=== PATIENT | female | born 1950 | race Caucasian/White ===

== ENCOUNTER 2019-10-25 13:37 | Inpatient (IN) | payer MEDICARE, OTHER ==
[~2019-10-25] VITALS: Ht 167.6 cm; Wt 81.2 kg
--- NOTE | 2019-10-25 14:00 | Emergency Department Note ---
History of Present Illnes History of Present Illness Chief Complaint: Flank Pain History of Present Illness This is a 69 year old female that is here complaining of left-sided flank pain for the last 4-6 days. Patient states that she's been taking hot baths for this which makes it better. No modifying factors. Currently moderate degree of pain . Historian: Patient Radiation: Reports back (L flank) Severity: moderate Onset quality: gradual Duration (how long): day(s) (5) Timing of current episode: constant Progression: worsening Context: Denies recent illness Relieving factors: other (hot therapy) Exacerbating factors: none Associated symptoms: Denies denies other symptoms, Denies confusion, Denies diaphoresis, Denies loss of appetite, Denies weakness Treatments prior to arrival: none Past Medical/Family History Physician Review I have reviewed the patient's past medical and family history. Any updates have been documented here. Review of Systems Review of Systems Constitutional: Reports no symptoms EENTM: Reports no symptoms Cardiovascular: Reports no symptoms Respiratory: Reports no symptoms Gastrointestinal: Reports no symptoms Genitourinary: Reports no symptoms Musculoskeletal: Reports no symptoms Integumentary: Reports no symptoms Neurological: Reports no symptoms Psychological: Reports no symptoms Endocrine: Reports no symptoms Hematological/Lymphatic: Reports no symptoms Physical Exam Related Data Allergies: Coded Allergies: No Known Allergies (Unverified , 10/25/19) Physical Exam CONSTITUTIONAL Constitutional: Present well-developed, Present well-nourished HENT HENT: Present normocephalic, Present atraumatic, Present oropharynx clear/moist, Present nose normal HENT L/R: Present left ext ear normal, Present right ext ear normal EYES Eyes: Reports PERRL, Reports conjunctivae normal NECK Neck: Present ROM normal PULMONARY Pulmonary: Present effort normal, Present breath sounds normal CARDIOVASCULAR Cardiovascular: Present regular rhythm, Present heart sounds normal, Present capillary refill normal, Present normal rate GASTROINTESTINAL Abdominal: Present soft, Present nontender, Present bowel sounds normal GENITOURINARY Genitourinary: Present exam deferred SKIN Skin: Present warm, Present dry MUSCULOSKELETAL Musculoskeletal: Present ROM normal NEUROLOGICAL Neurological: Present alert, Present oriented x 3, Present no gross motor or sensory deficits PSYCHOLOGICAL Psychological: Present mood/affect normal, Present judgement normal Assessment & Plan Medical Decision Making MDM Patient's a 69-year-old female that comes in here with left-sided flank pain. On exam, no tenderness to palpation, this could be muscle skeletal in nature but we will do a UA, labs and the CT to rule out AAA, rule out any other intra- abdominal pathology and also urinary sources. Reassessment Reassessment Patient with significant hyponatremia, acute renal failure. The patient she does not have a history of acute renal issues, states she takes metformin for her diabetes. Patient otherwise denies any other complaints at this time. Patient will be admitted for workup of hyponatremia by Dr. Peck Assessment & Plan Final Impression: (1) Acute renal failure (2) Hyponatremia Depart Disposition: ADMITTED JC ANAYA MD Oct 25, 2019 14:00
[2019-10-25] MEDS ORDERED: ACETAMINOPHEN 325 MG TAB PO PRN (14:15)
[2019-10-25 14:20] LABS: BASOPHILS % 0.3 % (0.0-1.0); EOSINOPHILS % 0.1 % (0.0-6.0); HEMATOCRIT 33.9 % (34.2-44.1); HEMOGLOBIN 11.3 g/dL (12.0-16.0); LYMPHOCYTES # (AUTO) 2.3 (1.0-3.2); LYMPHOCYTES % 19.4 % (18.0-39.1); MEAN CORPUSCULAR HEMOGLOBIN 28.3 pg (28-32); MEAN CORPUSCULAR HGB CONC 33.3 g/dL (31-35); MONOCYTES # (AUTO) 1.1 (0.2-0.8); MONOCYTES % 9.5 % (4.4-11.3); NEUTROPHILS # (AUTO) 8.4 (2.1-6.9); NEUTROPHILS % 70.4 % (38.7-80.0); PLATELET COUNT 327 x10e3/uL (140-360); RED BLOOD COUNT 3.99 x10e6/uL (3.6-5.1); RED CELL DISTRIBUTION WIDTH 12.6 % (11.7-14.4)
[2019-10-25 14:24] LABS: BILIRUBIN,URINE SMALL (NEGATIVE); CLARITY,URINE SL CLOUDY (CLEAR); COLOR,URINE YELLOW (YELLOW); KETONES,URINE NEGATIVE (NEGATIVE); LEUKOCYTE ESTERASE ,URINE SMALL (NEGATIVE); NITRITE,URINE NEGATIVE (NEGATIVE); PROTEIN,URINE DIPSTICK TRACE (NEGATIVE); URINE UROBILINOGEN 0.2 mg/dL (0.2 - 1)
[2019-10-25 14:35] LABS: ALBUMIN 3.9 g/dL (3.5-5.0); ALBUMIN/GLOBULIN RATIO 1.1 (0.8-2.0); ANION GAP 20.7 mmol/L (8-16); CALCIUM 8.7 mg/dL (8.4-10.2); CREATININE, SERUM 2.88 mg/dL (0.57-1.11); POTASSIUM 3.7 mmol/L (3.5-5.1)
[2019-10-25 14:38] LABS: AMORPHOUS SEDIMENT,URINE MODERATE (FEW); BACTERIA,URINE MODERATE /HPF; EPITHELIAL CELLS,URINE RARE /LPF; RBC,URINE 0-5 /HPF (0-5); TRANSITIONAL EPI CELLS,URINE FEW
--- NOTE | 2019-10-25 14:49 | Diagnostic Imaging Report ---
EXAM: CT Abdomen and Pelvis WITHOUT intravenous contrast INDICATION: Flank pain COMPARISON: None. TECHNIQUE: Abdomen and pelvis were scanned utilizing a multidetector helical scanner from the lung base to the pubic symphysis without administration of IV contrast. Coronal and sagittal reformations were obtained. IV CONTRAST: None ORAL CONTRAST: Water COMPLICATIONS: None RADIATION DOSE: Total DLP: 709 mGy*cm Dose modulation, iterative reconstruction, and/or weight based adjustment of the mA/kV was utilized to reduce the radiation dose to as low as reasonably achievable. FINDINGS: LOWER THORAX: Normal. HEPATOBILIARY: No focal hepatic lesions. No biliary ductal dilatation. The gallbladder appears unremarkable. SPLEEN: No splenomegaly. PANCREAS: No focal masses or ductal dilatation. ADRENALS: No adrenal nodules. KIDNEYS/URETERS: No hydronephrosis, stones, or solid mass lesions. PELVIC ORGANS/BLADDER: Unremarkable. PERITONEUM / RETROPERITONEUM: No free air or fluid. LYMPH NODES: No lymphadenopathy. VESSELS: Unremarkable. GI TRACT: No distention or wall thickening. BONES AND SOFT TISSUES: Unremarkable. IMPRESSION: No acute findings in the abdomen or pelvis. Specifically, no renal calculi or hydronephrosis. Signed by: Lyndon Myles MD on 10/25/2019 2:46 PM
[2019-10-25] MEDS ORDERED: LACTATED RINGER'S 1,000 ML INJ ONE (15:00)
--- NOTE | 2019-10-25 17:00 | NUR ---
RECEIVED TO RM AAOX3 NO DISTRESS NOTED, UPDATED ON POC VOICED UNDERSTANDING, DENIES PAIN AT THIS TIME, IVF INFUSING TO LEFT WRIST NO SS OF INFILTRATION NOTED, NO OTHER CO VOICED CALL LIGHT IN REACH WILL CONTINUE TO MONITOR
[2019-10-25 17:16] VITALS: BP 131/71
[2019-10-25] MEDS ORDERED: GLYBURIDE5 MG PO (18:29)
[2019-10-25] MEDS ORDERED: PRINIVIL20 MG PO (18:29)
[2019-10-25] MEDS ORDERED: ACTOS15 MG PO (18:29)
[2019-10-25] MEDS ORDERED: HYDROCHLOROTHIA25 MG PO (18:29)
[2019-10-25] MEDS ORDERED: METFORMIN HCL500 MG PO (18:29)
--- NOTE | 2019-10-25 19:08 | NUR ---
WALKING ROUNDS PERFORMED, RECEIVED PT LAYING SEMI FOWLERS IN BED, AAOX3, RR EVEN AND NON-LABORED, ON ROOM AIR. NO S/SX OF DISTRESS NOTED. LEFT PT LAYING SEMI FOWLERS IN BED, BED IN LOW LOCKED POSITION, SIDE RAILS UPX2, CALL LIGHT AND PHONE WITHIN REACH.
[2019-10-25 19:22] VITALS: BP 131/71
[2019-10-25 20:05] VITALS: BP 123/73
[2019-10-25] MEDS ORDERED: ONDANSETRON HCL INJ 2MG/ML 2ML 2 MG/ML VIAL IV PRN (20:30)
[2019-10-25] MEDS ORDERED: POLYETHYLENE GLYCOL 3350 17 GM PACK PO PRN (20:30)
[2019-10-25] MEDS ORDERED: HYDRALAZINE HCL 20 MG/ML VIAL IV PRN (20:30)
[2019-10-25] MEDS: SODIUM CHLORIDE 0.9% 1000ML 1,000 ML IV SCH (21:45)
[2019-10-25 22:00] VITALS: BP 123/73
[2019-10-26] VITALS (8 sets, daily range): BP systolic 105–144; BP diastolic 60–95
[2019-10-26] MEDS: ACETAMINOPHEN 325 MG TAB PO PRN (02:20)
--- NOTE | 2019-10-26 03:50 | NUR ---
CALLED TO PT ROOM BY CALL LIGHT. PT REPORTS SHE THINKS SHE PULLED HER IV OUT AND THERE IS BLOOD ON THE GROUND. PT FOUND STANDING BY CHAIR WITH BLOOD DRIPPING TO FLOOR FROM (L) HAND IV. IV NOTED TO BE OUT AT THIS TIME. ASSISTED PT TO AMBULATE TO BATHROOM AND CLEANSED HAND WITH SOAP AND WATER, DRESSING APPLIED. HAD FLOOR CLEANSED. NEW IV STARTED TO (R) FA 20G. FLUSHES WITHOUT DIFFICULTY AND BLOOD RETURN NOTED.
[2019-10-26 05:12] LABS: BASOPHILS # (AUTO) 0.1 (0.0-0.1); BASOPHILS % 0.4 % (0.0-1.0); EOSINOPHILS % 0.1 % (0.0-6.0); HEMATOCRIT 34.2 % (34.2-44.1); HEMOGLOBIN 11.8 g/dL (12.0-16.0); LYMPHOCYTES # (AUTO) 1.6 (1.0-3.2); LYMPHOCYTES % 12.9 % (18.0-39.1); MEAN CORPUSCULAR HEMOGLOBIN 29.1 pg (28-32); MEAN CORPUSCULAR HGB CONC 34.5 g/dL (31-35); MEAN CORPUSCULAR VOLUME 84.4 fL (81-99); MONOCYTES # (AUTO) 1.3 (0.2-0.8); MONOCYTES % 10.3 % (4.4-11.3); NEUTROPHILS # (AUTO) 9.2 (2.1-6.9); NEUTROPHILS % 75.9 % (38.7-80.0); PLATELET COUNT 241 x10e3/uL (140-360); RED BLOOD COUNT 4.05 x10e6/uL (3.6-5.1)
[2019-10-26 05:32] LABS: ALBUMIN 3.3 g/dL (3.5-5.0); ANION GAP 17.7 mmol/L (8-16); CHOL/HDL RATIO 2.6 (3.0-3.6); CREATININE, SERUM 2.95 mg/dL (0.57-1.11); MAGNESIUM 1.6 MG/DL (1.3-2.1); POTASSIUM 3.7 mmol/L (3.5-5.1)
--- NOTE | 2019-10-26 06:10 | NUR ---
CRITICAL NA CALLED TO KAYLA SAENZ NP. NEW ORDERS RECEIVED.
[2019-10-26] MEDS: SODIUM CHLORIDE 0.9% 1000ML 1,000 ML IV SCH (06:20)
--- NOTE | 2019-10-26 07:00 | NUR ---
BEDSIDE SHIFT REPORT RECEIVED PT IN STABLE CONDITION DENIES PAIN AT THIS TIME, UPDATED ON POC VOICED UNDERSTANDING, R FA 20G NO SS OF INFILTRATION NOTED,NO OTHER CO VCOIED CALL LIGHT IN REACH WILL CONTINUE TO MONTIOR
[2019-10-26 07:54] LABS: THYROID STIMULATING HORMONE 0.155 uIU/mL (0.350-4.940)
[2019-10-26] MEDS ORDERED: SODIUM CHLORIDE 1 GM TAB PO SCH (09:00)
[2019-10-26] MEDS: DOCUSATE SODIUM 100 MG CAP PO SCH ×2 (09:55→16:41)
[2019-10-26] MEDS: FAMOTIDINE 20 MG/2 ML VIAL IV SCH ×2 (09:55→16:41)
[2019-10-26] MEDS ORDERED: DEXTROSE 50% SYRINGE 50 ML IV PRN (13:15)
[2019-10-26 16:05] LABS: CREATININE,URINE RANDOM 29.33 mg/dL (47-110)
[2019-10-26 16:16] LABS: TOTAL PROTEIN, URINE < 6.8 mg/dL (1-14)
[2019-10-26] MEDS: INSULIN REGULAR, HUMAN 100 UNIT/1 ML 3ML VIAL SQ SCH ×2 (16:30→20:55)
[2019-10-26] MEDS: SODIUM CHLORIDE 1 GM TAB PO SCH ×2 (16:30→20:52)
[2019-10-26] MEDS: SODIUM BICARBONATE 8.4% 150 ML in STERILE WATER IV SOLN 1,000 ML IV SCH (16:40)
--- NOTE | 2019-10-26 17:10 | Diagnostic Imaging Report ---
EXAMINATION: Renal ultrasound. CLINICAL HISTORY :Acute renal failure COMPARISON: <None available.> TECHNIQUE: Grayscale and color Doppler evaluation of the kidneys and bladder was performed in transverse and longitudinal planes. DISCUSSION: RIGHT KIDNEY: The right kidney measures 10.9 cm in length and shows normal echogenicity. No hydronephrosis, shadowing calculi or solid mass lesions. LEFT KIDNEY: The left kidney measures 11.9 cm in length and shows normal echogenicity. No hydronephrosis, shadowing calculi or solid mass lesions. BLADDER: Unremarkable. IMPRESSION: 1. Unremarkable renal ultrasound. Signed by: Dr. Eric Hinojosa M.D. on 10/26/2019 5:06 PM
--- NOTE | 2019-10-26 17:55 | Consultation ---
DATE OF CONSULTATION: 10/26/2019 HISTORY OF PRESENT ILLNESS: A 69-year-old female, who apparently had some pain in her back with no dysuria. Apparently, sent over to the hospital, where she was found to have a serum sodium of 113 and renal insufficiency, which is why Renal was consulted. She is currently awake, alert, completely asymptomatic, sitting in a La-Z-Boy, giving me her history. She has history of diabetes and hypertension, has been on lisinopril/HCTZ as well as diabetic medications at home. She denies any nausea, vomiting, or diarrhea. She denies any history of kidney stone disease or any renal insufficiency in the past, had a workup done including CT scan, which showed without contrast shows no hydronephrosis, stones, or solid mass in the kidney. LABORATORY DATA: Labs show white count of 11.9, hemoglobin 11.3 with a sodium 113, potassium 3.7, bicarbonate 15 with a BUN and creatinine 33 and 2.95 respectively with a calcium of 8, phosphorus 5, total protein 6.7, globulin 3.4. LFTs show total bilirubin of 0.5. Her hemoglobin A1c is 11.8. She has been on 5 L and glyburide at home now. The medication she showed me did not have metformin and she does not remember if she has takes metformin nevertheless. She had a urinalysis done; specific gravity 1.025, 0 to 5 rbc's, 6 to 10 wbc's, and trace positive protein. She had a Coronavirus PCR test sent, which is pending. She is currently on normal saline 125 mL an hour. She is on docusate, famotidine, hydralazine p.r.n., ondansetron p.r.n., regular insulin, sodium chloride 2 g p.o. b.i.d., and temazepam. PHYSICAL EXAMINATION: GENERAL: Awake, alert, and oriented x3, sitting up, in no apparent distress. VITAL SIGNS: Blood pressure 136/60, pulse 81, afebrile, oxygen saturation 100%. HEAD AND NECK: Cornea clear. Oral mucosa moist. Neck veins flat. LUNGS: Relatively clear. No rales. HEART: S1 and S2 audible. ABDOMEN: Otherwise, soft and nontender. No apparent visceromegaly. EXTREMITIES: Lower extremity, no edema. IMPRESSION: 1. Hyponatremia. The patient completely asymptomatic, most likely due to HCTZ. Has evidence of metabolic acidosis, fairly concentrated urine. Anion gap improved from yesterday 20.7 to 17.7. 2. Acute kidney injury. Etiology unclear. PLAN: Plan on working up on discontinue IV normal saline, starting sterile water with 3 amps sodium bicarbonate IV. We will place on p.o. fluid restriction 1000 mL 24 hours. Change salt tablets to two tablets 3 times a day. Change it to her regular salt diet. In the meantime, we will obtain spot urine protein creatinine ratio, although the initial UA shows trace positive proteins. Hold off on metformin. I have asked her to stop taking lisinopril/HCTZ and stop taking metformin, she is taking that at home. Please see orders. MD EVON De Los Santos/[place]ILLE /[id number]
--- NOTE | 2019-10-26 19:00 | NUR ---
bedside shift report givne to oncoming nurse pt in stable condition, call light in reach will continue to monitor
--- NOTE | 2019-10-26 19:15 | NUR ---
Received patient awake, sitting on the recliner, call light within easy reach, advised to call for assistance anytime when needed, will continue to monitor closely.
[2019-10-26] MEDS: TEMAZEPAM 15 MG CAP PO PRN (20:52)
[2019-10-27] VITALS (7 sets, daily range): BP systolic 117–135; BP diastolic 64–72
--- NOTE | 2019-10-27 03:07 | History and Physical ---
CONSULTING PHYSICIAN: Torin Pacheco MD, with Nephrology. PRIMARY CARE PHYSICIAN: No PCP is listed. CHIEF COMPLAINT: Left flank pain. HISTORY OF PRESENT ILLNESS: The patient is a 69-year-old female with complaints of constant left flank pain for 4-6 days. She was using hot baths to alleviate the pain. The patient states she used cold compresses, then hot. Reports considerable stress in her life lately. She has a son, daughter, and oldest granddaughter, Robyn, who help her at home. PAST MEDICAL HISTORY: Diabetes mellitus, hypertension, and hyperlipidemia. She denies any history of kidney stones or UTIs. She takes hydrochlorothiazide for high blood pressure and takes metformin for diabetes. PAST SURGICAL HISTORY: None. FAMILY HISTORY: Mother at age 47 from cancer and her sister around age 48 from cancer as well. When asked what type of cancer they had, the patient states it was "wrapped around their heart." SOCIAL HISTORY: Denies use of tobacco or illicit drugs. She drinks alcohol on occasion. ALLERGIES: NO KNOWN ALLERGIES. REVIEW OF SYSTEMS: A 14-point review of systems was completed and was negative. According to the emergency department documentation, she did have diarrhea on admission, but this is subsequently dissipated. She has been having insomnia for about a week. Admits to being "stressed out." PHYSICAL EXAMINATION: VITAL SIGNS: Temperature 97.6, heart rate 81, blood pressure 136/60, respirations 20, oxygen saturation 100% on room air. Height 5 feet 6 inches, weight 179 pounds. BMI 28.88. Intake and output 4750 mL and output inaccurately recorded. GENERAL: Supine, no acute distress. LUNGS: Clear to auscultation. Respiratory pattern even and unlabored. No supplemental oxygen use. HEENT: EOMI. NECK: Supple. No JVD. CARDIOVASCULAR: Regular rate and rhythm. No murmur. She currently has sterile water with 3 amps of sodium bicarbonate infusing at 100 mL an hour into her peripheral IV. ABDOMEN: Bowel sounds positive. Soft, nontender. No guarding. EXTREMITIES: No pitting edema. No clubbing, cyanosis, or signs of DVT. NEUROLOGICAL: GCS 15. Nonfocal. Per nursing, she is forgetful and anxious. LABORATORY DATA: WBCs 12.14, hemoglobin 11.8, hematocrit 34.2, platelets 241. Sodium on admission 119. Sodium today 113, potassium 3.7, chloride 84, CO2 of 15, anion gap 17.7 down from 20.7, BUN 33, creatinine 2.95, estimated GFR 16, glucose 146, hemoglobin A1c 11.8%, calcium 8, phosphorus 5, magnesium 1.6, total bilirubin 0.5, AST 19, ALT 18, alkaline phosphatase 49, total protein 6.7, albumin 3.3, triglycerides 134, cholesterol 86, LDL 26, HDL 33, TSH 0.155. Urinalysis done 10/24 showed trace amount of protein, slightly cloudy, trace amount of blood, negative for nitrites, small amount of leukocyte esterases, small amount of urine bilirubin, wbc's 6-10, amorphous sediment moderate, urine bacteria moderate. Urine random sodium 37. Urine osmolality collected today still pending. Urine random total protein less than 6.8, urine creatinine 29.33, protein/creatinine ratio 0. 10/24 Coronavirus PCR not detected. IMAGING DATA: CT of the abdomen and pelvis on 10/24 showed no acute findings in the abdomen or pelvis, specifically no renal calculi or hydronephrosis. Renal ultrasound done 10/25 was unremarkable. ASSESSMENT AND PLAN: 1. Acute hyponatremia. Nephrology consulted. The patient has been placed on a fluid restriction of 1 L per day. IV fluids have been changed from normal saline to sterile water with 3 amps of sodium bicarbonate infusing at 100 mL an hour, 2 sodium tabs t.i.d. Hold metformin, hydrochlorothiazide, and any other nephrotoxic agents. Regular salt diet. 2. Metabolic acidosis, anion gap 17.7 (20.7). 3. Acute kidney injury, etiology unclear. 4. Metabolic encephalopathy, altered mental status is likely secondary to acute hyponatremia. 5. Controlled hypertension. Blood pressure 136/60. Monitor. 6. Uncontrolled type 2 diabetes mellitus with hyperglycemia. Hemoglobin A1c 11.8%, serum glucose 146. Monitor fingerstick blood glucose levels before meals and at bedtime. Sliding scale insulin. 7. Leukocytosis. WBCs 12.1 (11.92). Afebrile. Monitor white blood cell count level. 8. Prophylaxis. Pepcid. H and P billing code 21377. Time spent 60 minutes. Dictated by Kavon Stephens, [employer] Jaleel W Killam, MD H[facility]/MODL /[id number]
[2019-10-27] MEDS: SODIUM BICARBONATE 8.4% 150 ML in STERILE WATER IV SOLN 1,000 ML IV SCH ×2 (03:31→17:16)
[2019-10-27 05:22] LABS: BASOPHILS # (AUTO) 0.1 (0.0-0.1); BASOPHILS % 0.6 % (0.0-1.0); HEMATOCRIT 31.6 % (34.2-44.1); HEMOGLOBIN 10.8 g/dL (12.0-16.0); LYMPHOCYTES # (AUTO) 1.7 (1.0-3.2); LYMPHOCYTES % 18.2 % (18.0-39.1); MEAN CORPUSCULAR HEMOGLOBIN 28.3 pg (28-32); MEAN CORPUSCULAR HGB CONC 34.2 g/dL (31-35); MEAN CORPUSCULAR VOLUME 82.7 fL (81-99); MONOCYTES % 10.4 % (4.4-11.3); NEUTROPHILS # (AUTO) 6.7 (2.1-6.9); NEUTROPHILS % 70.5 % (38.7-80.0); PLATELET COUNT 328 x10e3/uL (140-360); RED BLOOD COUNT 3.82 x10e6/uL (3.6-5.1)
[2019-10-27 05:53] LABS: ALBUMIN 3.1 g/dL (3.5-5.0); ANION GAP 17.2 mmol/L (8-16); CALCIUM 7.8 mg/dL (8.4-10.2); CREATININE, SERUM 2.8 mg/dL (0.57-1.11); POTASSIUM 3.2 mmol/L (3.5-5.1)
[2019-10-27] MEDS: ACETAMINOPHEN 325 MG TAB PO PRN (06:28)
--- NOTE | 2019-10-27 07:17 | NUR ---
Bedside shift report done with dayshift RN
[2019-10-27] MEDS: INSULIN REGULAR, HUMAN 100 UNIT/1 ML 3ML VIAL SQ SCH ×4 (08:12→20:06)
[2019-10-27] MEDS: FAMOTIDINE 20 MG/2 ML VIAL IV SCH ×2 (08:19→17:31)
[2019-10-27] MEDS: DOCUSATE SODIUM 100 MG CAP PO SCH ×2 (08:19→17:33)
[2019-10-27] MEDS: SODIUM CHLORIDE 1 GM TAB PO SCH ×3 (08:19→20:06)
--- NOTE | 2019-10-27 09:39 | NUR ---
Call placed to the attending concerning the pt.'s chemistry levels as well as the portable router operator. Spoke with the PA for the attending and awaiting return call from the portable router operator.
[2019-10-27] MEDS ORDERED: POTASSIUM CHLORIDE 20MEQ/100ML 200 ML IV ONE (11:00)
[2019-10-27] MEDS: TEMAZEPAM 15 MG CAP PO PRN (20:09)
[2019-10-28] VITALS (8 sets, daily range): BP systolic 121–149; BP diastolic 64–100
[2019-10-28] MEDS: SODIUM BICARBONATE 8.4% 150 ML in STERILE WATER IV SOLN 1,000 ML IV SCH (03:18)
[2019-10-28 05:31] LABS: ALBUMIN 2.9 g/dL (3.5-5.0); ALBUMIN/GLOBULIN RATIO 0.9 (0.8-2.0); ANION GAP 16.2 mmol/L (8-16); CALCIUM 7.8 mg/dL (8.4-10.2); CREATININE, SERUM 2.65 mg/dL (0.57-1.11); POTASSIUM 3.2 mmol/L (3.5-5.1)
[2019-10-28] MEDS: INSULIN REGULAR, HUMAN 100 UNIT/1 ML 3ML VIAL SQ SCH ×4 (07:30→21:29)
[2019-10-28] MEDS: ACETAMINOPHEN 325 MG TAB PO PRN (07:50)
--- NOTE | 2019-10-28 08:45 | NUR ---
Called Kavon's phone to notify about patient's pain. Voicemail full. Awaiting for call back.
[2019-10-28] MEDS: DOCUSATE SODIUM 100 MG CAP PO SCH ×2 (09:22→17:14)
[2019-10-28] MEDS: SODIUM CHLORIDE 1 GM TAB PO SCH ×2 (09:22→17:14)
[2019-10-28] MEDS: FAMOTIDINE 20 MG/2 ML VIAL IV SCH ×2 (09:22→17:14)
[2019-10-28] MEDS: ACETAMINOPHEN/CODEINE 300MG - 30MG TAB PO PRN ×2 (09:37→18:34)
[2019-10-28] MEDS ORDERED: POTASSIUM CHLORIDE 20 MEQ TAB CR PO NR ×2 (11:30→17:00)
[2019-10-28] MEDS ORDERED: KETOROLAC TROMETHAMINE 30 MG/ML VIAL IV NR (11:30)
[2019-10-28] MEDS: LIDOCAINE 4% PATCH TP SCH (11:36)
[2019-10-28] MEDS: TEMAZEPAM 15 MG CAP PO PRN (21:29)
[2019-10-28] MEDS ORDERED: INSULIN GLARGINE 100 UNITS/ML VIAL SQ SCH (21:30)
--- NOTE | 2019-10-28 22:11 | Progress Note ---
DATE: SUBJECTIVE: The patient is exiting the bathroom. States she feels much better. Her chief complaint is left sacroiliac joint pain. Lidoderm patch was ordered and the patient states that helps significantly narrow her back pain 0/10 on a scale of 0-10 and she is using Tylenol No. 3 to also assist with that. OBJECTIVE: VITAL SIGNS: Temperature 98.5, heart rate 92, blood pressure 149/87, respirations 20, oxygen saturation 95% on room air. Per telemetry, sinus tachycardia with heart rate 105. GENERAL: Sitting on edge of bed during encounter. No acute distress. LUNGS: Clear to auscultation. Respiratory pattern even and unlabored. HEENT: EOMI. NECK: Supple. CARDIOVASCULAR: Regular rate and rhythm. No murmurs. She has sterile water with 3 amps of sodium bicarbonate infusing at 100 mL an hour into a peripheral IV. ABDOMEN: Bowel sounds positive. Soft. EXTREMITIES: No pitting edema. No clubbing, cyanosis, or marked swelling. NEUROLOGICAL: GCS 15. Nonfocal. LABORATORY DATA: Sodium 135, potassium 3.2, chloride 91, CO2 31, anion gap 16.2, BUN 29, creatinine 2.65, estimated GFR 18, glucose 162. Fingerstick blood glucose levels 336, 325, calcium 7.8, total bilirubin 0.3, AST 10, ALT 12, and alkaline phosphatase 53, total protein 6.1, albumin 2.9. No new imaging results. ASSESSMENT AND PLAN: 1. Acute hyponatremia. Nephrology continues to follow. Sodium level much improved at 135 (126, 126, 113). Continue fluid restriction 1 L per day. Remains on sodium chloride tabs 2 g p.o. b.i.d. Hold metformin, hydrochlorothiazide, and any other nephrotoxic agents. Regular salt diet. 2. Metabolic acidosis. Serum bicarbonate 31 (23, 15, 17). 3. Acute kidney injury on chronic kidney disease, stage 3. Etiology is unclear. BUN 29, creatinine 2.65, estimated GFR 18. Monitor. 4. Metabolic encephalopathy, altered mental status, likely secondary to acute hyponatremia. The patient's ammonia level on 10/26 was 40, within normal limits. 5. Controlled hypertension. Blood pressure 149/87. Monitor. 6. Uncontrolled type 2 diabetes mellitus with hyperglycemia. Hemoglobin A1c 11.8%. Fingerstick blood glucose levels 336, 325. Continue to hold home medication metformin. The patient is on regular insulin sliding scale. We will add Lantus insulin 10 units at bedtime to start tonight. 7. Leukocytosis, improved. WBCs 9.57 (12.14, 11.92). 8. Prophylaxis. Pepcid. Billing code 29620. Time spent 35 minutes. Dictated by Kavon Stephens, YURIDIA MD MILA Spring[facility]/MODL /[id number]
[2019-10-29] VITALS (7 sets, daily range): BP systolic 132–154; BP diastolic 63–92
--- NOTE | 2019-10-29 | NUR ---
SPOKE TO KAYLA SHI REGARDING MED LANTUS. NEW ORDER RECEIVED TO TOM CORREA
[2019-10-29 05:32] LABS: BASOPHILS % 0.3 % (0.0-1.0); HEMATOCRIT 31.8 % (34.2-44.1); HEMOGLOBIN 10.2 g/dL (12.0-16.0); LYMPHOCYTES # (AUTO) 2.8 (1.0-3.2); LYMPHOCYTES % 30.2 % (18.0-39.1); MEAN CORPUSCULAR HEMOGLOBIN 28.3 pg (28-32); MEAN CORPUSCULAR HGB CONC 32.1 g/dL (31-35); MEAN CORPUSCULAR VOLUME 88.1 fL (81-99); MONOCYTES % 10.5 % (4.4-11.3); NEUTROPHILS # (AUTO) 5.4 (2.1-6.9); NEUTROPHILS % 58.7 % (38.7-80.0); PLATELET COUNT 383 x10e3/uL (140-360); RED BLOOD COUNT 3.61 x10e6/uL (3.6-5.1); RED CELL DISTRIBUTION WIDTH 13.1 % (11.7-14.4)
[2019-10-29 06:07] LABS: ANION GAP 16.3 mmol/L (8-16); CREATININE, SERUM 2.43 mg/dL (0.57-1.11); POTASSIUM 3.3 mmol/L (3.5-5.1)
[2019-10-29] MEDS: INSULIN REGULAR, HUMAN 100 UNIT/1 ML 3ML VIAL SQ SCH ×3 (07:30→16:30)
[2019-10-29] MEDS: DOCUSATE SODIUM 100 MG CAP PO SCH ×2 (08:27→17:55)
[2019-10-29] MEDS: FAMOTIDINE 20 MG/2 ML VIAL IV SCH ×2 (08:27→17:55)
[2019-10-29] MEDS: SODIUM CHLORIDE 1 GM TAB PO SCH ×2 (08:29→17:55)
[2019-10-29] MEDS: LIDOCAINE 4% PATCH TP SCH (08:29)
[2019-10-29] MEDS: ACETAMINOPHEN/CODEINE 300MG - 30MG TAB PO PRN (13:01)
[2019-10-29] MEDS ORDERED: Lidocaine Patch TP (17:52)
[2019-10-29] MEDS ORDERED: GLIPIZIDE5 MG PO (17:52)
--- NOTE | 2019-10-29 18:50 | NUR ---
Discharge education provided. Home medication prescription given with the discharge packet. Patient is given education about low sodium diet and diabetic diet. PIV to right FA discontinued. Catheter tip intact, no bleeding noted. Awaiting for brass pickler.
--- NOTE | 2019-10-29 19:11 | NUR ---
Transported patient via wheelchair to private vehicle with all personal belongings taken.
--- NOTE | 2019-10-30 06:36 | Discharge Summary ---
CONSULTING PHYSICIAN: Torin Pacheco MD. CHIEF COMPLAINT: Left flank pain. HISTORY OF PRESENT ILLNESS: The patient is a 69-year-old female, who came in with constant left flank pain for 4 to 6 days. She was using hot baths to alleviate the pain. The patient states that she uses cold compresses and hot in order to get relieve. The patient reported considerable stress in her life lately. She has a son, daughter and oldest granddaughter, who help her at home. Please see history and physical for past medical history, past surgical history, family history, social history, and functional history. ALLERGIES: SHE HAS NO ALLERGIES. ADMITTING DIAGNOSES: 1. Acute hyponatremia. 2. Metabolic acidosis. 3. Acute kidney injury, etiology unclear. 4. Metabolic encephalopathy, altered mental status, likely secondary to acute hyponatremia. 5. Controlled hypertension. 6. Uncontrolled type 2 diabetes mellitus with hyperglycemia. 7. Leukocytosis. DISCHARGE DIAGNOSES: 1. Acute hyponatremia, resolved. 2. Metabolic acidosis, resolved. 3. Acute kidney injury on chronic kidney disease stage 3, improving. 4. Metabolic encephalopathy, altered mental status, likely secondary to acute hyponatremia, resolved. 5. Controlled hypertension. 6. Uncontrolled type 2 diabetes mellitus with hyperglycemia. 7. Leukocytosis, resolved. 8. Left sacroiliac joint pain. 9. Mild acute hypokalemia. HOSPITAL COURSE: On admission; sodium 119 on 10/24, which was worse on 10/25 to 113. Also on 10/24, potassium 3.7, chloride 85, CO2 of 17, and anion gap 20.7, BUN 31, creatinine 2.88, estimated GFR 16, glucose 192, calcium 8.7, total bilirubin 0.4, AST 18, ALT 20, alkaline phosphatase 54, total protein 7.3, albumin 3.9. WBCs 11.92, hemoglobin 11.3, hematocrit 33.9, and platelets 327. Urinalysis had shown wbc's 6 to 10, trace blood, trace protein, amorphous sediment and moderate urine bacteria. Urine random sodium 37, urine osmolality 169, random total protein less than 6.8, urine creatinine 29.33. Coronavirus PCR collected on 10/24, not detected. CT of the abdomen and pelvis done on 10/24 showed no acute findings in the abdomen or pelvis specifically no renal calculi or hydronephrosis. She had a renal ultrasound on 10/25, which was unremarkable. The patient had been on lisinopril/hydrochlorothiazide, glyburide 10 mg p.o. b.i.d., hydrochlorothiazide 25 mg p.o. daily, lisinopril 20 mg p.o. daily, metformin 500 mg p.o. b.i.d., and Actos 15 mg p.o. daily. Per Nephrology note, hyponatremia is most likely due to hydrochlorothiazide. The patient had evidence of metabolic acidosis with fairly concentrated urine. Her serum bicarbonate had been 15, anion gap improved from 20.7 to 17.7. IV normal saline was discontinued and the patient was started on sterile water with 3 amps of sodium bicarbonate IV at 100 mL an hour. Fluid was restricted to 1 L per 24 hours. She was given salt tablets 2 tablets t.i.d. and her diet was changed to regular salt diet. All of her home medications were held as well as any other nephrotoxic agents. Blood pressure is slightly elevated at times. However, overall was stable and she did not require any IV hydralazine during her stay. Her hemoglobin A1c was 11.8%. Her blood sugar was poorly controlled and she did require insulin per her low-dose sliding scale, but it was not until later in her stay that her diet was changed from a regular diet with normal sodium to 1800 calorie ADA, high sodium, i.e., 4 g sodium diet. The patient can be liberal with her salt shaker at home. No salt tabs needed at home. Case was discussed with Dr. Moura today. Okay to discharge the patient home from a Nephrology standpoint. She can follow up with her primary care physician, Iveth Proctor D.O. at [facility] in 1-2 weeks. The patient continue on the 1800 calorie ADA, high salt diet. Activity level as tolerated. Today's vital signs, temperature 97.9, heart rate blood pressure 137/70, respirations 20, oxygen saturation 98% on room air. Physical exam is unchanged. The patient can continue her Lidoderm patch at home as her blood sugars have been elevated and we are stopping the Actos and metformin and glyburide. We will send her home on glipizide 5 mg p.o. daily. Follow up with Dr. Pacheco in his office. She is to call the office to make an appointment. The underlying etiology of leukocytosis is unclear. Her WBC is 12.1 on admission. Labs on 10/28, the day of discharge, WBCs 9.27, hemoglobin 10.2, hematocrit 31.8, and platelets 383. Sodium 139, potassium 3.3, chloride 93, CO2 of 33, anion gap 16.3, BUN 25, creatinine 2.43, estimated GFR 20, glucose 178. Fingerstick blood glucose levels 188 297, calcium 8.0, and potassium chloride 40 mEq p.o. once for potassium level of 3.3. Dictated by Kavon Stephens, YURIDIA MD MILA SpringP/MODL /[id number]
== END 2019-10-29 19:11 | disposition home or self-care (01) | DRG 640 ==
LOC: ER 14:00 → ERHOLD 14:57 → MED/SURG 17:01 → OBSVTOIN 10-26 10:51 → UNDODISIN 10-27 15:21
PROVIDERS: ADMIT Internal Medicine; ATTEND Internal Medicine
DX: E87.1 Hypo-osmolality and hyponatremia (principal); G93.41 Metabolic encephalopathy; N17.9 Acute kidney failure, unspecified; E22.2 Syndrome of inappropriate secretion of antidiuretic hormone; E87.2 Acidosis; I10 Essential (primary) hypertension; E11.65 Type 2 diabetes mellitus with hyperglycemia; E87.6 Hypokalemia; Z11.59 Encounter for screening for other viral diseases; T50.2X5A Adverse effect of carbonic-anhydrase inhibitors, benzothiadiazides and other diuretics, initial encounter; E11.22 Type 2 diabetes mellitus with diabetic chronic kidney disease; I12.9 Hypertensive chronic kidney disease with stage 1 through stage 4 chronic kidney disease, or unspecified chronic kidney disease; N18.3 Chronic kidney disease, stage 3 (moderate); E87.8 Other disorders of electrolyte and fluid balance, not elsewhere classified
CPT/HCPCS: 36415; 74176; 76770; 80048; 80053; 80061; 81001; 82140; 82570; 82948; 83036; 83735; 83930; 83935; 84100; 84156; 84300; 84443; 85025; 99284; G0378; J1817; J3480; J7030; J7121; U0002

== ENCOUNTER 2019-11-04 08:28 | Emergency (ER) | payer MEDICARE, OTHER ==
[~2019-11-04] VITALS: Ht 167.6 cm; Wt 81.2 kg
[~2019-11-04 08:28] MED LIST: ACTOS15 MG PO; GLIPIZIDE5 MG PO; GLYBURIDE5 MG PO; HYDROCHLOROTHIA25 MG PO; Lidocaine Patch TP; METFORMIN HCL500 MG PO; PRINIVIL20 MG PO
[2019-11-04 08:59] LABS: BASOPHILS # (AUTO) 0.1 (0.0-0.1); BASOPHILS % 0.7 % (0.0-1.0); EOSINOPHILS % 0.1 % (0.0-6.0); HEMATOCRIT 33.4 % (34.2-44.1); HEMOGLOBIN 10.6 g/dL (12.0-16.0); LYMPHOCYTES % 20.5 % (18.0-39.1); MEAN CORPUSCULAR HEMOGLOBIN 28.2 pg (28-32); MEAN CORPUSCULAR HGB CONC 31.7 g/dL (31-35); MEAN CORPUSCULAR VOLUME 88.8 fL (81-99); MONOCYTES # (AUTO) 0.9 (0.2-0.8); MONOCYTES % 8.9 % (4.4-11.3); NEUTROPHILS # (AUTO) 6.8 (2.1-6.9); NEUTROPHILS % 69.1 % (38.7-80.0); PLATELET COUNT 445 x10e3/uL (140-360); RED BLOOD COUNT 3.76 x10e6/uL (3.6-5.1); RED CELL DISTRIBUTION WIDTH 12.9 % (11.7-14.4)
[2019-11-04] MEDS ORDERED: HYDROCODONE/APAP 7.5MG-325MG 1 EA TAB PO ONE (09:00)
[2019-11-04 09:09] LABS: CLARITY,URINE CLEAR (CLEAR); COLOR,URINE YELLOW (YELLOW); LEUKOCYTE ESTERASE ,URINE NEGATIVE (NEGATIVE)
[2019-11-04 09:10] LABS: BILIRUBIN,URINE NEGATIVE (NEGATIVE); KETONES,URINE NEGATIVE (NEGATIVE); NITRITE,URINE NEGATIVE (NEGATIVE); PROTEIN,URINE DIPSTICK NEGATIVE (NEGATIVE); URINE UROBILINOGEN 0.2 mg/dL (0.2 - 1)
--- OUTSIDE RECORDS SUMMARY | 2019-11-04 09:11 | XMS REPORT | Clinical Summary ---
Author Author [facility] ict Organization [facility] ict Address Unknown Phone Unavailable Care Team Providers Care Apple Turner Name Role Phone Iveth Proctor PCP Allergies No Known Allergies Medications End Date Status Medication Sig Dispensed Refills Start Date Active conjugated estrogens Insert 0.5 g 42.5 g 3 12/04 (PREMARIN) 0.625 mg/gram vaginally 5 vaginal creamIndications: daily. Menopausal vaginal dryness Active blood glucose meter Use as 1 Kit 0 directed.. 7 Active blood glucose (PRECISION Use 2 times 50 Each 5 1 XTRA TEST STRIPS) test weekly (once 7 strips per day on Mon,Th) to test blood sugar. Active lancets 28 gauge Use 2 times 100 Each 5 weekly as 7 directed. Active pioglitazone (ACTOS) 15 Take 1 tablet 90 tablet 1 mg tabletIndications: by mouth 0 Type 2 diabetes mellitus daily. with complication, without long-term current use of insulin Active atorvastatin (LIPITOR) 10 Take 1 tablet 90 tablet 1 mg tabletIndications: by mouth at 0 Mixed hyperlipidemia bedtime nightly For cholesterol. Active glyBURIDE-metFORMIN Take 2 360 tablet 1 (GLUCOVANCE) 5-500 mg per tablets by 0 tabletIndications: Type 2 mouth 2 times diabetes mellitus with daily (with complication, without meals) For long-term current use of diabetes.. insulin Active lisinopriL-hydrochlorothi Take 1 tablet 90 tablet 1 azide (ZESTORETIC) 20-25 by mouth 0 mg per tabletIndications: daily. Essential hypertension Active ibuprofen (MOTRIN) 600 mg Take 1 tablet 30 tablet 0 tabletIndications: Pain by mouth 0 in joint, multiple sites every 8 hours as needed for Pain. Active venlafaxine (EFFEXOR XR) Take 1 90 capsule 1 0 37.5 mg extended release capsule by 0 capsuleIndications: mouth daily. Anxiety 07/26/2019 Discontinued (Alternate ther apy) ibuprofen (MOTRIN) 800 mg Take 1 tablet 60 tablet 3 tablet by mouth 7 every 8 hours as needed for Pain For joint pains as needed. Take with food. 01/04/2019 Discontinued (Reorder) atorvastatin (LIPITOR) 10 Take 1 tablet 90 tablet 3 mg tabletIndications: by mouth at 8 Mixed hyperlipidemia bedtime nightly For cholesterol. 01/05/2019 Discontinued (Reorder) citalopram (CELEXA) 20 mg Take 1 tablet 90 tablet 3 tabletIndications: by mouth 8 Anxiety state, Mixed daily For hyperlipidemia depression/an xiety. 01/05/2019 Discontinued (Reorder) naproxen (NAPROSYN) 500 Take 1 tablet 60 tablet 0 mg tabletIndications: by mouth 2 9 Muscle pain times daily (with meals). 02/20/2019 tropicamide (MYDRIACYL) Instill 1 15 mL 0 0.5 % ophthalmic Drop in each 9 solutionIndications: Type eye once as 2 diabetes mellitus needed for up without complication, to 1 dose without long-term current (for poor use of insulin retina scan image). 01/04/2019 Discontinued (Reorder) lisinopril (PRINIVIL, Take 2 60 tablet 3 08/04 ZESTRIL) 10 mg tablets by 9 tabletIndications: mouth daily Essential hypertension For hypertension. . 01/04/2019 Discontinued (Reorder) glyBURIDE-metFORMIN Take 2 360 tablet 0 (GLUCOVANCE) 5-500 mg per tablets by 9 tabletIndications: Type 2 mouth 2 times diabetes mellitus with daily (with complication, without meals) For long-term current use of diabetes. insulin 01/04/2019 Discontinued (Reorder) pioglitazone (ACTOS) 15 Take 1 tablet 90 tablet 0 mg tabletIndications: by mouth 9 Type 2 diabetes mellitus daily For with complication, diabetes. without long-term current use of insulin 01/05/2019 Discontinued (Reorder) pioglitazone (ACTOS) 15 Take 1 tablet 30 tablet 0 mg tabletIndications: by mouth 9 Type 2 diabetes mellitus daily Needs with complication, appointment without long-term current with PCP. use of insulin 01/05/2019 Discontinued (Reorder) glyBURIDE-metFORMIN Take 2 120 tablet 0 (GLUCOVANCE) 5-500 mg per tablets by 9 tabletIndications: Type 2 mouth 2 times diabetes mellitus with daily (with complication, without meals) For long-term current use of diabetes. insulin Needs appointment with PCP. 01/05/2019 Discontinued (Reorder) lisinopril (PRINIVIL, Take 2 60 tablet 0 /0 ZESTRIL) 10 mg tablets by 9 tabletIndications: mouth daily Essential hypertension For hypertension. . 01/05/2019 Discontinued (Reorder) atorvastatin (LIPITOR) 10 Take 1 tablet 30 tablet 0 mg tabletIndications: by mouth at 9 Mixed hyperlipidemia bedtime nightly For cholesterol. 07/26/2019 Discontinued (Reorder) pioglitazone (ACTOS) 15 Take 1 tablet 90 tablet 1 mg tabletIndications: by mouth 9 Type 2 diabetes mellitus daily. with complication, without long-term current use of insulin 07/26/2019 Discontinued (Reorder) atorvastatin (LIPITOR) 10 Take 1 tablet 90 tablet 1 mg tabletIndications: by mouth at 9 Mixed hyperlipidemia bedtime nightly For cholesterol. 01/05/2019 Discontinued (Alternate ther apy) lisinopril (PRINIVIL, Take 1 tablet 90 tablet 1 ZESTRIL) 40 mg by mouth 9 tabletIndications: daily For Essential hypertension hypertension. . 06/22/2019 Discontinued (Reorder) glyBURIDE-metFORMIN Take 2 360 tablet 1 (GLUCOVANCE) 5-500 mg per tablets by 9 tabletIndications: Type 2 mouth 2 times diabetes mellitus with daily (with complication, without meals) For long-term current use of diabetes.. insulin 01/05/2019 tropicamide (MYDRIACYL) Instill 1 15 mL 0 0.5 % ophthalmic Drop in each 9 solutionIndications: Type eye once as 2 diabetes mellitus with needed for up complication, without to 1 dose long-term current use of (for poor insulin retina scan image). 07/26/2019 Discontinued (Alternate ther apy) naproxen (NAPROSYN) 500 Take 1 tablet 60 tablet 0 mg tabletIndications: by mouth 2 9 Pain in joint, multiple times daily sites (with meals). 01/05/2019 Discontinued (Alternate ther apy) citalopram (CELEXA) 20 mg Take 1 tablet 90 tablet 3 tabletIndications: by mouth 9 Anxiety state, Mixed daily For hyperlipidemia depression/an xiety. 08/03/2019 Discontinued venlafaxine (EFFEXOR XR) Take 1 90 capsule 1 1 37.5 mg extended release capsule by 9 capsuleIndications: mouth daily. Anxiety 06/22/2019 Discontinued (Reorder) lisinopril-hydrochlorothi Take 1 tablet 90 tablet 1 azide (ZESTORETIC) 20-25 by mouth 9 mg per tabletIndications: daily. Essential hypertension 07/26/2019 Discontinued (Reorder) lisinopriL-hydrochlorothi Take 1 tablet 90 tablet 1 azide (ZESTORETIC) 20-25 by mouth 0 mg per tabletIndications: daily. Essential hypertension 07/26/2019 Discontinued (Reorder) glyBURIDE-metFORMIN Take 2 360 tablet 1 (GLUCOVANCE) 5-500 mg per tablets by 0 tabletIndications: Type 2 mouth 2 times diabetes mellitus with daily (with complication, without meals) For long-term current use of diabetes.. insulin Active Problems Problem Noted Date Hyponatremia 04/18/2018 Inadequately controlled diabetes mellitus 01/12/2017 Pain in joints 12/15/2016 Essential hypertension 06/06/2015 BMI 35.0-35.9,adult 05/11/2014 Hypertension 09/26/2013 Diabetes mellitus 09/22/2013 HLD (hyperlipidemia) 09/22/2013 Anxiety state, unspecified 09/14/2007 Depression 09/14/2007 Hx of abnormal mammogram Vitamin D insufficiency Encounters Care Team Description Date Type Specialty Iveth Proctor DO Anxiety 08/03/2019 Refill Family Practice Iveth Proctor DO Anxiety 07/31/2019 Refill Family Practice Iveth Proctor DO Type 2 diabetes mellitus with complicati on, without long-term current use of insulin (Primary Dx); Mixed hyperlipidemia; Essential hypertension; Pain in joint, multiple sites 07/26/2019 Telephonic Family Practice Encounter Iveth Proctor DO Essential hypertension; Type 2 diabetes mellitus with complication, without long-term current use of insulin 06/21/2019 Refill Family Practice Iveth Proctor DO Type 2 diabetes mellitus with complicati on, without long-term current use of insulin (Primary Dx); Mixed hyperlipidemia; Essential hypertension; Preventative health care; Anxiety; Pain in joint, multiple sites; Anxiety state 01/05/2019 Office Visit Family Practice Iveth Proctor DO Anxiety; Abnormal eye finding 01/05/2019 Orders Only [facility] Vibha Mary RN Type 2 diabetes mellitus with complicati on, without long- term current use of insulin; Essential hypertension; Mixed hyperlipidemia 12/26/2018 Refill Family Practice after 11/03/2018 Immunizations Name Administration Dates Next Due Influenza Vaccine 05/11/2014 (Deferred: Patie nt Refused) PCV 13 (Pnuemococcal 08/24/2018 (Deferred: Patie nt Refused - pATIENT Conjugated 13 Valent) STATES SHE HARDLY GETS SICK ) Pneumoccoccal 12/14/2013 Tdap Tetanus, diphtheria, 08/24/2018 (Deferred: Hanane ent Refused - pATIENT acellular pertussis STATES SHE HARDLY GETS SICK ), 07/28/2013 Vaccine (Deferred: Patient Refused) Family History Medical History Relation Name Comments Cancer Mother LUNG CANCER Cancer Sister LUNG CANCER Relation Name Status Comments Brother Daughter Alive Father Alive NO CONTACT Mother Sister Sister Alive Sister Son Alive Social History Date Tobacco Use Types Packs/Day Years Used Never Smoker Smokeless Tobacco: Never Used Tobacco Cessation: Counseling Given: No Drinks/Week oz/Week Comments Alcohol Use 0.0 OCCASSIONAL /MONTHLY Yes Food Insecurity Answer Date Recorded Within the past 12 months, you worried that your Never denys e 12/15/2016 food would run out before you got money to buy more. Within the past 12 months, the food you bought Never true 12/15/2016 just didn't last and you didn't have mo marissa to get more. Sex Assigned at Date Recorded Not on file Industry Job Start Date Occupation Not on file Not on file Not on file Travel End Travel History Travel Start No recent travel history available. Date Recorded COVID-19 Exposure Response 10/30/2019 9:52 AM CDT In the last month, have you been in contact with No / Unsure someone who was confirmed or suspected to have Coronavirus / COVID-19? Last Filed Vital Signs Reading Time Taken Comments Vital Sign 177/93 01/05/2019 8:23 AM CDT Blood Pressure 88 01/05/2019 8:23 AM CDT Pulse 36.9 C (98.4 F) 01/05/2019 8:23 AM CDT Temperature 18 01/05/2019 8:23 AM CDT Respiratory Rate 95% 01/05/2019 8:23 AM CDT Oxygen Saturation - - Inhaled Oxygen Concentration 98 kg (216 lb) 01/05/2019 8:23 AM CDT Weight 165.1 cm (5' 5") 01/05/2019 8:23 AM CDT Height 35.94 01/05/2019 8:23 AM CDT Body Mass Index Plan of Treatment Care Team Description Date Type Specialty Iveth Proctor DO [address] [place] [address] [phone] medication refill - EC follow up 11/08/2019 Telephonic Family Practice Encounter Health Maintenance Due Date Last Done Comments Colorectal Cancer Scrn 01/12/2018 01/12/2017 Annual (FIT/FOBT) Age 50 to 75 Breast Cancer Scrn 08/25/2019 08/24/2018, (Yearly) 01/12/2017, 08/03/2014, Additional history exists DM Foot Exam (Yearly) 08/25/2019 08/24/2018, 12/15/2016, 09/26/2013 DM HGBA1C (Yearly) 01/06/2020 01/05/2019, 01/12/2017, 12/08/2016, Additional history exists DM Retinal Exam (Yearly) 01/06/2020 01/05/2019, 01/12/2017 IMM Pneumococcal Age 66 Completed 12/14/2013 and Up Goals Goal Patient Associated Recent Progress Patient-Stat Aut hor Goal Type Problems ed? Reduce occurrences of sadness Lifestyle Yes McAlman, or anxiety Ammon Nunez LOWER BLOOD GLUCOSE Lifestyle No Urszula Patel MD Exercise Regularly Self No Dorsey, management Dave Khalil III, MD Procedures Comments Procedure Name Priority Date/Time Associated Diag nosis VITAMIN B12 Routine 01/05/2019 Type 2 diabetes mellitus 9:56 AM CDT with complication, without long-term current use of insulin SED RATE Routine 01/05/2019 Pain in joint, multiple 9:56 AM CDT sites RA FACTOR Routine 01/05/2019 Pain in joint, multiple 9:56 AM CDT sites CCP IGG ABS Routine 01/05/2019 Pain in joint, multiple 9:56 AM CDT sites CBC Routine 01/05/2019 Type 2 diabetes mellitus 9:56 AM CDT with complication, without long-term current use of insulin B-TYPE NATRIURETIC Routine 01/05/2019 Preventativ e health care PEPTIDE (BNP) 9:56 AM CDT HIV AG/AB COMBO ROUTINE Routine 01/05/2019 Type 2 diabetes mellitus SCREENING 9:56 AM CDT with complication, without long-term current use of insulin THYROID STIMULATING Routine 01/05/2019 Type 2 david betes mellitus HORMONE (TSH) 9:56 AM CDT with complication, without long-term current use of insulin MICROALBUMIN / CREATININE Routine 01/05/2019 Type 2 diabetes mellitus URINE RATIO 9:56 AM CDT with complication, without long-term current use of insulin LIPID PROFILE Routine 01/05/2019 Type 2 diabetes mellitus 9:56 AM CDT with complication, without long-term current use of insulin CBC/DIFF Routine 01/05/2019 Type 2 diabetes mellitus 9:56 AM CDT with complication, without long-term current use of insulin COMPREHENSIVE METABOLIC Routine 01/05/2019 Type 2 diabetes mellitus PANEL 9:56 AM CDT with complication, without long-term current use of insulin HEMOGLOBIN A1C Routine 01/05/2019 Type 2 diabetes mellitus 9:56 AM CDT with complication, without long-term current use of insulin OPHTHALMOLOGY RETINAL Routine 01/05/2019 Type 2 d iabetes mellitus SCAN 9:40 AM CDT with complication, without long-term current use of insulin after 11/03/2018 Results * CBC/Diff (01/05/2019 9:56 AM CDT) WBC 9.1 4.5 - 11.0 K/uL [facility] RBC 4.68 4.20 - 5.40 M/uL [facility] Hemoglobin 13.6 12.0 - 16.0 g/dL [facility] Hematocrit 43.1 37.0 - 47.0 % [facility] MCV 92.1 (H) 82.0 - 92.0 fL [facility] MCH 29.1 27.0 - 32.0 pg [facility] MCHC 31.6 (L) 32.0 - 36.0 g/dL [facility] RDW 43.0 36.4 - 46.3 fL [facility] Platelet 251 150 - 400 K/uL [facility] Mean Platelet 12.2 9.4 - 12.4 fL [facility] Volume [facility] Percent NRBC 0.0 % [facility] Neutrophil 66.6 34.0 - 70.0 % [facility] Lymphs 26.0 20.0 - 50.0 % [facility] Monocytes 6.4 5.0 - 12.0 % [facility] Eos 0.0 (L) 0.7 - 5.0 % [facility] Basos 0.7 0.1 - 1.2 % [facility] Immature 0.3 0.0 - 0.5 % [facility] Granulocytes [facility] Neutrophils 6.04 1.56 - 6.13 K/uL [facility] (Absolute) [facility] Lymphs 2.36 1.18 - 3.74 K/uL [facility] (Absolute) [facility] Monocytes(Absol 0.58 (H) 0.24 - 0.36 K/uL [facility] [place] Eos (Absolute) 0.00 (L) 0.04 - 0.36 K/uL [facility] Baso (Absolute) 0.06 0.01 - 0.08 K/uL [facility] Immature Grans 0.03 0.00 - 0.03 K/uL [facility] (Abs) [facility] Absolute NRBC 0.00 K/uL [facility] Specimen Blood Performing Organization Address [facility] one Number [facility] [address] [place] [address] * HIV-1/HIV-2 Routine Screening (01/05/2019 9:56 AM CDT) Pathologist [facility] HIV Ag/Ab Combo Negative Negative [facility] Specimen Blood Performing Organization Address [facility] one Number [facility] [address] [place] [address] [phone] * Microalbumin / Creatinine Urine Ratio (01/05/2019 9:56 AM CDT) Pathologist [facility] Microalbumin, 4.4 <30.0 mg/dL [facility] Creatinine, 23 20 - 320 mg/dL [facility] Urine [facility] Urine 191.3 (H) 0.0 - 30.0 mg/g [facility] Microalbumin [facility] Specimen Urine - Voided, urine Performing Organization Address [facility] one Number [facility] [address] [place] [address] [phone] * Hemoglobin A1C (01/05/2019 9:56 AM CDT) Pathologist [facility] Hemoglobin A1c 13.5 (H) 4.3 - 6.1 % [facility] Estimated 341 (H) 70 - 110 mg/dL [facility] Average Glucose [facility] Specimen Blood Performing Organization Address [facility] one Number [facility] [address] [place] [address] [phone] * Comprehensive Metabolic Panel (01/05/2019 9:56 AM CDT) Sodium 135 (L) 136 - 145 mmol/L [facility] Potassium 4.7 3.5 - 5.1 mmol/L [facility] Chloride 94 (L) 98 - 107 mmol/L [facility] CO2 29 21 - 31 mmol/L [facility] Glucose 367 (H) 70 - 110 mg/dL [facility] Calcium 9.9 8.6 - 10.3 mg/dL [facility] Urea Nitrogen 15.0 7.0 - 25.0 mg/dL [facility] Creatinine 0.8 0.6 - 1.2 mg/dL [facility] Alkaline 76 34 - 104 U/L [facility] Phosphatase [facility] ALT 24 7 - 52 U/L [facility] AST 15 13 - 39 U/L [facility] Bilirubin, 0.4 0.2 - 1.2 mg/dL [facility] Total [facility] Total Protein 7.3 6.0 - 8.3 g/dL [facility] GFR, Estimated 71 (L) >=90 mL/min/1.73 m2 [facility] Albumin 4.4 3.7 - 5.3 g/dL [facility] Anion Gap 12 5 - 16 mmol/L [facility] Specimen Blood Performing Organization Address [facility] one Number [facility] [address] [place] [address] [phone] * CCP Anitbodies IgG & IgA (01/05/2019 9:56 AM CDT) Pathologist [facility] CCP Antibodies 9 0 - 19 units BT [facility] IgG/IgA Comment: Negative <20 Weak positive 20 - 39 Moderate positive 40 - 59 Strong positive >59 Specimen Blood Narrative Performed At Performed at: 01 - [facility] [address] [place] [address] [address] Commanding Officer: Enid Villatoro MD, Phone : [phone] Performing Organization Address [facility] one Number [facility] [address] [place] [address] * BNP [B-Type Natriuretic Peptide] (01/05/2019 9:56 AM CDT) Pathologist [facility] B Natriuretic 47 <=100 pg/mL [facility] Peptide (BNP) [facility] Specimen Blood Performing Organization Address [facility] one Number [facility] [address] [place] [address] * TSH [Thyroid Stimulating Hormone] (01/05/2019 9:56 AM CDT) Pathologist [facility] TSH 2.34 0.57 - 3.74 uIU/mL [facility] Comment: [facility] If , please see the following reference ranges (not verified by lab): 1st Trimester: 0.05 -3.70 uIU/mL 2nd Trimester: 0.31 -4.35 uIU/mL 3rd Trimester: 0.41 - 5.18 uIU/mL Specimen Blood Performing Organization Address [facility] one Number [facility] [address] [place] [address] * Vitamin B12 (01/05/2019 9:56 AM CDT) Pathologist [facility] Vitamin B12 427 See comment pg/mL [facility] Comment: [facility] Normal: 180-914 pg/mL Intermittent: 145-180 pg/mL Deficient: <=145.0 pg/mL Specimen Blood Performing Organization Address [facility] one Number [facility] [address] [place] [address] * SED Rate (01/05/2019 9:56 AM CDT) [facility] Sed Rate 57 (H) 0-<30 mm/Hr [facility] Specimen Blood Performing Organization Address [facility] one Number [facility] [address] [place] [address] * Ra Factor (01/05/2019 9:56 AM CDT) [facility] RA <10 <14 IU/mL [facility] Specimen Blood Performing Organization Address [facility] one Number [facility] [address] [place] [address] [phone] * Lipid Profile (01/05/2019 9:56 AM CDT) [facility] Cholesterol 144.0 <=200.0 mg/dL [facility] Triglyceride 132 <150 mg/dL [facility] HDL 51.0 See Reference Range [facility] Narrative. mg/dL [facility] LDL 67 <100 mg/dL [facility] Comment: [facility] Optimal: < 100.0 mg/dL Near Optimal: 120-129 mg/dL Borderline: 130-159 mg/dL High: 160-189 mg/dL Very High: >=190 mg/dL Patient Yes [facility] Fasting? LABOR[facility] Specimen Blood Performing Organization Address [facility] one Number [facility] [address] [place] [address] [phone] * OPHTHALMOLOGY RETINAL SCAN (01/05/2019 9:40 AM CDT) [facility] RETINAL ALERT (A) [facility] SCAN-FINAL RESULT Right Diabetic None [facility] Retinopathy Right Macular None [facility] Edema Right Other Suspected Cataract (A) [facility] Suspected Conditions Right Image Gradeable Image [facility] Quality Left Diabetic None [facility] Retinopathy Left Macular None [facility] Edema Left Other Suspected Cataract (A) [facility] Suspected Conditions Left Image Gradeable Image [facility] Quality Specimen Narrative Performed At Retinal Study Result for BERNARDO SUÁREZ JERRY, a 68 y/o, F (: 2, ) presented to [facility] on 01-05[facility]2019 for a retinal imaging study of the left and r ight eyes. Based on the findings of the study, the following is recommended for BERNARDO SUÁREZ Other Suspected Condition Found: Refer to [facility], next available appointment. For Follow-up at [facility]: The patient can be scheduled into any [facility] that has an ope n booking by calling the appointment center. Interpreting Provider's Comments: No comments provided Right Eye Findings: Negative for Diabetic Retinopathy. Other: Suspected Cataract Left Eye Findings: Negative for Diabetic Retinopathy. Other: Suspected Cataract This result was electronically signed Pete Lopez MD, , Taxonomy: [id number] on 01-05-2019 04:1 1:31 [facility] time. NOTE: Any pathology noted on this david betic retinal evaluation should be confirmed by an appropriate ophthalmic examination. Performing Organization Address [facility] Number [facility] after 11/03/2018 Insurance Type Payer Benefit Subscriber ID Effective Phone Address Plan / Dates Group [facility] SELF-PAY SELF-PAY xxxxxx 2018- [phone] [id number] [place] [address]
--- OUTSIDE RECORDS SUMMARY | 2019-11-04 09:11 | XMS REPORT | Continuity of Care Document ---
Author Author [facility] t Organization [facility] Address [address] [place] [address] Phone Unavailable Care Team Providers Care Cardiology Nurse Name Role Phone NO, PCP PCP Unavailable EDIS JOEL Attphys Unavailable Iveth Proctor DO Attphys Usman SALCIDO F Vibha Attphys Unavailable EDIS JOEL Admphys Unavailable Payers Payer Name Policy Type Policy Number Effective Date Expiration Date S ource Medicare A & B [id number] [facility] [id number] [id number] [place] [address] xxxxxx 2018 00:00:00 2028 2 3:59:59 [facility] Problems Condition Name Condition Details Condition Category Status Onset Date Resolution Date Last Treatment Date Treating Clinician Comments Source Hyponatremia Hyponatremia Disease Active 2018-04-18 00:00:00 [facility] Inadequately controlled diabetes mellitus Inadequately controlled diabetes mellitus Disease Active 2017-01-12 00:00:00 [facility] Pain in joints Pain in joints Disease Active 2016-12-15 00:00:00 [facility] Essential hypertension Essential hypertension Disease Active 2015-06-06 00:00:00 [facility] BMI 35.0-35.9,adult BMI 35.0-35.9,adult Disease Active 2014-05-11 00:00 :00 [facility] Hypertension Hypertension Disease Active 2013-09-26 00:00:00 [facility] Diabetes mellitus Diabetes mellitus Disease Active 2013-09-22 00:00:00 [facility] HLD (hyperlipidemia) HLD (hyperlipidemia) Disease Active 00:00:00 [facility] Anxiety state, unspecified Anxiety state, unspecified Disease Active 2007-09-14 00:00:00 [facility] Depression Depression Disease Active 2007-09-14 00:00:00 [facility] Acute renal failure Problem Active [facility] Hx of abnormal mammogram Hx of abnormal mammogram Disease Active [facility] Vitamin D insufficiency Vitamin D insufficiency Disease Active [facility] Allergies, Adverse Reactions, Alerts This patient has no known allergies or adverse reactions. Family History Family Member Diagnosis Comments Start Date Stop Date Source Natural mother Cancer [facility] Natural sister Cancer [facility] Social History Social Habit Start Date Stop Date Quantity Comments Source Alcohol Comment OCCASSIONAL /MONTHLY [facility] Sex Assigned At [facility] Exposure to SARS-CoV-2 (event) Not sure [facility] Alcohol intake 2019-07-26 00:00:00 2019-07-26 00:00:00 Current drinker of alcohol (finding) [facility] SDOH Food Worry 2016-12-15 00:00:00 2016-12-15 00:00:00 1 [facility] SDNC Food Scarcity 2016-12-15 00:00:00 2016-12-15 00:00:00 1 [facility] Smoking Status Start Date Stop Date Source Never smoker [facility] Medications Ordered Medication Name Filled Medication Name Start Date Stop Da te Current Medication? Ordering Clinician Indication Dosage Frequency Signature (SIG) Comments Components Source Glipizide Glipizide 2019-10-29 17:52:00 Yes 5 Daily [facility] Lidocaine Patch Lidocaine Patch 2019-10-29 17:52:00 Yes 1 Daily [facility] venlafaxine (EFFEXOR XR) 37.5 mg extended release capsule 2019-08-03 00:00:00 Yes Anxiety 37.5mg QD Take 1 capsule by mouth daily. [facility] pioglitazone (ACTOS) 15 mg tablet 2019-07-26 00:00:00 Yes Type 2 diabetes mellitus with complication, without long-term current use of insulin 15mg QD Take 1 tablet by mouth daily. [facility] atorvastatin (LIPITOR) 10 mg tablet 2019-07-26 00:00:00 Yes Mixed hyperlipidemia 10mg Take 1 tablet by paul at bedtime nightly For cholesterol. [facility] glyBURIDE-metFORMIN (GLUCOVANCE) 5-500 mg per tablet 2 00:00:00 Yes Type 2 diabetes mellitus wit h complication, without long-term current use of insulin 2{tbl} Take 2 tablets by mo uth 2 times daily (with meals) For diabetes.. [facility] lisinopriL-hydrochlorothiazide (ZESTORETIC) 20-25 mg per tab let 2019-07-26 00:00:00 Yes Essential hypertension 1{tbl} QD Take 1 t ablet by mouth daily. [facility] ibuprofen (MOTRIN) 600 mg tablet 2019-07-26 00:00:00 Yes Pain in joint, multiple sites 600mg Take 1 tablet by mouth every 8 h ours as needed for Pain. [facility] lisinopriL-hydrochlorothiazide (ZESTORETIC) 20-25 mg per tab let 2019-06-22 00:00:00 2019-07-26 00:00:00 No Essential hypertension 1{tbl} QD Take 1 tablet by mouth daily. [facility] glyBURIDE-metFORMIN (GLUCOVANCE) 5-500 mg per tablet 2019-06-22 00:00:00 2019-07-26 00:00:00 No Type 2 diabetes cristopher itus with complication, without long-term current use of insulin 2{tbl} Take 2 tablets by mouth 2 times daily (with meals) For diabetes.. [facility] venlafaxine (EFFEXOR XR) 37.5 mg extended release capsule 2019-01-05 00:00:00 2019-08-03 00:00:00 No Anxiety 37.5mg QD Take 1 capsule by mo uth daily. [facility] pioglitazone (ACTOS) 15 mg tablet 2019-01-05 00:00:00 2019 00:00:00 No Type 2 diabetes mellitus with complicati on, without long-term current use of insulin 15mg QD Take 1 tablet by mouth daily. [facility] atorvastatin (LIPITOR) 10 mg tablet 2019-01-05 00:00:0 0 2019-07-26 00:00:00 No Mixed hyperlipidemia 10mg Take 1 tablet by mouth at bedtime nightly For cholesterol. [facility] naproxen (NAPROSYN) 500 mg tablet 2019-01-05 00:00:00 2019 00:00:00 No Pain in joint, multiple sites 500mg Ta ke 1 tablet by mouth 2 times daily (with meals). [facility] glyBURIDE-metFORMIN (GLUCOVANCE) 5-500 mg per tablet 2019-01-05 00:00:00 2019-06-22 00:00:00 No Type 2 diabetes cristopher itus with complication, without long-term current use of insulin 2{tbl} Take 2 tablets by mouth 2 times daily (with meals) [facility].. [facility] lisinopril-hydrochlorothiazide (ZESTORETIC) 20-25 mg per tab let 2019-01-05 00:00:00 2019-06-22 00:00:00 No Essential hypertension 1{tbl} QD Take 1 tablet by mouth daily. [facility] lisinopril (PRINIVIL, ZESTRIL) 40 mg tablet 2018 00:00:00 2019-01-05 00:00:00 No Essential hypertension 40mg QD Ta ke 1 tablet by mouth daily For hypertension.. [facility] tropicamide (MYDRIACYL) 0.5 % ophthalmic solution 2019-01-05 00:00:00 2019-01-05 23:59:00 No Type 2 diabetes cristopher itus with complication, without long-term current use of insulin 1[drp] Instill 1 Drop in each eye once as needed for up to 1 dose (for poor retina scan image). [facility] citalopram (CELEXA) 20 mg tablet 2019-01-05 00:00:00 2019-01 00:00:00 No Mixed hyperlipidemia 20mg QD Take 1 tablet by [facility] daily For depression/anxiety. [facility] pioglitazone (ACTOS) 15 mg tablet 2019-01-04 00:00:00 2018 00:00:00 No Type 2 diabetes mellitus with complicati on, without long-term current use of insulin 15mg QD Take 1 tablet by mouth daily Needs appointment with PCP. [facility] glyBURIDE-metFORMIN (GLUCOVANCE) 5-500 mg per tablet 2019-01-04 00:00:00 2019-01-05 00:00:00 No Type 2 diabetes cristopher itus with complication, without long-term current use of insulin 2{tbl} Take 2 tablets by mouth 2 times daily (with meals) For diabetes. Needs appointment with PCP. [facility] lisinopril (PRINIVIL, ZESTRIL) 10 mg tablet 2018 00:00:00 2019-01-05 00:00:00 No Essential hypertension 20mg QD Ta ke 2 tablets by mouth daily For hypertension.. [facility] atorvastatin (LIPITOR) 10 mg tablet 2019-01-04 00:00:0 0 2019-01-05 00:00:00 No Mixed hyperlipidemia 10mg Take 1 tablet by mouth at bedtime nightly For cholesterol. [facility] glyBURIDE-metFORMIN (GLUCOVANCE) 5-500 mg per tablet 2018-09-08 00:00:00 2019-01-04 00:00:00 No Type 2 diabetes cristopher itus with complication, without long-term current use of insulin 2{tbl} Take 2 tablets by mouth 2 times daily (with meals) For diabetes. [facility] pioglitazone (ACTOS) 15 mg tablet 2018-09-08 00:00:00 2018 00:00:00 No Type 2 diabetes mellitus with complicati on, without long-term current use of insulin 15mg QD Take 1 tablet by mouth daily For diabetes. [facility] tropicamide (MYDRIACYL) 0.5 % ophthalmic solution 2018-08-24 00:00:00 2019-02-20 23:59:00 No Type 2 diabetes cristopher itus without complication, without long-term current use of insulin 1[drp] Instill 1 Drop in each eye once as needed for up to 1 dose (for poor retina scan image). [facility] lisinopril (PRINIVIL, ZESTRIL) 10 mg tablet 2018 00:00:00 2019-01-04 00:00:00 No Essential hypertension 20mg QD Ta ke 2 tablets by mouth daily For hypertension.. [facility] naproxen (NAPROSYN) 500 mg tablet 2018-05-30 00:00:00 2018 00:00:00 No Muscle pain 500mg Take 1 tablet by mouth 2 times daily ( with meals). [facility] citalopram (CELEXA) 20 mg tablet 2018-02-09 00:00:00 2019-01 00:00:00 No Mixed hyperlipidemia 20mg QD Take 1 tablet by mo [facility] daily For depression/anxiety. [facility] atorvastatin (LIPITOR) 10 mg tablet 2018-02-09 00:00:0 0 2019-01-04 00:00:00 No Mixed hyperlipidemia 10mg Take 1 tablet by mouth at bedtime nightly For cholesterol. [facility] blood glucose meter 2017-01-12 00:00:00 Yes Use as directed.. [facility] blood glucose (PRECISION XTRA TEST STRIPS) test strips 2017-01-12 00:00:00 Yes Use 2 times weekly (once per day on Wed,) to test blood sugar. [facility] lancets 28 gauge 2017-01-12 00:00:00 Yes Use 2 times weekly as directed. [facility] ibuprofen (MOTRIN) 800 mg tablet 2016-12-15 00:00:00 2019-07 00:00:00 No 800mg Take 1 tablet by paul every 8 hours as needed for Pain For joint pains as needed. Take with food. [facility] conjugated estrogens (PREMARIN) 0.625 mg/gram vaginal cream 2014-12-21 00:00:00 Yes Menopausal vaginal dryness .5g QD Insert 0.5 g vaginally daily. [facility] Glyburide Glyburide 2019-10-29 00:00:00 No 10 Twice A Day [facility] Hydrochlorothiazide Hydrochlorothiazide 2019-10-29 00:00:00 No 25 Daily [facility] Lisinopril (Prinivil) 20 Mg TABLET Lisinopril (Prinivil) 20 Mg T ABLET 2019-10-29 00:00:00 No 20 Daily [facility] Metformin Hcl Metformin Hcl 2019-10-29 00:00:00 No 500 Twice A Day [facility] Pioglitazone Hcl (Actos*) 15 Mg TABLET Pioglitazone Hcl (Actos*) 15 Mg TABLET 2019-10-29 00:00:00 No 15 Daily [facility] Immunizations Ordered Immunization Name Filled Immunization Name Date Status Comments Source Pneumoccoccal 2013-12-14 00:00:00 Completed [facility] Vital Signs Vital Name Observation Time Observation Value Comments Source Body Temperature 2019-10-29 16:31:00 99.4 [degF] [facility] BMI (Body Mass Index) 2019-10-29 00:10:00 28.9 kg/m2 [facility] Body Temperature 2019-10-27 11:23:00 98.0 [degF] [facility] BMI (Body Mass Index) 2019-10-27 00:22:00 28.9 kg/m2 [facility] Weight 2019-10-25 13:53:00 179 [lb_av] [facility] Systolic blood pressure 2019-01-05 08:23:00 177 mm[Hg] [facility] Diastolic blood pressure 2019-01-05 08:23:00 93 mm[Hg] [facility] Heart rate 2019-01-05 08:23:00 88 /min [facility] Body temperature 2019-01-05 08:23:00 36.89 Soumya [facility] Respiratory rate 2019-01-05 08:23:00 18 /min [facility] Body height 2019-01-05 08:23:00 165.1 cm [facility] Body weight 2019-01-05 08:23:00 97.977 kg [facility] BMI 2019-01-05 08:23:00 35.94 kg/m2 [facility] Oxygen saturation in Arterial blood by Pulse oximetry 2018-0403 08:23:00 95 /min [facility] Procedures Procedure Date / Time Performed Performing Clinician [facility] e Ultrasound, renal 2019-10-26 00:00:00 [facility] CT of abdomen and pelvis without contrast 2019-10-25 00:00:00 [facility] HEMOGLOBIN A1C 2019-01-05 09:56:00 Iveth Proctor [facility] COMPREHENSIVE METABOLIC PANEL 2019-01-05 09:56:00 Iveth Proctor [facility] CBC/DIFF 2019-01-05 09:56:00 Iveth Proctor [facility] LIPID PROFILE 2019-01-05 09:56:00 Iveth Proctor [facility] MICROALBUMIN / CREATININE URINE RATIO 2019-01-05 09:56:00 Iveth Proctor [facility] THYROID STIMULATING HORMONE (TSH) 2019-01-05 09:56:00 Amalia Proctor [facility] HIV AG/AB COMBO ROUTINE SCREENING 2019-01-05 09:56:00 Amalia Proctor [facility] B-TYPE NATRIURETIC PEPTIDE (BNP) 2019-01-05 09:56:00 Iveth Proctor [facility] CBC 2019-01-05 09:56:00 [facility] ABS 2019-01-05 09:56:00 Hitesh Ivethgwen patel RA FACTOR 2019-01-05 09:56:00 Iveth Proctor SED RATE 2019-01-05 09:56:00 HiteshIveth Alphonso patel VITAMIN B12 2019-01-05 09:56:00 Hitesh Iveth Alphonso patel OPHTHALMOLOGY RETINAL SCAN 2019-01-05 09:40:08 Iveth Proctor [facility] Planned Activity Planned Date Details Comments Source Future Scheduled Test 2020-01-06 00:00:00 Hemoglobin A1c dexter surement (procedure) [code = 69921556] [facility] Scheduled Test 2020-01-06 00:00:00 DM Retinal Exam (Y early) [code = DM Retinal Exam (Yearly)] [facility] Scheduled Test 2019-08-25 00:00:00 Breast Cancer Scrn (Yearly) [code = Breast Cancer Scrn (Yearly)] [facility] Scheduled Test 2019-08-25 00:00:00 DM Foot Exam (Year ly) [code = DM Foot Exam (Yearly)] [facility] Scheduled Test 2018-01-12 00:00:00 Screening for eyal gnant neoplasm of colon (procedure) [code = 115071750] [facility] Instructions Diabetes and Diet [facility] Instructions Hyponatremia [facility] Encounters Start Date/Time End Date/Time Encounter Type Admission Type [facility] Facility Care Department Encounter ID Source 2019-10-26 10:51:00 2019-10-29 19:11:00 Discharged Inpatient 1 EDIS JOEL [facility] [id number] [facility] 2019-03-10 00:00:00 2019-03-10 00:00:00 Outpatient [facility] [id number] [facility] 2019-02-23 00:00:00 2019-02-23 00:00:00 Outpatient [facility] [id number] [facility] 2019-02-13 00:00:00 2019-02-13 00:00:00 Outpatient [facility] [id number] [facility] 2019-01-17 00:00:00 2019-01-17 00:00:00 Outpatient [facility] [id number] [facility] 2019-01-06 00:00:00 2019-01-06 00:00:00 Outpatient [facility] [id number] [facility] 2019-01-05 09:40:39 2019-01-05 09:40:39 Outpatient [facility] [id number] [facility] 2019-01-05 09:30:02 2019-01-05 09:30:02 Outpatient [facility] [id number] [facility] 2019-01-05 08:23:12 2019-01-05 08:23:12 Outpatient [facility] [id number] [facility] 2019-01-05 00:00:00 2019-01-05 00:00:00 Outpatient [facility] [id number] [facility] 2018-12-14 00:00:00 2018-12-14 00:00:00 Outpatient [facility] [id number] [facility] 2018-11-21 00:00:00 2018-11-21 00:00:00 Outpatient [facility] [id number] [facility] 2018-11-21 00:00:00 2018-11-21 00:00:00 Outpatient [facility] [id number] [facility] 2018-10-19 00:00:00 2018-10-19 00:00:00 Outpatient [facility] [id number] [facility] 2018-10-19 00:00:00 2018-10-19 00:00:00 Outpatient [facility] [id number] [facility] 2018-10-19 00:00:00 2018-10-19 00:00:00 Outpatient [facility] [id number] [facility] 2018-09-21 00:00:00 2018-09-21 00:00:00 Outpatient [facility] [id number] [facility] 2018-09-21 00:00:00 2018-09-21 00:00:00 Outpatient [facility] [id number] [facility] 2018-08-24 14:57:45 2018-08-24 14:57:45 Outpatient [facility] [id number] [facility] 2018-08-24 14:41:12 2018-08-24 14:41:12 Outpatient [facility] [id number] [facility] 2018-08-24 14:37:31 2018-08-24 14:37:31 Outpatient [facility] [id number] [facility] 2018-08-24 13:40:11 2018-08-24 13:40:11 Outpatient [facility] [id number] [facility] 2018-06-23 00:00:00 2018-06-23 00:00:00 Outpatient [facility] [id number] [facility] 2018-05-19 00:00:00 2018-05-19 00:00:00 Outpatient [facility] [id number] [facility] 2018-04-15 12:24:00 2018-04-15 12:24:00 Outpatient [facility] [id number] [facility] 2018-02-15 00:00:00 2018-02-15 00:00:00 Outpatient [facility] [id number] [facility] 2018-02-08 00:00:00 2018-02-08 00:00:00 Outpatient [facility] [id number] [facility] 2018-01-21 00:00:00 2018-01-21 00:00:00 Outpatient [facility] [id number] [facility] 2017-07-22 14:10:20 2017-07-22 14:10:20 Outpatient [facility] [id number] [facility] 2017-07-22 00:00:00 2017-07-22 00:00:00 Outpatient [facility] [id number] [facility] 2017-07-12 00:00:00 2017-07-12 00:00:00 Outpatient [facility] [id number] [facility] 2017-05-17 00:00:00 2017-05-17 00:00:00 Outpatient [facility] [id number] [facility] 2017-02-23 00:00:00 2017-02-23 00:00:00 Outpatient [facility] [id number] [facility] 2017-02-15 00:00:00 2017-02-15 00:00:00 Outpatient [facility] [id number] [facility] 2017-02-09 00:00:00 2017-02-09 00:00:00 Outpatient [facility] [id number] [facility] 2017-01-27 00:00:00 2017-01-27 00:00:00 Outpatient [facility] [id number] [facility] 2017-01-19 00:00:00 2017-01-19 00:00:00 Outpatient [facility] [id number] [facility] 2017-01-12 13:17:03 2017-01-12 13:17:03 Outpatient [facility] [id number] [facility] 2017-01-12 10:54:01 2017-01-12 10:54:01 Outpatient [facility] [id number] [facility] 2017-01-12 08:54:08 2017-01-12 08:54:08 Outpatient [facility] [id number] [facility] 2017-01-12 08:44:20 2017-01-12 08:44:20 Outpatient [facility] [id number] [facility] 2017-01-11 00:00:00 2017-01-11 00:00:00 Outpatient [facility] [id number] [facility] 2016-12-15 10:22:38 2016-12-15 10:22:38 Outpatient [facility] [id number] [facility] 2016-12-08 09:52:46 2016-12-08 09:52:46 Outpatient [facility] [id number] [facility] 2016-11-30 00:00:00 2016-11-30 00:00:00 Outpatient [facility] [id number] [facility] 2016-11-23 00:00:00 2016-11-23 00:00:00 Outpatient [facility] [id number] [facility] 2016-10-19 00:00:00 2016-10-19 00:00:00 Outpatient [facility] [id number] [facility] Results Test Description Test Time Test Comments Results Result Comments Source Capillary blood glucose measurement by glucometer (mas s/volume) 2019-10-29 16:03:00 Test Item Bedside Glucose (test code = 66012-3) 312 70-120 Meter ID: [id number] automated count (number/volume)2019-10-29 04:35:00* Test Item Value Reference Range Interpretation Comments White Blood Count (test code = 6690-2) 9.27 4.8-10.8 [facility] (number/volume)2019-10-29 04:35:00* Test Item Value Reference Range Interpretation Comments Red Blood Count (test code = 789-8) 3.61 3.6-5.1 [facility] (moles/volume)2019-10-29 04:35:00* Test Item Value Reference Range Interpretation Comments Hemoglobin (test code = 89203-6) 10.2 12.0-16.0 [facility] hematocrit (volume fraction)2019-10-29 04:35:00* Test Item Value Reference Range Interpretation Comments Hematocrit (test code = 4544-3) 31.8 34.2-44.1 [facility] eryth[facility] mean corpuscular [id number] 04:35:00* Test Item Value Reference Range Interpretation Comments Mean Corpuscular Volume (test code = 787-2) 88.1 81-99 [facility] mean corpuscular hemoglobin (mass per erythrocyte)2019-10-29 04:35:00* Test Item Value Reference Range Interpretation Comments Mean Corpuscular Hemoglobin (test code = 785-6) 28.3 28-32 [facility] eryth[facility] mean corpuscular hemoglobin concentration measurement (mass/volume)2019-10-29 04:35:00* Test Item Value Reference Range Interpretation Comments Mean Corpuscular Hemoglobin Concent (test code = 786-4) 32.1 31-35 [facility] CenterRDW [id number]-[id number] 04:35:00* Test Item Value Reference Range Interpretation Comments Red Cell Distribution Width (test code = 58825-1) 13.1 11.7 -14.4 [facility] platelet count (count/volume)2019-10-29 04:35:00* Test Item Value Reference Range Interpretation Comments Platelet Count (test code = 777-3) 383 140-360 [facility] segmented neutrophil count as percentage of total [id number] 04:35:00* Test Item Value Reference Range Interpretation Comments Neutrophils (%) (Auto) (test code = 82691-8) 58.7 38.7-80.0 [facility] Center[facility] lymphocyte count as percentage ot total [id number] 04:35:00* Test Item Value Reference Range Interpretation Comments Lymphocytes (%) (Auto) (test code = 736-9) 30.2 18.0-39.1 [facility] monocyte count as percentage of total ppcrnspsih6252-04-98 04:35:00* Test Item Value Reference Range Interpretation Comments Monocytes (%) (Auto) (test code = 5905-5) 10.5 4.4-11.3 [facility] eosinophil count as percentage of total axnshwobgf6903-51-51 04:35:00* Test Item Value Reference Range Interpretation Comments Eosinophils (%) (Auto) (test code = 713-8) 0.0 0.0-6.0 [facility] basophil count as percentage of total mukukawbft0831-04-19 04:35:00* Test Item Value Reference Range Interpretation Comments Basophils (%) (Auto) (test code = 706-2) 0.3 0.0-1.0 [facility] CenterFluoroscopic procedure less than one hour [id number] 04:35:00* Test Item Value Reference Range Interpretation Comments IM GRANULOCYTES % (test code = IM GRANULOCYTES %) 0.3 0.0- 1.0 [facility] neutrophil count 2019-10-29 04:35:00* Test Item Value Reference Range Interpretation Comments Neutrophils # (Auto) (test code = 751-8) 5.4 2.1-6.9 [facility] CenterBlood lymphocytes count (number/volume) 2019-10-29 04:35:00* Test Item Value Reference Range Interpretation Comments Lymphocytes # (Auto) (test code = 37719-3) 2.8 1.0-3.2 [facility] CenterBlood monocytes automated count (number/volume)2019-10-29 04:35:00* Test Item Value Reference Range Interpretation Comments Monocytes # (Auto) (test code = 742-7) 1.0 0.2-0.8 [facility] CenterAutomated blood eosinophil count 2019-10-29 04:35:00* Test Item Value Reference Range Interpretation Comments Eosinophils # (Auto) (test code = 711-2) 0.0 0.0-0.4 [facility] CenterAutomated blood basophil count (count/volume)2019-10-29 04:35:00* Test Item Value Reference Range Interpretation Comments Basophils # (Auto) (test code = 704-7) 0.0 0.0-0.1 [facility] CenterFluoroscopic procedure less than one hour llcdkyaf1581-16-53 04:35:00* Test Item Value Reference Range Interpretation Comments Absolute Immature Granulocyte (auto (ирина t code = Absolute Immature Granulocyte (auto) 0.03 0-0.1 [facility]ere[facility] plasma sodium measurement (moles/volume)2019-10-29 04:35:00* Test Item Value Reference Range Interpretation Comments Sodium Level (test code = 2951-2) 139 136-145 [facility]ererum or plasma potassium measurement (moles/volume)2019-10-29 04:35:00* Test Item Value Reference Range Interpretation Comments Potassium Level (test code = 2823-3) 3.3 3.5-5.1 [facility]ererum or plasma chloride measurement (moles/volume)2019-10-29 04:35:00* Test Item Value Reference Range Interpretation Comments Chloride Level (test code = 2075-0) 93 98-107 [facility]ererum or plasma carbon dioxide, total measurement (moles/volume)2019-10-29 04:35:00* Test Item Value Reference Range Interpretation Comments Carbon Dioxide Level (test code = 2028-9) 33 22-29 [facility]ererum or plasma anion xki7676-67-46 04:35:00* Test Item Value Reference Range Interpretation Comments Anion Gap (test code = 61321-9) 16.3 8-16 [facility]ererum or plasma urea nitrogen measurement (mass/volume)2019-10-29 04:35:00* Test Item Value Reference Range Interpretation Comments Blood Urea Nitrogen (test code = 3094-0) 25 7-26 [facility]ererum or plasma creatinine measurement (mass/volume)2019-10-29 04:35:00* Test Item Value Reference Range Interpretation Comments Creatinine (test code = 2160-0) 2.43 0.57-1.11 [facility]ererum or plasma urea nitrogen/creatinine mass iilpn7689-23-29 04:35:00* Test Item Value Reference Range Interpretation Comments BUN/Creatinine Ratio (test code = 3097-3) 10 6-25 [facility] CenterEstimated glomerular filtration rate (GFR) syywtsqnqchar9643-05-57 04:35:00* Test Item Value Reference Range Interpretation Comments Estimat Glomerular Filtration Rate (test code = 344667518) 20 >60 Ranges were taken from the National Kidney Disease Education Program and the [facility] literature.Reference ranges:60 or greater: Lmqxmg62-68 ( for 3 consecutive months): Chronic kidney disease 15 or less: Kidney failureNacogdoches Medical CenterGlucose aeecdshcgma3692-18-37 04:35:00* Test Item Value Reference Range Interpretation Comments Glucose Level (test code = BAY7512) 178 74-118 [facility]ererum or plasma calcium measurement (mass/volume)2019-10-29 04:35:00* Test Item Value Reference Range Interpretation Comments Calcium Level (test code = 13611-4) 8.0 8.4-10.2 [facility]ererum or plasma total bilirubin measurement (mass/volume)2019-10-28 04:50:00* Test Item Value Reference Range Interpretation Comments Total Bilirubin (test code = 1975-2) 0.3 0.2-1.2 [facility] CenterFluoroscopic procedure less than one hour hjszhxih0865-34-18 04:50:00* Test Item Value Reference Range Interpretation Comments Aspartate Amino Transf (AST/SGOT) (test code = Aspartate Amino Transf (AST/SGOT)) 10 5-34 [facility]ererum or plasma alanine aminotransferase measurement (enzymatic activity/volume)2019-10-28 04:50:00* Test Item Value Reference Range Interpretation Comments Alanine Aminotransferase (ALT/SGPT) (test code = 1742-6) 12 0-55 [facility]ererum or plasma protein measurement (mass/volume)2019-10-28 04:50:00* Test Item Value Reference Range Interpretation Comments Total Protein (test code = 2885-2) 6.1 6.5-8.1 [facility]ererum or plasma albumin measurement (mass/volume)2019-10-28 04:50:00* Test Item Value Reference Range Interpretation Comments Albumin (test code = 1751-7) 2.9 3.5-5.0 [facility] CenterPlasma globulin measurement (mass/volume) 2019-10-28 04:50:00* Test Item Value Reference Range Interpretation Comments Globulin (test code = 00291-1) 3.2 2.3-3.5 [facility]ererum or plasma albumin/globulin mass fnkte6032-91-37 04:50:00* Test Item Value Reference Range Interpretation Comments Albumin/Globulin Ratio (test code = 1759-0) 0.9 0.8-2.0 [facility]ererum or plasma alkaline phosphatase measurement (enzymatic activity/volume)2019-10-28 04:50:00* Test Item Value Reference Range Interpretation Comments Alkaline Phosphatase (test code = 6768-6) 53 40-150 [facility] CenterCapillary blood glucose measurement by glucometer (mass/volume)2019-10-27 11:02:00* Test Item Value Reference Range Interpretation Comments Bedside Glucose (test code = 54538-7) 226 70-120 Meter ID: [id number] Medical CenterBlood leukocytes automated count (number/volume)2019-10-27 05:15:00* Test Item Value Reference Range Interpretation Comments White Blood Count (test code = 6690-2) 9.57 4.8-10.8 [facility] CenterBlood erythrocytes automated count (number/volume)2019-10-27 05:15:00* Test Item Value Reference Range Interpretation Comments Red Blood Count (test code = 789-8) 3.82 3.6-5.1 [facility] CenterBlood hemoglobin measurement (moles/volume)2019-10-27 05:15:00* Test Item Value Reference Range Interpretation Comments Hemoglobin (test code = 11755-7) 10.8 12.0-16.0 [facility] CenterAutomated blood hematocrit (volume fraction)2019-10-27 05:15:00* Test Item Value Reference Range Interpretation Comments Hematocrit (test code = 4544-3) 31.6 34.2-44.1 [facility] CenterAutomated erythrocyte mean corpuscular xgvwnc7649-09-22 05:15:00* Test Item Value Reference Range Interpretation Comments Mean Corpuscular Volume (test code = 787-2) 82.7 81-99 [facility] CenterAutomated erythrocyte mean corpuscular hemoglobin (mass per erythrocyte)2019-10-27 05:15:00* Test Item Value Reference Range Interpretation Comments Mean Corpuscular Hemoglobin (test code = 785-6) 28.3 28-32 [facility] CenterAutomated erythrocyte mean corpuscular hemoglobin concentration measurement (mass/volume)2019-10-27 05:15:00* Test Item Value Reference Range Interpretation Comments Mean Corpuscular Hemoglobin Concent (test code = 786-4) 34.2 31-35 [facility] CenterRDW BdxVu-Zav0784-45-24 05:15:00* Test Item Value Reference Range Interpretation Comments Red Cell Distribution Width (test code = 61973-2) 12.0 11.7 -14.4 [facility] CenterAutomated blood platelet count (count/volume)2019-10-27 05:15:00* Test Item Value Reference Range Interpretation Comments Platelet Count (test code = 777-3) 328 140-360 [facility] CenterAutcone health women[facility] hospitaled blood segmented neutrophil count as percentage of total tyvonbewet6787-22-37 05:15:00* Test Item Value Reference Range Interpretation Comments Neutrophils (%) (Auto) (test code = 42695-3) 70.5 38.7-80.0 [facility] CenterAutomated blood lymphocyte count as percentage ot total tqbqiirtkb0424-42-98 05:15:00* Test Item Value Reference Range Interpretation Comments Lymphocytes (%) (Auto) (test code = 736-9) 18.2 18.0-39.1 [facility] CenterAutomated blood monocyte count as percentage of total mjrhucuhui8560-04-26 05:15:00* Test Item Value Reference Range Interpretation Comments Monocytes (%) (Auto) (test code = 5905-5) 10.4 4.4-11.3 [facility] CenterAutomated blood eosinophil count as percentage of total azcduhgyxb3997-67-79 05:15:00* Test Item Value Reference Range Interpretation Comments Eosinophils (%) (Auto) (test code = 713-8) 0.0 0.0-6.0 [facility] CenterAutomated blood basophil count as percentage of total rgtvtoddvw4926-62-63 05:15:00* Test Item Value Reference Range Interpretation Comments Basophils (%) (Auto) (test code = 706-2) 0.6 0.0-1.0 [facility] CenterFluoroscopic procedure less than one hour utpmpkte3414-10-48 05:15:00* Test Item Value Reference Range Interpretation Comments IM GRANULOCYTES % (test code = IM GRANULOCYTES %) 0.3 0.0- 1.0 [facility] CenterAutomated blood neutrophil count 2019-10-27 05:15:00* Test Item Value Reference Range Interpretation Comments Neutrophils # (Auto) (test code = 751-8) 6.7 2.1-6.9 [facility] CenterBlood lymphocytes count (number/volume) 2019-10-27 05:15:00* Test Item Value Reference Range Interpretation Comments Lymphocytes # (Auto) (test code = 93535-3) 1.7 1.0-3.2 [facility] CenterBlchildren[facility] [place] monocytes automated count (number/volume)2019-10-27 05:15:00* Test Item Value Reference Range Interpretation Comments Monocytes # (Auto) (test code = 742-7) 1.0 0.2-0.8 [facility] CenterAutomated blood eosinophil count 2019-10-27 05:15:00* Test Item Value Reference Range Interpretation Comments Eosinophils # (Auto) (test code = 711-2) 0.0 0.0-0.4 [facility] CenterAutomated blood basophil count (count/volume)2019-10-27 05:15:00* Test Item Value Reference Range Interpretation Comments Basophils # (Auto) (test code = 704-7) 0.1 0.0-0.1 [facility] CenterFluoroscopic procedure less than one hour mbvyxxac7942-48-81 05:15:00* Test Item Value Reference Range Interpretation Comments Absolute Immature Granulocyte (auto (ирина t code = Absolute Immature Granulocyte (auto) 0.03 0-0.1 [facility]ererum or plasma sodium measurement (moles/volume)2019-10-27 05:15:00* Test Item Value Reference Range Interpretation Comments Sodium Level (test code = 2951-2) 126 136-145 [facility]ererum or plasma potassium measurement (moles/volume)2019-10-27 05:15:00* Test Item Value Reference Range Interpretation Comments Potassium Level (test code = 2823-3) 3.2 3.5-5.1 [facility]ererum or plasma chloride measurement (moles/volume)2019-10-27 05:15:00* Test Item Value Reference Range Interpretation Comments Chloride Level (test code = 2075-0) 89 98-107 [facility]ererum or plasma carbon dioxide, total measurement (moles/volume)2019-10-27 05:15:00* Test Item Value Reference Range Interpretation Comments Carbon Dioxide Level (test code = 2028-9) 23 22-29 [facility]ererum or plasma anion ias3868-63-07 05:15:00* Test Item Value Reference Range Interpretation Comments Anion Gap (test code = 04610-8) 17.2 8-16 [facility]ererum or plasma urea nitrogen measurement (mass/volume)2019-10-27 05:15:00* Test Item Value Reference Range Interpretation Comments Blood Urea Nitrogen (test code = 3094-0) 33 7-26 [facility]ererum or plasma creatinine measurement (mass/volume)2019-10-27 05:15:00* Test Item Value Reference Range Interpretation Comments Creatinine (test code = 2160-0) 2.80 0.57-1.11 [facility]ererum or plasma urea nitrogen/creatinine mass exrdo2873-02-49 05:15:00* Test Item Value Reference Range Interpretation Comments BUN/Creatinine Ratio (test code = 3097-3) 12 6-25 [facility] CenterEstimated glomerular filtration rate (GFR) oqugemldupiub7126-39-17 05:15:00* Test Item Value Reference Range Interpretation Comments Estimat Glomerular Filtration Rate (test code = 590133751) 17 >60 Ranges were taken from the National Kidney Disease Education Program and the [facility] Kidney Foundation literature.Reference ranges:60 or greater: Eehald00-23 ( for 3 consecutive months): Chronic kidney disease 15 or less: Kidney failureNacogdoches Medical CenterGlucose cjfofqsprye4254-71-98 05:15:00* Test Item Value Reference Range Interpretation Comments Glucose Level (test code = MSS1977) 121 74-118 [facility]ererum or plasma calcium measurement (mass/volume)2019-10-27 05:15:00* Test Item Value Reference Range Interpretation Comments Calcium Level (test code = 28158-1) 7.8 8.4-10.2 [facility]ererum or plasma total bilirubin measurement (mass/volume)2019-10-27 05:15:00* Test Item Value Reference Range Interpretation Comments Total Bilirubin (test code = 1975-2) 0.4 0.2-1.2 [facility] CenterFluoroscopic procedure less than one hour bdkcijwx5396-80-72 05:15:00* Test Item Value Reference Range Interpretation Comments Aspartate Amino Transf (AST/SGOT) (test code = Aspartate Amino Transf (AST/SGOT)) 14 5-34 [facility]ererum or plasma alanine aminotransferase measurement (enzymatic activity/volume)2019-10-27 05:15:00* Test Item Value Reference Range Interpretation Comments Alanine Aminotransferase (ALT/SGPT) (test code = 1742-6) 14 0-55 [facility] CenterAmmonia Jqr-sObn7168-90-24 05:15:00* Test Item Value Reference Range Interpretation Comments Ammonia (test code = 19160-7) 40 31-123 [facility]ererum or plasma protein measurement (mass/volume)2019-10-27 05:15:00* Test Item Value Reference Range Interpretation Comments Total Protein (test code = 2885-2) 6.1 6.5-8.1 [facility]ererum or plasma albumin measurement (mass/volume)2019-10-27 05:15:00* Test Item Value Reference Range Interpretation Comments Albumin (test code = 1751-7) 3.1 3.5-5.0 [facility] CenterPlasma globulin measurement (mass/volume) 2019-10-27 05:15:00* Test Item Value Reference Range Interpretation Comments Globulin (test code = 10239-5) 3.0 2.3-3.5 [facility]ererum or plasma albumin/globulin mass ejmrf1514-52-45 05:15:00* Test Item Value Reference Range Interpretation Comments Albumin/Globulin Ratio (test code = 1759-0) 1.0 0.8-2.0 [facility]ererum or plasma alkaline phosphatase measurement (enzymatic activity/volume)2019-10-27 05:15:00* Test Item Value Reference Range Interpretation Comments Alkaline Phosphatase (test code = 6768-6) 51 40-150 [facility] CenterAmmonia Rst-aShf1010-61-24 05:15:00* Test Item Value Reference Range Interpretation Comments Ammonia (test code = 14514-6) 40 31-123 [facility] CenterUS RENAL RETROPERITONEAL DDTD4713-11-94 17:05:00 [facility] [address] [place] [address] Patient Name: YARELI BOCANEGRA MR #: [id number] : 1950 Age/Sex: 69/F Req #: [id number] Adm Physician: EDIS JOEL MD Ordered by: GHASSAN VUONG, MAYNOR VUONG Report #: [id number] Location: MED/SURG Room/Bed: [facility] Procedure: [id number] US/US JARVIS L RETROPERITONEAL COMP Exam Date: 10/26/19 Exam Time : 1558 REPORT STATUS: Signed EXA MINATION: Renal ultrasound. CLINICAL HISTORY :Acute renal failure COMP ARISON: <None available.> TECHNIQUE: Grayscale and color Doppler evaluation of the kidneys and bladder was performed in transverse and longitudinal planes. DISCUSSION: RIGHT KIDNEY: The right kidney measures 10.9 cm in length and shows normal echogenicity. No hydronephrosis, shadowing calculi or solid mass lesions. LEFT KIDNEY: The left kidney measures 11.9 cm in length and shows normal echogenicity. No hydronephrosis, shadowing calculi or solid mass lesions. BLADDER: Unremarkable. IMPRESSION: 1. Unremarkable renal ultrasound. Signed by: Dr. Lauri Noguera M.D. on 10/26/2019 5:06 PM Dictated By: LAURI NOGUERA MD 05 Transcribed By: ANBOR on 10/26/191705 COPY TO: MAYNOR FERRELL Urine protein measurement (mass/volume)2019-10-26 15:26:00* Test Item Value Reference Range Interpretation Comments Urine Random Total Protein (test code = 2888-6) < 6.8 1-14 [facility] CenterUrine sodium measurement (moles/volume) 2019-10-26 15:26:00* Test Item Value Reference Range Interpretation Comments Urine Random Sodium (test code = 2955-3) 37 [facility] CenterUrine creatinine measurement (mass/volume)2019-10-26 15:26:00* Test Item Value Reference Range Interpretation Comments Urine Creatinine (test code = 2161-8) 29.33 47-110 [facility] CenterRandom urine protein/creatinine ratio 2019-10-26 15:26:00* Test Item Value Reference Range Interpretation Comments Urine Protein/Creatinine Ratio (test code = 75669-9) 0.00 [facility] CenterOsmolality of Batut9014-45-47 15:26:00* Test Item Value Reference Range Interpretation Comments Urine Osmolality (test code = 2695-5) 169 . 24 hr : 300 - 900 Random: 50 - 1400 After 12hr fluid restriction: >850Performed at: HD - [facility] [address] [id number] Director: Garett Irvin MD, Phone: [phone] Medical CenterUrine protein measurement (mass/volume)2019-10-26 15:26:00* Test Item Value Reference Range Interpretation Comments Urine Random Total Protein (test code = 2888-6) < 6.8 1-14 [facility] CenterUrine sodium measurement (moles/volume) 2019-10-26 15:26:00* Test Item Value Reference Range Interpretation Comments Urine Random Sodium (test code = 2955-3) 37 [facility] CenterUrine creatinine measurement (mass/volume)2019-10-26 15:26:00* Test Item Value Reference Range Interpretation Comments Urine Creatinine (test code = 2161-8) 29.33 47-110 [facility] CenterRandom urine protein/creatinine ratio 2019-10-26 15:26:00* Test Item Value Reference Range Interpretation Comments Urine Protein/Creatinine Ratio (test code = 26415-6) 0.00 [facility] CenterOsmolality of Rbhfy2394-10-92 15:26:00* Test Item Value Reference Range Interpretation Comments Urine Osmolality (test code = 2695-5) 169 . 24 hr : 300 - 900 Random: 50 - 1400 After 12hr fluid restriction: >850Performed at: [facility] - [facility] [address] [id number] Director: Garett Irvin MD, Phone: [phone] Medical CenterFluoroscopic procedure less than one hour fssgyzsv8187-25-05 05:00:00* Test Item Value Reference Range Interpretation Comments Hemoglobin A1c Percent (test code = Hemoglobin A1c Percent) 11.8 4.0-7.0 [facility] CenterPhosphorus vkeqecdyxoo0967-32-53 05:00:00 * Test Item Value Reference Range Interpretation Comments Phosphorus Level (test code = EAZ2876) 5.0 2.3-4.7 [facility]ererum or plasma magnesium measurement (mass/volume)2019-10-26 05:00:00* Test Item Value Reference Range Interpretation Comments Magnesium Level (test code = 87718-1) 1.6 1.3-2.1 [facility]ererum or plasma triglyceride measurement (mass/volume)2019-10-26 05:00:00* Test Item Value Reference Range Interpretation Comments Triglycerides Level (test code = 2571-8) 134 0-149 [facility]ererum or plasma cholesterol measurement (mass/volume)2019-10-26 05:00:00* Test Item Value Reference Range Interpretation Comments Cholesterol Level (test code = 2093-3) 86 0-199 Less than 200 mg/dL Low Kqxk697 - 239 mg/dL Borderline Ssoa977 m g/dl and greater High Risk [facility]ererum or plasma cholesterol in LDL measurement (mass/volume) 2019-10-26 05:00:00* Test Item Value Reference Range Interpretation Comments LDL Cholesterol (test code = 2089-1) 26 60-130 [facility]ererum or plasma cholesterol in HDL measurement (mass/volume)2019-10-26 05:00:00* Test Item Value Reference Range Interpretation Comments HDL Cholesterol (test code = 2085-9) 33 40-60 [facility]ererum or plasma total cholesterol/cholesterol in HDL mass zskfv8908-16-73 05:00:00* Test Item Value Reference Range Interpretation Comments Cholesterol/HDL Ratio (test code = 9830-1) 2.6 3.0-3.6 [facility]ererum or plasma thyrotropin measurement by detection limit <= 0.005 miu/l (units/volume)2019-10-26 05:00:00* Test Item Value Reference Range Interpretation Comments Thyroid Stimulating Hormone (TSH) (test code = 71369-3) 0.155 0.350-4.940 [facility] CenterOsmolality of Serum or Ibppet9988-22-59 05:00:00* Test Item Value Reference Range Interpretation Comments Serum Osmolality (test code = 2692-2) 241 280-301 Performed at: - [facility] [id number] Director: Garett Irvin MD, Phone: [phone] Medical CenterFluoroscopic procedure less than one hour edolinxe1605-89-68 05:00:00* Test Item Value Reference Range Interpretation Comments Hemoglobin A1c Percent (test code = Hemoglobin A1c Percent) 11.8 4.0-7.0 [facility] CenterPhosphorus unzhtxtsuvg1526-30-49 05:00:00 * Test Item Value Reference Range Interpretation Comments Phosphorus Level (test code = IFM6211) 5.0 2.3-4.7 [facility]ererum or plasma magnesium measurement (mass/volume)2019-10-26 05:00:00* Test Item Value Reference Range Interpretation Comments Magnesium Level (test code = 68875-1) 1.6 1.3-2.1 [facility]ererum or plasma triglyceride measurement (mass/volume)2019-10-26 05:00:00* Test Item Value Reference Range Interpretation Comments Triglycerides Level (test code = 2571-8) 134 0-149 [facility]ererum or plasma cholesterol measurement (mass/volume)2019-10-26 05:00:00* Test Item Value Reference Range Interpretation Comments Cholesterol Level (test code = 2093-3) 86 0-199 Less than 200 mg/dL Low Eogy318 - 239 mg/dL Borderline Vcew550 m g/dl and greater High Risk [facility]ererum or plasma cholesterol in LDL measurement (mass/volume) 2019-10-26 05:00:00* Test Item Value Reference Range Interpretation Comments LDL Cholesterol (test code = 2089-1) 26 60-130 [facility]ererum or plasma cholesterol in HDL measurement (mass/volume)2019-10-26 05:00:00* Test Item Value Reference Range Interpretation Comments HDL Cholesterol (test code = 2085-9) 33 40-60 [facility]ererum or plasma total cholesterol/cholesterol in HDL mass sfurc3325-30-11 05:00:00* Test Item Value Reference Range Interpretation Comments Cholesterol/HDL Ratio (test code = 9830-1) 2.6 3.0-3.6 [facility]ererum or plasma thyrotropin measurement by detection limit <= 0.005 miu/l (units/volume)2019-10-26 05:00:00* Test Item Value Reference Range Interpretation Comments Thyroid Stimulating Hormone (TSH) (test code = 60839-3) 0.155 0.350-4.940 [facility] CenterOsmolality of Serum or Dmasle2657-96-68 05:00:00* Test Item Value Reference Range Interpretation Comments Serum Osmolality (test code = 2692-2) 241 280-301 Performed at: - [facility] [id number] [place], [place] [id number] Director: Garett Irvin MD, Phone: [phone] [facility] StationFluoroscopic procedure less than one hour komrpjxb4859-84-95 16:23:00* Test Item Value Reference Range Interpretation Comments Coronavirus (PCR) (test code = Coronavirus (PCR)) NOT DETECTED NOTD ETECTED SARS-COV-2 (COVID19), HIGHRISK, RT-PCRNegative results do not preclude SARS-CoV- 2 infection and should not be used as the sole basis for patient management deci sions. Negative results must be combined with clinical observations, patient his tory, and epidemiological information. Optimum specimen types and timing for pea k viral levels during infections caused by SARS-CoV-2 have not been determined. Collection of multiple specimens ot types of specimens may be necessary to detec t virus. Improper specimen collection and handling, sequence variability under p rimers/probes, or organism present below the limit of detection may lead to fals e negative results. Positive and negative predictive values of testing are highl y dependent on prevalance. False negative test results are more likely when prev alence is high.The expected result is negative (not detected).The SARS-CoV-2 ирина t is intended for the qualitative detection of nucleic acid from SARS-CoV-2 in n asopharyngeal and oropharyngeal swab samples from patients who meet COVID-19 cli nical and or epidemiological criteria. For lower respiratory tract specimens, th e assay is submitted for authoriztion by FDA under an Emergency Use Authorizatio n (EUA). Testing methodology is real time RT-PCR. If received as separate collec tion devices, nasopharygeal and oropharyngeal specimens are combined for analysi s. Additional specimens may be split to a separate accession for analysi and rep orting as this test includes a single unit of service.Test results must be corre lated with clinical presentation and evaluated in the context of other laborator y and epidemiologic data. Test performance can be affected because the epidemiol ogy and clinical spectrum of infection caused by SARS-CoV-2 is not fully known. For example, the optimum types of specimens to collect and when during the cours e of infection these specimens are most likely to contain detectable viral RNA m ay not be known.This test has not been Food and Drug Administration (FDA) cleare d or approved and has been authorized by FDA under an Emergency Use Authorizatio n (EUA). The test is only authorized for the duration of the declaration that ci rcumstances exist justifying the authorization of emergency use of in vitro diag nostic tests for detection and/or diagnosis of SARS-CoV-2 under section 564(b) o f the Act, 21 U.S.C. section 360bbb-3(b)(1), unless the authorization is termina drake or revoked sooner. [facility] are certified under the C linical Laboratory Improvement Amendments of 1988 (CLIA), 42 U.S.C. section 263a , to perform high complexity tests.Testing performed by [facility] [address] [phone] Director: Jason Jackson M.D.CLIA # [id number] [facility] Fluoroscopic procedure less than one hour [id number] 16:23:00* Test Item Value Reference Range Interpretation Comments Coronavirus (PCR) (test code = Coronavirus (PCR)) NOT DETECTED NOTD ETECTED SARS-COV-2 (COVID19), HIGHRISK, RT-PCRNegative results do not preclude SARS-CoV- 2 infection and should not be used as the sole basis for patient management deci sions. Negative results must be combined with clinical observations, patient his tory, and epidemiological information. Optimum specimen types and timing for pea k viral levels during infections caused by SARS-CoV-2 have not been determined. Collection of multiple specimens ot types of specimens may be necessary to detec t virus. Improper specimen collection and handling, sequence variability under p rimers/probes, or organism present below the limit of detection may lead to fals e negative results. Positive and negative predictive values of testing are highl y dependent on prevalance. False negative test results are more likely when prev alence is high.The expected result is negative (not detected).The SARS-CoV-2 ирина t is intended for the qualitative detection of nucleic acid from SARS-CoV-2 in n asopharyngeal and oropharyngeal swab samples from patients who meet COVID-19 cli nical and or epidemiological criteria. For lower respiratory tract specimens, th e assay is submitted for authoriztion by FDA under an Emergency Use Authorizatio n (EUA). Testing methodology is real time RT-PCR. If received as separate collec tion devices, nasopharygeal and oropharyngeal specimens are combined for analysi s. Additional specimens may be split to a separate accession for analysi and rep orting as this test includes a single unit of service.Test results must be corre lated with clinical presentation and evaluated in the context of other laborator y and epidemiologic data. Test performance can be affected because the epidemiol ogy and clinical spectrum of infection caused by SARS-CoV-2 is not fully known. For example, the optimum types of specimens to collect and when during the cours e of infection these specimens are most likely to contain detectable viral RNA m ay not be known.This test has not been Food and Drug Administration (FDA) cleare d or approved and has been authorized by FDA under an Emergency Use Authorizatio n (EUA). The test is only authorized for the duration of the declaration that ci rcumstances exist justifying the authorization of emergency use of in vitro diag nostic tests for detection and/or diagnosis of SARS-CoV-2 under section 564(b) o f the Act, 21 U.S.C. section 360bbb-3(b)(1), unless the authorization is termina drake or revoked sooner. [facility] are certified under the C linical Laboratory Improvement Amendments of 1988 (CLIA), 42 U.S.C. section 263a , to perform high complexity tests.Testing performed by [facility] [id number] [place], [place] [phone] Director: Jaosn Jackson M.D.CLIA # [id number] [facility]/PELVIS [id number] 14:41:00 [place] [address] Patient Name: YARELI BOCANEGRA MR #: [id number] : 1950 Age/Sex: 69/F Req #: [id number] Adm Physician: Ordered by: JC ANAYA MD Report #: [id number] Location: ER Room/Bed: Procedure: [id number] CT/CT ABDOME N/PELVIS WO Exam Date: 10/25/19 Exam Time: 1420 REPORT STATUS: Signed EXAM: CT Abdom en and Pelvis WITHOUT intravenous contrast INDICATION: Flank pain CO MPARISON: None. TECHNIQUE: Abdomen and pelvis were scanned utilizing a AptDecot MasCupontector helical scanner from the lung base to the pubic symphysis without ad ministration of IV contrast. Coronal and sagittal reformations were obtained. IV CONTRAST: None ORAL CONTRAST: Water COMPLICATIO NS: None RADIATION DOSE: Total DLP: 709 mGy*cm Dose modulation, ite rative reconstruction, and/or weight based adjustment of the mA/kV was utilize d to reduce the radiation dose to as low as reasonably achievable. FINDI NGS: LOWER THORAX: Normal. HEPATOBILIARY: No focal hepatic lesions. No b iliary ductal dilatation. The gallbladder appears unremarkable. SPLEEN: N o splenomegaly. PANCREAS: No focal masses or ductal dilatation. ADRENA LS: No adrenal nodules. KIDNEYS/URETERS: No hydronephrosis, stones, or solid m ass lesions. PELVIC ORGANS/BLADDER: Unremarkable. PERITONEUM / RETROPERIT ONEUM: No free air or fluid. LYMPH NODES: No lymphadenopathy. VESSELS: Unrem arkable. GI TRACT: No distention or wall thickening. BONES AND SOFT TI SSUES: Unremarkable. IMPRESSION: No acute findings in the abdomen or pel vis. Specifically, no renal calculi or hydronephrosis. Signed by: Aarti Hawkins MD on 10/25/2019 2:46 PM Dictated By: AARTI HAWKINS MD Electronically S igned By: AARTI HAWKINS MD on 10/25/19 1446 Transcribed By: NABOR on 10/25/19 14 46 COPY TO: JC ANAYA MD Urine color determination 2019-10-25 14:07:00* Test Item Value Reference Range Interpretation Comments Urine Color (test code = 5778-6) YELLOW [facility]LLOW [facility] kgzsqmp3218-49-59 14:07:00* Test Item Value Reference Range Interpretation Comments Urine Clarity (test code = 39091-2) SL CLOUDY CLEAR [facility] by Test strip 2019-10-25 14:07:00* Test Item Value Reference Range Interpretation Comments Urine Specific Santo (test code = 5811-5) 1.025 1.010-1.02 5 [facility] pH measurement by automated test fturc3626-88-12 14:07:00* Test Item Value Reference Range Interpretation Comments Urine pH (test code = 54667-8) 5 5-7 [facility] leukocyte esterase detection by vawzggko3733-91-35 14:07:00* Test Item Value Reference Range Interpretation Comments Urine Leukocyte Esterase (test code = 5799-2) SMALL NEGATIVE [facility] nitrite iudvgpuzl0125-16-52 14:07:00* Test Item Value Reference Range Interpretation Comments Urine Nitrite (test code = 99770-0) NEGATIVE NEGATIVE [facility] protein measurement by test strip (mass/volume)2019-10-25 14:07:00* Test Item Value Reference Range Interpretation Comments Urine Protein (test code = 5804-0) TRACE NEGATIVE [facility] glucose pbykyuvyo4696-06-59 14:07:00* Test Item Value Reference Range Interpretation Comments Urine Glucose (UA) (test code = 2349-9) NEGATIVE NEGATIVE [facility] ketones detection by automated test zxgpa7354-18-37 14:07:00* Test Item Value Reference Range Interpretation Comments Urine Ketones (test code = 27306-4) NEGATIVE NEGATIVE [facility] urobilinogen measurement by test strip (mass/volume)2019-10-25 14:07:00* Test Item Value Reference Range Interpretation Comments Urine Urobilinogen (test code = 69003-2) 0.2 0.2-1 [facility] total bilirubin measurement (mass/volume)2019-10-25 14:07:00* Test Item Value Reference Range Interpretation Comments Urine Bilirubin (test code = 1978-6) SMALL NEGATIVE [facility] erythrocytes amddgvbrd0037-57-94 14:07:00* Test Item Value Reference Range Interpretation Comments Urine Blood (test code = 60017-3) TRACE NEGATIVE [facility] CenterAutomated urine sediment leukocyte count by microscopy (number/high power field)2019-10-25 14:07:00* Test Item Value Reference Range Interpretation Comments Urine WBC (test code = 5821-4) 6-10 0-5 [facility] CenterErythrocytes detection in urine sediment by light ldgijrwscp6631-59-12 14:07:00* Test Item Value Reference Range Interpretation Comments Urine RBC (test code = 20320-6) 0-5 0-5 [facility] CenterBacteria detection in urine sediment by light yovtakipaf0367-48-64 14:07:00* Test Item Value Reference Range Interpretation Comments Urine Bacteria (test code = 36941-5) MODERATE NONE [facility] CenterEpithelial cells detection in urine sediment by light rpzmdneigh1153-53-31 14:07:00* Test Item Value Reference Range Interpretation Comments Urine Epithelial Cells (test code = 18636-5) RARE NONE [facility] CenterTransitional cells detection in urine sediment by light wtagwjlggr2223-94-15 14:07:00* Test Item Value Reference Range Interpretation Comments Urine Transitional Epithelial Cells (test code = 8249-5) FEW NONE [facility] CenterAmorphous sediment detection in urine sediment by light cbwxkelkwo1616-44-18 14:07:00* Test Item Value Reference Range Interpretation Comments Urine Amorphous Sediment (test code = 8246-1) MODERATE FEW [facility] Center[facility] color ecugjdyxjvpkf5007-54-04 14:07:00* Test Item Value Reference Range Interpretation Comments Urine Color (test code = 5778-6) YELLOW YELLOW [facility] CenterU[facility] hwehtro1846-15-61 14:07:00* Test Item Value Reference Range Interpretation Comments Urine Clarity (test code = 01241-8) SL CLOUDY CLEAR [facility] gravity of Urine by Test strip 2019-10-25 14:07:00* Test Item Value Reference Range Interpretation Comments Urine Specific Santo (test code = 5811-5) 1.025 1.010-1.02 5 [facility] pH measurement by automated test nfmxj5028-86-35 14:07:00* Test Item Value Reference Range Interpretation Comments Urine pH (test code = 85098-2) 5 5-7 [facility] Center[facility] leukocyte esterase detection by dkuxzuep3614-04-55 14:07:00* Test Item Value Reference Range Interpretation Comments Urine Leukocyte Esterase (test code = 5799-2) SMALL NEGATIVE [facility] Center[facility] nitrite octmhwzeq3223-31-01 14:07:00* Test Item Value Reference Range Interpretation Comments Urine Nitrite (test code = 85533-1) NEGATIVE NEGATIVE [facility] Center[facility] protein measurement by test strip (mass/volume)2019-10-25 14:07:00* Test Item Value Reference Range Interpretation Comments Urine Protein (test code = 5804-0) TRACE NEGATIVE [facility] CenterU[facility] glucose hsqqpxmeu1586-82-04 14:07:00* Test Item Value Reference Range Interpretation Comments Urine Glucose (UA) (test code = 2349-9) NEGATIVE NEGATIVE [facility] Center[facility] ketones detection by automated test hyvcg7659-58-08 14:07:00* Test Item Value Reference Range Interpretation Comments Urine Ketones (test code = 53394-0) NEGATIVE NEGATIVE [facility] CenterU[facility] urobilinogen measurement by test strip (mass/volume)2019-10-25 14:07:00* Test Item Value Reference Range Interpretation Comments Urine Urobilinogen (test code = 79015-0) 0.2 0.2-1 [facility] total bilirubin measurement (mass/volume)2019-10-25 14:07:00* Test Item Value Reference Range Interpretation Comments Urine Bilirubin (test code = 1978-6) SMALL NEGATIVE [facility] CenterU[facility] erythrocytes aoimpenqo6075-36-68 14:07:00* Test Item Value Reference Range Interpretation Comments Urine Blood (test code = 04252-6) TRACE NEGATIVE [facility] CenterAutomated urine sediment leukocyte count by microscopy (number/high power field)2019-10-25 14:07:00* Test Item Value Reference Range Interpretation Comments Urine WBC (test code = 5821-4) 6-10 0-5 [facility] CenterErythrocytes detection in urine sediment by light roqnxfttcq0524-98-50 14:07:00* Test Item Value Reference Range Interpretation Comments Urine RBC (test code = 48689-5) 0-5 0-5 [facility] CenterBacteria detection in urine sediment by light oshfgikzjn4150-20-91 14:07:00* Test Item Value Reference Range Interpretation Comments Urine Bacteria (test code = 68273-6) MODERATE NONE [facility] CenterEpithelial cells detection in urine sediment by light mzlgabpuke3862-97-73 14:07:00* Test Item Value Reference Range Interpretation Comments Urine Epithelial Cells (test code = 06474-7) RARE NONE [facility] CenterTransitional cells detection in urine sediment by light thuixkqwbz2125-42-62 14:07:00* Test Item Value Reference Range Interpretation Comments Urine Transitional Epithelial Cells (test code = 8249-5) FEW NONE [facility] CenterAmorphous sediment detection in urine sediment by light ixphyrgouk4239-52-79 14:07:00* Test Item Value Reference Range Interpretation Comments Urine Amorphous Sediment (test code = 8246-1) MODERATE FEW [facility] CenterCCP Anitbodies IgG & TcG0988-21-63 22:06:00* Test Item Value Reference Range Interpretation Comments CCP Antibodies IgG/IgA (test code = 93217-9) 9 0- 19 uni ts Negative <20 Weak positive 20 - 39 Moderate positive 40 - 59 Strong positive >59 AMBER (test code = AMBER) Performed at: [address] [place] [id number] Director: Enid Villatoro MD, Phone: [phone] [facility] HospitalHemoglobin Q3Y8834-26-30 21:51:00* Test Item Value Reference Range Interpretation Comments Hemoglobin A1c (test code = 4548-4) 13.5 % 4.3-6.1 H Estimated Average Glucose (test code = 29026809) 341 mg/dL 70-11 0 H Lab Interpretation (test code = 40869-6) Abnormal [facility] HospitalBNP [B-Type Natriuretic Peptide]2019-01-05 17:18:00* Test Item Value Reference Range Interpretation Comments B Natriuretic Peptide (BNP) (test code = 85712528) 47 pg/mL <=1 00 Lab Interpretation (test code = 05834-2) Normal [facility] HospitalSED Ltqo1199-42-48 17:03:00* Test Item Value Reference Range Interpretation Comments Sed Rate (test code = 59624417) 57 0-<30 mm/Hr H Lab Interpretation (test code = 74362-3) Abnormal [facility] HospitalHIV-1/HIV-2 Routine Cjdthgycg8056-28-36 16:40:00* Test Item Value Reference Range Interpretation Comments HIV Ag/Ab Combo (test code = 35234-1) Negative Negative Lab Interpretation (test code = 54092-3) Normal [facility] HospitalCBC/Lzcz0910-80-07 16:11:00* Test Item Value Reference Range Interpretation Comments WBC (test code = 6690-2) 9.1 K/uL 4.5-11 RBC (test code = 789-8) 4.68 4.20- 5.40 M/uL Hemoglobin (test code = 718-7) 13.6 g/dL 12-16 Hematocrit (test code = 4544-3) 43.1 % 37-47 MCV (test code = 787-2) 92.1 fL 82-92 H MCH (test code = 785-6) 29.1 pg 27-32 MCHC (test code = 786-4) 31.6 g/dL 32-36 L RDW (test code = 15888-6) 43.0 fL 36.4-46.3 Platelet (test code = 777-3) 251 K/uL 150-400 Mean Platelet Volume (test code = 21816-5) 12.2 fL 9.4-12.4 Percent NRBC (test code = 14588703) 0.0 % Neutrophil (test code = 770-8) 66.6 % 34-70 Lymphs (test code = 736-9) 26.0 % 20-50 Monocytes (test code = 5905-5) 6.4 % 5-12 Eos (test code = 713-8) 0.0 % 0.7-5 L Basos (test code = 706-2) 0.7 % 0.1-1.2 Immature Granulocytes (test code = 31592561) 0.3 % 0-0.5 Neutrophils (Absolute) (test code = 99027825) 6.04 K/uL 1.56-6.1 3 Lymphs (Absolute) (test code = 57501034) 2.36 K/uL 1.18-3.74 Monocytes(Absolute) (test code = 85951515) 0.58 K/uL 0.24-0.36 H Eos (Absolute) (test code = 00064555) 0.00 K/uL 0.04-0.36 L Baso (Absolute) (test code = 38805620) 0.06 K/uL 0.01-0.08 Immature Grans (Abs) (test code = 79699787) 0.03 K/uL 0-0.03 Absolute NRBC (test code = 36540503) 0.00 K/uL Lab Interpretation (test code = 04962-4) Abnormal [facility] HospitalVitamin C997213-16-96 15:43:00* Test Item Value Reference Range Interpretation Comments Vitamin B12 (test code = 93982138) 427 pg/mL See comment Normal: 180-914 pg/mLIntermittent: 145-180 pg/mLDeficient: <=145.0 pg/mL [facility] HospitalTSH [Thyroid Stimulating Hormone]2019-01-05 15:32:00* Test Item Value Reference Range Interpretation Comments TSH (test code = 23968955) 2.34 0.57- 3.74 uIU/mL If , please see the following reference ranges (not verified by lab): 1st Trimester: 0.05 -3.70 uIU/mL2nd Trimester: 0.31 -4.35 uIU/mL3rd Trimester: 0.41 - 5.18 uIU/mL Lab Interpretation (test code = 57585-0) Normal [facility] HospitalLipid Aeqmhgu5338-23-27 15:26:00* Test Item Value Reference Range Interpretation Comments Cholesterol (test code = 2093-3) 144.0 mg/dL <=200.0 Triglyceride (test code = 32115337) 132 mg/dL <150 HDL (test code = 2085-9) 51.0 mg/dL See Reference Range Narrative . LDL (test code = 95865-7) 67 mg/dL <100 Op timal: < 100.0 mg/dLNear Optimal: 120-129 mg/dLBorderline: 130-159 mg/dLHigh: 160-189 mg/dLVery High: >=190 mg/dL Patient Fasting? (test code = 46748471) Yes [facility] HospitalRa Furcff1068-19-75 15:26:00* Test Item Value Reference Range Interpretation Comments RA (test code = 56972721) <10 <14 IU/mL Lab Interpretation (test code = 56288-2) [facility] Iclyz2242-52-43 15:26:00* Test Item Value Reference Range Interpretation Comments Sodium (test code = 2951-2) 135 mmol/L 136-145 L Potassium (test code = 2823-3) 4.7 mmol/L 3.5-5.1 Chloride (test code = 2075-0) 94 mmol/L 98-107 L CO2 (test code = 74360649) 29 mmol/L 21-31 Glucose (test code = 48058033) 367 mg/dL 70-110 H Calcium (test code = 51492679) 9.9 mg/dL 8.6-10.3 Urea Nitrogen (test code = 77973681) 15.0 mg/dL 7-25 Creatinine (test code = 41449984) 0.8 mg/dL 0.6-1.2 Alkaline Phosphatase (test code = 14312890) 76 U/L 34-104 ALT (test code = 17973731) 24 U/L 7-52 AST (test code = 23346923) 15 U/L 13-39 Total Protein (test code = 2885-2) 7.3 g/dL 6-8.3 GFR, Estimated (test code = 80574811) 71 >=90 mL/min/1.73 m2 L Albumin (test code = 85152-5) 4.4 g/dL 3.7-5.3 Anion Gap (test code = 57722370) 12 mmol/L 5-16 Lab Interpretation (test code = 29699-5) Abnormal [facility] HospitalMicroalbumin / Creatinine Urine Qfvza9861-66-70 14:30:00* Test Item Value Reference Range Interpretation Comments Microalbumin, Random (test code = 55356716) 4.4 mg/dL <30.0 Creatinine, Urine (test code = 49535981) 23 mg/dL 20-320 Urine Microalbumin (test code = 82975329) 191.3 mg/g 0-30 H Lab Interpretation (test code = 51557-3) Abnormal [facility]
[2019-11-04 09:14] LABS: ALBUMIN 3.4 g/dL (3.5-5.0); ALBUMIN/GLOBULIN RATIO 0.8 (0.8-2.0); ANION GAP 16.8 mmol/L (8-16); CALCIUM 9.4 mg/dL (8.4-10.2); CREATININE, SERUM 1.75 mg/dL (0.57-1.11); POTASSIUM 3.8 mmol/L (3.5-5.1)
[2019-11-04 09:15] LABS: BACTERIA,URINE RARE /HPF; EPITHELIAL CELLS,URINE FEW /LPF; RBC,URINE 0-5 /HPF (0-5); WBC,URINE (MAN) 0-5 /HPF (0-5)
--- NOTE | 2019-11-04 09:47 | Emergency Department Note ---
History of Present Illnes History of Present Illness Chief Complaint: Back Pain History of Present Illness This is a 69 year old female THIS AM BEGAN HAVING TIGHT INTERMITTENT LEFT FLANK PAIN. NON RADIATING. DENIES ANY N/V. PAIN LESSENED WITH HEATING PAD. PATIENT HAS LIDODERM PATCH ON PATIENT SEEN HERE FOR SAME ISSUE OCTOBER 24, ADMITTED FOR HYPONATREMIA AND ACUTE RENAL FAILURE. 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: TYLENOL 6AM Ink Printer Required: No Onset (how long ago): week(s) (3) Location: left lower back Quality: pain Radiation: Reports non-radiation Severity: moderate Onset quality: gradual Duration (how long): week(s) (worse this am) Timing of current episode: constant Progression: worsening Chronicity: recurrent Context: Reports recent illness (recent admit) Relieving factors: other (Lidoderm patches) Exacerbating factors: none Associated symptoms: Reports denies other symptoms Treatments prior to arrival: none Past Medical/Family History Physician Review I have reviewed the patient's past medical and family history. Any updates have been documented here. Past Medical History Recent Fever: No Clinical Suspicion of Infectio: No New/Unexplained Change in Ment: No Past Medical History: Hypertension, Diabetes, Hyperlipedemia Past Surgical History: None Social History Smoking Cessation: Never Smoker Counseling Performed: No Alcohol Use: Social Any Illegal Drug Use: No Other Any Pre-Existing Lines (PICC,: No Review of Systems Review of Systems Constitutional: Reports no symptoms EENTM: Reports no symptoms Cardiovascular: Reports no symptoms Respiratory: Reports no symptoms Gastrointestinal: Reports no symptoms Genitourinary: Reports no symptoms Musculoskeletal: Reports as per HPI, Reports back pain Integumentary: Reports no symptoms Neurological: Reports no symptoms Psychological: Reports no symptoms Endocrine: Reports no symptoms Hematological/Lymphatic: Reports no symptoms Physical Exam Related Data Allergies: Coded Allergies: No Known Allergies (Unverified , 10/25/19) Triage Vital Signs Vital Signs Date Time Temp Pulse Resp B/P (MAP) Pulse Ox O2 Delivery O2 Flow Rate FiO2 11/04/19 08:31 98.0 100 18 183/88 100 Room Air Vital signs reviewed: Yes Physical Exam CONSTITUTIONAL Constitutional: Present well-developed, Present well-nourished HENT HENT: Present normocephalic, Present atraumatic, Present oropharynx clear/moist, Present nose normal HENT L/R: Present left ext ear normal, Present right ext ear normal EYES Eyes: Reports PERRL, Reports conjunctivae normal NECK Neck: Present ROM normal PULMONARY Pulmonary: Present effort normal, Present breath sounds normal CARDIOVASCULAR Cardiovascular: Present regular rhythm, Present heart sounds normal, Present capillary refill normal, Present normal rate GASTROINTESTINAL Abdominal: Present soft, Present nontender, Present bowel sounds normal GENITOURINARY Genitourinary: Present exam deferred SKIN Skin: Present warm, Present dry MUSCULOSKELETAL Musculoskeletal: Present ROM normal, Present other (MILD TENDERNESS LEFT PARASPINAL MUSCLES WITH SPASM) NEUROLOGICAL Neurological: Present alert, Present oriented x 3, Present no gross motor or sensory deficits PSYCHOLOGICAL Psychological: Present mood/affect normal, Present judgement normal Results Laboratory Result Diagram: 11/04/19 0841 11/04/19 0841 Laboratory Laboratory Tests Test 11/04/19 08:41 White Blood Count 9.83 x10e3/uL (4.8-10.8) Red Blood Count 3.76 x10e6/uL (3.6-5.1) Hemoglobin 10.6 g/dL (12.0-16.0) Hematocrit 33.4 % (34.2-44.1) Mean Corpuscular Volume 88.8 fL (81-99) Mean Corpuscular Hemoglobin 28.2 pg (28-32) Mean Corpuscular Hemoglobin Concent 31.7 g/dL (31-35) Red Cell Distribution Width 12.9 % (11.7-14.4) Platelet Count 445 x10e3/uL (140-360) Neutrophils (%) (Auto) 69.1 % (38.7-80.0) Lymphocytes (%) (Auto) 20.5 % (18.0-39.1) Monocytes (%) (Auto) 8.9 % (4.4-11.3) Eosinophils (%) (Auto) 0.1 % (0.0-6.0) Basophils (%) (Auto) 0.7 % (0.0-1.0) Neutrophils # (Auto) 6.8 (2.1-6.9) Lymphocytes # (Auto) 2.0 (1.0-3.2) Monocytes # (Auto) 0.9 (0.2-0.8) Eosinophils # (Auto) 0.0 (0.0-0.4) Basophils # (Auto) 0.1 (0.0-0.1) Absolute Immature Granulocyte (auto 0.07 x10e3/uL (0-0.1) Urine Color Yellow (YELLOW) Urine Clarity Clear (CLEAR) Urine pH 5 (5 - 7) Urine Specific [place] <=1.005 (1.010-1.025) Urine Protein Negative (NEGATIVE) Urine Glucose (UA) 2+ (NEGATIVE) Urine Ketones Negative (NEGATIVE) Urine Blood Negative (NEGATIVE) Urine Nitrite Negative (NEGATIVE) Urine Bilirubin Negative (NEGATIVE) Urine Urobilinogen 0.2 mg/dL (0.2 - 1) Urine Leukocyte Esterase Negative (NEGATIVE) Urine RBC 0-5 /HPF (0-5) Urine WBC 0-5 /HPF (0-5) Urine Epithelial Cells Few /LPF (NONE) Urine Bacteria Rare /HPF (NONE) Urine Random Sodium 38 mmol/L Sodium Level 134 mmol/L (136-145) Potassium Level 3.8 mmol/L (3.5-5.1) Chloride Level 99 mmol/L (98-107) Carbon Dioxide Level 22 mmol/L (22-29) Anion Gap 16.8 mmol/L (8-16) Blood Urea Nitrogen 26 mg/dL (7-26) Creatinine 1.75 mg/dL (0.57-1.11) Estimat Glomerular Filtration Rate 29 ML/MIN (60-) BUN/Creatinine Ratio 15 (6-25) Glucose Level 376 mg/dL (74-118) Serum Osmolality 288 mOsm/kg (278-305) Calcium Level 9.4 mg/dL (8.4-10.2) Total Bilirubin 0.3 mg/dL (0.2-1.2) Aspartate Amino Transf (AST/SGOT) 12 IU/L (5-34) Alanine Aminotransferase (ALT/SGPT) 21 IU/L (0-55) Alkaline Phosphatase 80 IU/L (40-150) Total Protein 7.7 g/dL (6.5-8.1) Albumin 3.4 g/dL (3.5-5.0) Globulin 4.3 g/dL (2.3-3.5) Albumin/Globulin Ratio 0.8 (0.8-2.0) Lab results reviewed: Yes Assessment & Plan Medical Decision Making MDM PT RECENTLY ADMITTED WHEN SHE CAME WITH SAME SX'S OF LEFT LOWER BACK PAIN, HAD ACUTE RENAL FAILURE AND HYPONATREMIA - WILL RECHECK BLOOD WORK AND UA - R/O HYPONATREMIA, WORSENING RENAL INSUFF, UTI, HEMATURIA, ELECTROLYTE ABNL Reassessment Reassessment LABS IMPROVED SINCE SHE WAS IN HOSPITAL. DC HOME, CONTINUE LIDODERM, WILL GIVE TYL #3 (#15), F/U PCP Assessment & Plan Final Impression: (1) Back pain Depart Disposition: HOME, SELF-CARE Last Vital Signs Date Time Temp Pulse Resp B/P (MAP) Pulse Ox O2 Delivery O2 Flow Rate FiO2 11/04/19 09:15 83 18 183/86 100 Room Air 11/04/19 08:31 98.0 Home Meds Active Scripts Glipizide (GLIPIZIDE) 5 Mg Tablet, 5 MG PO DAILY for 14 Days, #14 TAB 0 Refills Prov:KAYLA SAENZ TURRET LATHE TENDER 10/29/19 [Lidocaine Patch] 1 EA PATCH No Conflict Check, 1 EA TP DAILY for 14 Days, #14 PATCH 0 Refills Prov:KAYLA SAENZ NP 10/29/19 Discontinued Reported Medications Hydrochlorothiazide (HYDROCHLOROTHIAZIDE) 25 Mg Tablet, 25 MG PO DAILY, #30 TAB 10/25/19 Lisinopril (PRINIVIL) 20 Mg Tablet, 20 MG PO DAILY, #30 TAB 10/25/19 Metformin Hcl (METFORMIN HCL) 500 Mg Tablet, 500 MG PO BID, #60 TAB 10/25/19 Glyburide (GLYBURIDE) 5 Mg Tablet, 10 MG PO BID, #30 TAB 10/25/19 Pioglitazone Hcl* (ACTOS*) 15 Mg Tablet, 15 MG PO DAILY, #30 TAB 10/25/19 Medications in the ED Acetaminophen/ Hydrocodone Bitart 1 ea NOW ONCE PO Last administered on 11/04/19at 09:04; Admin Dose 1 EA; Start 11/04/19 at 09:00; Stop 11/04/19 at 09:01; Status DC KOSTAS FLETCHER MD Nov 04, 2019 09:47
[2019-11-07 05:24] LABS: OSMOLALITY,SERUM OSMOMETER 301 mOsmol/kg (280-301)
== END 2019-11-04 11:24 | disposition home or self-care (01) ==
LOC: ER 08:31
DX: M54.5 Low back pain (principal); I10 Essential (primary) hypertension; E11.9 Type 2 diabetes mellitus without complications; E78.5 Hyperlipidemia, unspecified
CPT/HCPCS: 36415; 80053; 81001; 82947; 83930; 83935; 84295; 84300; 84520; 85025; 87086; 99284

== ENCOUNTER 2019-11-13 11:13 | Emergency (ER) | payer MEDICARE, OTHER ==
[~2019-11-13] VITALS: Ht 167.6 cm; Wt 81.2 kg
--- NOTE | 2019-11-13 11:38 | Emergency Department Note ---
History of Present Illnes History of Present Illness Chief Complaint: Diabetic Crisis History of Present Illness This is a 69 year old female Chief Complaint Comment Patient in from home with reports of high blood sugar of over 500. Patient reports that her "normal" blood sugars stay around 360 to 380. Patient does admit to infrequently checking her blood sugars prior to recent hospitalization here. Patient does not offer any other complaints at this time. 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 Any updates have been documented here. Past Medical History Recent Fever: No Clinical Suspicion of Infectio: No New/Unexplained Change in Ment: No Past Medical History: Hypertension, Diabetes, Hyperlipedemia Past Surgical History: None Review of Systems Review of Systems Constitutional: Reports no symptoms, Reports other (Fatigue) EENTM: Reports no symptoms Cardiovascular: Reports no symptoms Respiratory: Reports no symptoms Gastrointestinal: Reports no symptoms Genitourinary: Reports no symptoms Musculoskeletal: Reports no symptoms Integumentary: Reports no symptoms Neurological: Reports no symptoms Psychological: Reports no symptoms Endocrine: Reports no symptoms Hematological/Lymphatic: Reports no symptoms Physical Exam Related Data Allergies: Coded Allergies: No Known Allergies (Unverified , 10/25/19) Triage Vital Signs Vital Signs Date Time Temp Pulse Resp B/P (MAP) Pulse Ox O2 Delivery O2 Flow Rate FiO2 11/13/19 11:18 97.9 137 19 171/110 100 Room Air Vital signs reviewed: Yes Physical Exam CONSTITUTIONAL Constitutional: Present well-developed, Present well-nourished HENT HENT: Present normocephalic, Present atraumatic, Present oropharynx clear/moist, Present nose normal HENT L/R: Present left ext ear normal, Present right ext ear normal EYES Eyes: Reports PERRL, Reports conjunctivae normal NECK Neck: Present ROM normal PULMONARY Pulmonary: Present effort normal, Present breath sounds normal CARDIOVASCULAR Cardiovascular: Present regular rhythm, Present heart sounds normal, Present capillary refill normal, Present tachycardia GASTROINTESTINAL Abdominal: Present soft, Present nontender, Present bowel sounds normal GENITOURINARY Genitourinary: Present exam deferred SKIN Skin: Present warm, Present dry MUSCULOSKELETAL Musculoskeletal: Present ROM normal NEUROLOGICAL Neurological: Present alert, Present oriented x 3, Present no gross motor or sensory deficits PSYCHOLOGICAL Psychological: Present mood/affect normal, Present judgement normal Results Laboratory Lab results reviewed: Yes Imaging Imaging results reviewed: Yes Diagnostics Tests Diagnostic test(s) reviewed: Yes Procedures 12 Lead ECG Interpretation ECG Interpretation : Radio Repairer Domestic: Interpreted by ED physician Date: Nov 13, 2019 Rhythm: sinus rhythm Rate: normal BPM: 124 QRS axis: normal ST segments normal: Yes T waves normal: Yes Clinical Impression: non-specific ECG Assessment & Plan Medical Decision Making MDM 69-year-old female presenting for hyperglycemia. She states that she usually lives in the 300s sugar and checked her blood sugar reading was 9400s. She endorses some fatigue but otherwise denies any other symptoms. She has been trying to watch what she eats and is only on glipizide. She states she can't take metformin as per her kidney doctor. Initial differential includes DKA versus HHS versus cardiac etiology. Workup shows an gap of 20 without acidosis. Blood sugar is in the 400s. She is given 2 L of crystalloid and 5 units of insulin. Repeat metabolic panel shows improvement. I discussed results with patient that she will need follow-up with her primary care provider for further management of her diabetes. At this time I doubt emergent process patient is appropriate for discharge. Reassessment Reassessment time: 13:55 Reassessment Well appearing, NAD Assessment & Plan Final Impression: (1) Hyperglycemia Depart Disposition: HOME, SELF-CARE Last Vital Signs Date Time Temp Pulse Resp B/P (MAP) Pulse Ox O2 Delivery O2 Flow Rate FiO2 11/13/19 11:18 97.9 137 19 171/110 100 Room Air Home Meds Active Scripts Glipizide (GLIPIZIDE) 5 Mg Tablet, 5 MG PO DAILY for 14 Days, #14 TAB 0 Refills Prov:KAYLA SAENZ NP 10/29/19 [Lidocaine Patch] 1 EA PATCH No Conflict Check, 1 EA TP DAILY for 14 Days, #14 PATCH 0 Refills Prov:KAYLA SAENZ NP 10/29/19 LAZARO CHEN MD Nov 13, 2019 11:38
[2019-11-13 11:53] LABS: BASOPHILS # (AUTO) 0.1 (0.0-0.1); BASOPHILS % 0.7 % (0.0-1.0); EOSINOPHILS # (AUTO) 0.7 (0.0-0.4); EOSINOPHILS % 7.2 % (0.0-6.0); HEMATOCRIT 40.8 % (34.2-44.1); HEMOGLOBIN 12.8 g/dL (12.0-16.0); LYMPHOCYTES # (AUTO) 2.4 (1.0-3.2); MEAN CORPUSCULAR HEMOGLOBIN 28.1 pg (28-32); MEAN CORPUSCULAR HGB CONC 31.4 g/dL (31-35); MEAN CORPUSCULAR VOLUME 89.5 fL (81-99); MONOCYTES # (AUTO) 0.7 (0.2-0.8); MONOCYTES % 6.7 % (4.4-11.3); NEUTROPHILS # (AUTO) 5.8 (2.1-6.9); NEUTROPHILS % 60.1 % (38.7-80.0); PLATELET COUNT 359 x10e3/uL (140-360); RED BLOOD COUNT 4.56 x10e6/uL (3.6-5.1); RED CELL DISTRIBUTION WIDTH 13.3 % (11.7-14.4)
[2019-11-13 12:05] LABS: ALBUMIN 4.2 g/dL (3.5-5.0); ALBUMIN/GLOBULIN RATIO 0.9 (0.8-2.0); ANION GAP 20.8 mmol/L (8-16); CALCIUM 10.4 mg/dL (8.4-10.2); CREATININE, SERUM 1.6 mg/dL (0.57-1.11); POTASSIUM 3.8 mmol/L (3.5-5.1)
--- OUTSIDE RECORDS SUMMARY | 2019-11-13 12:27 | XMS REPORT | Clinical Summary ---
Author Author [facility] Organization [facility] Address Unknown Phone Unavailable Care Team Providers Care Photogrammetry Airplane Pilot Name Role Phone Iveth Proctor PCP Allergies [...] weekly (once 7 strips per day on Wed,Th) to test blood sugar. Active lancets 28 gauge Use 2 times 100 Each 5 weekly as 7 directed. Active atorvastatin (LIPITOR) 10 Take 1 tablet 90 tablet 1 mg tabletIndications: by mouth at 0 Mixed hyperlipidemia bedtime nightly For cholesterol. Active venlafaxine (EFFEXOR XR) Take 1 90 capsule 1 0 37.5 mg extended release capsule by 0 capsuleIndications: mouth daily. Anxiety Active glipiZIDE (GLUCOTROL) 5 Take 1 tablet 90 tablet 1 mg tabletIndications: by mouth 0 Type 2 diabetes mellitus daily. with complication, without long-term current use of insulin Active amLODIPine (NORVASC) 5 mg Take 1 tablet 90 tablet 1 tabletIndications: by mouth 0 Essential hypertension daily. Active blood glucose meter Use as 1 Kit 0 (PRECISION XTRA directed.. 0 GLUCOMETER)Indications: Type 2 diabetes mellitus with complication, without long-term current use of insulin Active blood glucose (PRECISION Use 2 times 50 Each 3 0 XTRA TEST STRIPS) test weekly (once 0 stripsIndications: Type 2 per day on diabetes mellitus with Mon,) to complication, without test blood long-term current use of sugar. insulin Active lancets 28 Use 2 times 100 Each 1 gaugeIndications: Type 2 weekly as 0 diabetes mellitus with directed. complication, without long-term current use of insulin Active Miscellaneous Medical by 1 Each 0 08/0 Supply MiscIndications: Misc.(Non-Grey 0 Essential hypertension g; Combo Route) route BP machine. 07/26/2019 Discontinued (Alternate ther apy) ibuprofen (MOTRIN) [...] lisinopril (PRINIVIL, Take 2 60 tablet 0 10/0 ZESTRIL) 10 mg tablets by 9 tabletIndications: [...] For long-term current use of diabetes.. insulin 11/08/2019 Discontinued (Therapy comple drake) pioglitazone (ACTOS) 15 Take 1 tablet 90 tablet 1 mg tabletIndications: by mouth 0 Type 2 diabetes mellitus daily. with complication, without long-term current use of insulin 11/08/2019 Discontinued (Therapy comple drake) glyBURIDE-metFORMIN Take 2 360 tablet 1 (GLUCOVANCE) 5-500 mg per tablets by 0 tabletIndications: Type 2 mouth 2 times diabetes mellitus with daily (with complication, without meals) For long-term current use of diabetes.. insulin 11/08/2019 Discontinued (Therapy comple drake) lisinopriL-hydrochlorothi Take 1 tablet 90 tablet 1 azide (ZESTORETIC) 20-25 by mouth 0 mg per tabletIndications: daily. Essential hypertension 11/08/2019 Discontinued (Therapy comple drake) ibuprofen (MOTRIN) 600 mg Take 1 tablet 30 tablet 0 tabletIndications: Pain by mouth 0 in joint, multiple sites every 8 hours as needed for Pain. Active Problems Problem Noted Date Hyponatremia 04/18/2018 Inadequately controlled diabetes mellitus 01/12/2017 Pain in joints 12/15/2016 Essential hypertension 06/06/2015 BMI 35.0-35.9,adult 05/11/2014 Hypertension 09/26/2013 Diabetes mellitus 09/22/2013 HLD (hyperlipidemia) 09/22/2013 Anxiety state, unspecified 09/14/2007 Depression 09/14/2007 Hx of abnormal mammogram Vitamin D insufficiency Encounters Care Team Description Date Type Specialty Nikki Awad RN 11/13/2019 Nurse Triage Iveth Proctor DO Type 2 diabetes mellitus with complicati on, without long-term current use of insulin (Primary Dx); Essential hypertension; Hospital discharge follow-up; Preventative health care; Chronic kidney disease, unspecified CKD stage 11/08/2019 Telephonic Family Practice Encounter Iveth Proctor DO Type 2 diabetes mellitus with complicati on, without long-term current use of insulin 11/08/2019 Orders Only Family Practice Iveth Proctor DO Anxiety 08/03/2019 Refill Family [...] Anxiety; Abnormal eye finding 01/05/2019 Orders Only Family Practice Vibha Mary RN Type 2 diabetes mellitus with complicati on, without long- term current use of insulin; Essential hypertension; Mixed hyperlipidemia 12/26/2018 Refill Family Practice after 11/12/2018 Immunizations Name Administration Dates Next Due Influenza [...] history available. Date Recorded COVID-19 Exposure Response 11/13/2019 10:11 AM CDT In the last month, have [...] Treatment Care Team Description Date Type Specialty Devante Henry MD [address] [place] [address] [phone] 1st Attempt @ 12:05pm 11/13/19 # [id number] 11/15/2019 Telephonic Family Practice Encounter Health Maintenance Due Date Last Done Comments Colorectal Cancer Scrn 01/12/2018 01/12/2017 Annual (FIT/FOBT) Age 50 to 75 Breast Cancer Scrn 08/25/2019 08/24/2018, (Yearly) 01/12/2017, 08/03/2014, Additional history exists DM Foot Exam (Yearly) 08/25/2019 08/24/2018, 12/15/2016, 09/26/2013 DM HGBA1C (Yearly) 01/06/2020 01/05/2019, 01/12/2017, 12/08/2016, Additional history exists DM Retinal Exam (Yearly) 01/06/2020 01/05/2019, 01/12/2017 DM Microalbumin Urine 11/07/2020 11/08/2019, Scrn (Yearly) 01/05/2019, 12/08/2016, Additional history exists IMM Pneumococcal Age 66 Completed 12/14/2013 and Up Goals Goal Patient Associated Recent Progress Patient-Stat Aut hor Goal Type Problems ed? Reduce occurrences of sadness Lifestyle Yes Celine, or anxiety Ammon Nunez LOWER BLOOD GLUCOSE [...] without long-term current use of insulin after 11/12/2018 Results * CBC/Diff (01/05/2019 9:56 AM CDT) [...] (H) 0.24 - 0.36 K/uL [facility] Eos (Absolute) 0.00 (L) 0.04 - 0.36 K/uL [facility] Baso (Absolute) 0.06 0.01 - 0.08 K/uL [facility] Immature Grans 0.03 0.00 - 0.03 K/uL [facility] (Abs) [facility] Absolute NRBC 0.00 K/uL [facility] Specimen Blood Performing Organization Address City/State/Zipcode Ph one Number [facility] [address] [place] [address] * HIV-1/HIV-2 Routine Screening (01/05/2019 9:56 AM CDT) HIV Ag/Ab Combo Negative Negative [facility] Specimen Blood Performing Organization Address [facility] one Number [facility] [address] [place] [address] * Microalbumin / Creatinine Urine Ratio (01/05/2019 9:56 AM CDT) Pathologist [facility] Microalbumin, 4.4 <30.0 mg/dL [facility] Random [facility] Creatinine, 23 20 - 320 mg/dL [facility] Urine [facility] Urine 191.3 (H) 0.0 - 30.0 mg/g [facility] Microalbumin [facility] Specimen Urine - Voided, urine Performing Organization Address [facility] one Number [facility] [address] [place] [address] [phone] * Hemoglobin A1C (01/05/2019 9:56 AM CDT) Pathologist [facility] Hemoglobin A1c 13.5 (H) 4.3 - 6.1 % [facility] Estimated 341 (H) 70 - 110 mg/dL [facility] Average Glucose LAB[facility] Specimen Blood Performing Organization Address [facility] one Number [facility] [address] [place] [address] [phone] * Comprehensive Metabolic Panel (01/05/2019 9:56 AM [...] [facility] Specimen Blood Performing Organization Address [facility] one Number [facility] [address] [place], [place] [id number] [phone] * CCP Anitbodies IgG & IgA (01/05/2019 9:56 AM CDT) CCP Antibodies 9 0 - 19 units BT [facility] IgG/IgA Comment: Negative <20 Weak positive 20 - 39 Moderate positive 40 - 59 Strong positive >59 Specimen Blood Narrative Performed At Performed at: 01 - [facility] [address] [place] [address] 7773 Help Desk Supervisor: Enid Villatoro MD, Phone : [phone] Performing Organization Address [facility] one Number [facility] [address] [place] [address] * BNP [B-Type Natriuretic Peptide] (01/05/2019 9:56 AM CDT) B Natriuretic 47 <=100 pg/mL [facility] Peptide (BNP) [facility] Specimen Blood Performing Organization Address [facility] one Number [facility] [address] [place] [address] [phone] * TSH [Thyroid Stimulating Hormone] (01/05/2019 9:56 AM CDT) TSH 2.34 0.57 - 3.74 uIU/mL [facility] Comment: [facility] If , please see the following reference ranges (not verified by lab): 1st Trimester: 0.05 -3.70 uIU/mL 2nd Trimester: 0.31 -4.35 uIU/mL 3rd Trimester: 0.41 - 5.18 uIU/mL Specimen Blood Performing Organization Address [facility] one Number [facility] [address] [place] [address] [phone] * Vitamin B12 (01/05/2019 9:56 AM CDT) Vitamin B12 427 See comment pg/mL [facility] Comment: [facility] Normal: 180-914 pg/mL Intermittent: 145-180 pg/mL Deficient: <=145.0 pg/mL Specimen Blood Performing Organization Address [facility] one Number [facility] [address] [place] [address] [phone] * SED Rate (01/05/2019 9:56 AM CDT) Sed Rate 57 (H) 0-<30 mm/Hr [facility] Specimen Blood Performing Organization Address [facility] one Number [facility] [address] [place] [address] * Ra Factor (01/05/2019 9:56 AM CDT) RA <10 <14 IU/mL [facility] Specimen Blood Performing Organization Address [facility] one Number [facility] [address] [place], [place] [id number] * Lipid Profile (01/05/2019 9:56 AM CDT) Cholesterol 144.0 <=200.0 mg/dL [facility] Triglyceride 132 <150 mg/dL [facility] HDL 51.0 See Reference Range [facility] Narrative. mg/dL LAB[facility]ORY LDL 67 <100 mg/dL [facility] Comment: [facility] Optimal: < 100.0 mg/dL Near Optimal: 120-129 mg/dL Borderline: 130-159 mg/dL High: 160-189 mg/dL Very High: >=190 mg/dL Patient Yes [facility] Fasting? LABORATORY Specimen Blood Performing Organization Address [facility] one Number [facility] [address] [place] [address] [phone] * OPHTHALMOLOGY RETINAL SCAN (01/05/2019 9:40 AM CDT) RETINAL ALERT (A) [facility] SCAN-FINAL RESULT Right Diabetic None [facility] Retinopathy Right Macular None [facility] Edema Right Other Suspected Cataract (A) [facility] Suspected Conditions Right Image Gradeable Image [facility] Quality Left Diabetic None [facility] Retinopathy Left Macular None [facility] Edema Left Other Suspected Cataract (A) [facility] Suspected Conditions Left Image Gradeable Image [facility] Quality Specimen Narrative Performed At Retinal Study Result for BERNARDO SHERIDAN [facility] BERNARDO SHERIDAN a 68 y/o, F (: , ) presented to [facility] on 01-05-2019 for a retinal imaging study of the left and r ight eyes. Based on the findings of the study, the following is recommended for BERNARDO SHERIDAN Other Suspected Condition Found: Refer to [facility], next available appointment. For Follow-up at [facility]: The patient can be scheduled into any [facility] that has an ope n booking by calling the appointment center. Interpreting Provider's Comments: No comments provided Right Eye Findings: Negative for Diabetic Retinopathy. Other: Suspected Cataract Left Eye Findings: Negative for Diabetic Retinopathy. Other: Suspected Cataract This result was electronically signed Pete Lopez MD, , Taxonomy: [id number] on 01-05-2019 04:1 1:31 [facility] time. NOTE: Any pathology noted on this david betic retinal evaluation should be confirmed by an appropriate ophthalmic examination. Performing Organization Address City/State/Zipcode Ph one Number [facility] after 11/12/2018 Insurance Type Payer Benefit Subscriber ID Effective Phone Address Plan / Dates Group [facility] SELF-PAY SELF-PAY xxxxxx 2018- [phone] [id number] [place] [address]
--- OUTSIDE RECORDS SUMMARY | 2019-11-13 12:28 | XMS REPORT | Continuity of Care Document ---
Author Author [facility] t Organization [facility] Address [address] [place] [address] Phone Unavailable Care Team Providers Care Application Support Administrator Name Role Phone NONSTAFF PCP Unavailable Delmi RN, Camilla Jordan Attphys Unavailable Hitesh Iveth Attphys EDIS JOEL Attphys Unavailable Gi Mary RN Attphys Unavailable EDIS JOEL Admmerediths Unavailable Payers Payer Name Policy Type Policy Number Effective Date Expiration Date S morteza [facility] [id number] [id number] [place] [address] xxxxxx 2018 00:00:00 2028 2 3:59:59 [facility] Medicare A & B [id number] [facility] Review Covid19 [id number] [facility] Problems Condition Name Condition Details Condition Category Status Onset Date Resolution Date Last Treatment Date Treating Clinician Comments Source Hyponatremia Hyponatremia Disease Active 2018-04-18 00:00:00 [facility] Inadequately controlled diabetes mellitus Inadequately controlled diabetes mellitus Disease Active 2017-01-12 00:00:00 [facility] Pain in joints Pain in joints Disease Active 2016-12-15 00:00:00 [facility] Essential hypertension Essential hypertension Disease Active 2015-06-06 00:00:00 [facility] BMI 35.0-35.9,adult BMI 35.0-35.9,adult Disease Active 2014-05-11 00:00 :00 [facility] Hypertension Hypertension Disease Active 2013-09-26 00:00:00 [facility] Diabetes mellitus Diabetes mellitus Disease Active 2013-09-22 00:00:00 [facility] HLD (hyperlipidemia) HLD (hyperlipidemia) Disease Active 00:00:00 [facility] Anxiety state, unspecified Anxiety state, unspecified Disease Active 2007-09-14 00:00:00 [facility] Depression Depression Disease Active 2007-09-14 00:00:00 [facility] Acute renal failure Problem Active [facility] Back pain Problem Active [facility] Hx of abnormal mammogram Hx of abnormal mammogram Disease Active [facility] Vitamin D insufficiency Vitamin D insufficiency Disease Active [facility] Allergies, Adverse Reactions, Alerts This patient has no known allergies or adverse reactions. Family History Family Member Diagnosis Comments Start Date Stop Date Source Natural mother Cancer [facility] Natural sister Cancer [facility] Social History Social Habit Start Date Stop Date Quantity Comments Source Alcohol Comment OCCASSIONAL /MONTHLY [facility] Sex Assigned At [facility] Exposure to SARS-CoV-2 (event) Not sure [facility] Alcohol intake 2019-11-08 00:00:00 2019-11-08 00:00:00 Current drinker of alcohol (finding) [facility] History SDOH Food Worry 2016-12-15 00:00:00 2016-12-15 00:00:00 [facility] SDOH Food Scarcity 2016-12-15 00:00:00 2016-12-15 00:00:00 1 [facility] Smoking Status Start Date Stop Date Source Never smoker [facility] Medications Ordered Medication Name Filled Medication Name Start Date Stop Da te Current Medication? Ordering Clinician Indication Dosage Frequency Signature (SIG) Comments Components Source glipiZIDE (GLUCOTROL) 5 mg tablet 2019-11-08 00:00:00 Yes Type 2 diabetes mellitus with complication, without long-term current use of insulin 5mg QD Take 1 tablet by mouth daily. [facility] amLODIPine (NORVASC) 5 mg tablet 2019-11-08 00:00:00 Yes Essential hypertension 5mg QD Take 1 tablet by mouth daily. [facility] blood glucose meter (PRECISION XTRA GLUCOMETER) 2019-11-08 0 0:00:00 Yes Type 2 diabetes mellitus with complication, without long-term current use of insulin Use as directed.. [facility] blood glucose (PRECISION XTRA TEST STRIPS) test strips 2019-11-08 00:00:00 Yes Type 2 diabetes mellitus wit h complication, without long-term current use of insulin Use 2 times weekly ( once per day on Wed,) to test blood sugar. [facility] lancets 28 gauge 2019-11-08 00:00:00 Yes Type 2 diabetes mellitus with complication, without long-term current use of insulin Use 2 times weekly as directed. [facility] Miscellaneous Medical Supply Misc 2019-11-08 00:00:00 Yes Essential hypertension by Misc.(Non-Drug; Combo Route) route BP mach ine. [facility] Glipizide Glipizide 2019-10-29 17:52:00 Yes 5 Daily [facility] Lidocaine Patch Lidocaine Patch 2019-10-29 17:52:00 Yes 1 Daily [facility] venlafaxine (EFFEXOR XR) 37.5 mg extended release capsule 2019-08-03 00:00:00 Yes Anxiety 37.5mg QD Take 1 capsule by mouth daily. [facility] atorvastatin (LIPITOR) 10 mg tablet 2019-07-26 00:00:00 Yes Mixed hyperlipidemia 10mg Take 1 tablet by paul at bedtime nightly For cholesterol. [facility] pioglitazone (ACTOS) 15 mg tablet 2019-07-26 00:00:00 2019 00:00:00 No Type 2 diabetes mellitus with complicati on, without long-term current use of insulin 15mg QD Take 1 tablet by mouth daily. [facility] glyBURIDE-metFORMIN (GLUCOVANCE) 5-500 mg per tablet 2019-07-26 00:00:00 2019-11-08 00:00:00 No Type 2 diabetes cristopher itus with complication, without long-term current use of insulin 2{tbl} Take 2 tablets by mouth 2 times daily (with meals) For diabetes.. [facility] lisinopriL-hydrochlorothiazide (ZESTORETIC) 20-25 mg per tab let 2019-07-26 00:00:00 2019-11-08 00:00:00 No Essential hypertension 1{tbl} QD Take 1 tablet by mouth daily. [facility] ibuprofen (MOTRIN) 600 mg tablet 2019-07-26 00:00:00 2019-11 00:00:00 No Pain in joint, multiple sites 600mg Take 1 tab let by mouth every 8 hours as needed for Pain. [facility] lisinopriL-hydrochlorothiazide (ZESTORETIC) 20-25 mg per tab let 2019-06-22 00:00:00 2019-07-26 00:00:00 No Essential hypertension 1{tbl} QD Take 1 tablet by mouth daily. [facility] glyBURIDE-metFORMIN (GLUCOVANCE) 5-500 mg per tablet 2019-06-22 00:00:00 2019-07-26 00:00:00 No Type 2 diabetes cristopher itus with complication, without long-term current use of insulin 2{tbl} Take 2 tablets by mouth 2 times daily (with meals) For diabetes.. [facility] venlafaxine (EFFEXOR XR) 37.5 mg extended release capsule 2019-01-05 00:00:00 2019-08-03 00:00:00 No Anxiety 37.5mg QD Take 1 capsule by mo ut daily. [facility] pioglitazone (ACTOS) 15 mg tablet 2019-01-05 00:00:00 2019 00:00:00 No Type 2 diabetes mellitus with complicati on, without long-term current use of insulin 15mg QD Take 1 tablet by mouth daily. [facility] atorvastatin (LIPITOR) 10 mg tablet 2019-01-05 00:00:0 0 2019-07-26 00:00:00 No Mixed hyperlipidemia 10mg Take 1 tablet by mouth at bedtime nightly For cholesterol. [facility] naproxen (NAPROSYN) 500 mg tablet 2019-01-05 00:00:00 2019 00:00:00 No Pain in joint, multiple sites 500mg Ta ke 1 tablet by mouth 2 times daily (with meals). [facility] glyBURIDE-metFORMIN (GLUCOVANCE) 5-500 mg per tablet 2019-01-05 00:00:00 2019-06-22 00:00:00 No Type 2 diabetes cristopher itus with complication, without long-term current use of insulin 2{tbl} Take 2 tablets by mouth 2 times daily (with meals) For diabetes.. [facility] lisinopril-hydrochlorothiazide (ZESTORETIC) 20-25 mg per tab let 2019-01-05 00:00:00 2019-06-22 00:00:00 No Essential hypertension 1{tbl} QD Take 1 tablet by mouth daily. [facility] lisinopril (PRINIVIL, ZESTRIL) 40 mg tablet 2018 00:00:00 2019-01-05 00:00:00 No Essential hypertension 40mg QD Ta ke 1 tablet by mouth daily For hypertension.. [facility] tropicamide (MYDRIACYL) 0.5 % ophthalmic solution 2019-01-05 00:00:00 2019-01-05 23:59:00 No Type 2 diabetes cristopher itus with complication, without long-term current use of insulin 1[drp] Instill 1 Drop in each eye once as needed for up to 1 dose (for poor retina scan image). [facility] citalopram (CELEXA) 20 mg tablet 2019-01-05 00:00:00 2019-01 00:00:00 No Mixed hyperlipidemia 20mg QD Take 1 tablet by mo uth daily For depression/anxiety. [facility] pioglitazone (ACTOS) 15 mg tablet 2019-01-04 00:00:00 2018 00:00:00 No Type 2 diabetes mellitus with complicati on, without long-term current use of insulin 15mg QD Take 1 tablet by mouth daily Needs appointment with PCP. [facility] glyBURIDE-metFORMIN (GLUCOVANCE) 5-500 mg per tablet 2019-01-04 00:00:00 2019-01-05 00:00:00 No Type 2 diabetes cristopher itus with complication, without long-term current use of insulin 2{tbl} Take 2 tablets by mouth 2 times daily (with meals) For diabetes. Needs appointment with PCP. [facility] lisinopril (PRINIVIL, ZESTRIL) 10 mg tablet 2018 00:00:00 2019-01-05 00:00:00 No Essential hypertension 20mg QD Ta ke 2 tablets by mouth daily For hypertension.. [facility] atorvastatin (LIPITOR) 10 mg tablet 2019-01-04 00:00:0 0 2019-01-05 00:00:00 No Mixed hyperlipidemia 10mg Take 1 tablet by mouth at bedtime nightly For cholesterol. [facility] glyBURIDE-metFORMIN (GLUCOVANCE) 5-500 mg per tablet 2018-09-08 00:00:00 2019-01-04 00:00:00 No Type 2 diabetes cristopher itus with complication, without long-term current use of insulin 2{tbl} Take 2 tablets by mouth 2 times daily (with meals) For diabetes. [facility] pioglitazone (ACTOS) 15 mg tablet 2018-09-08 00:00:00 2018 00:00:00 No Type 2 diabetes mellitus with complicati on, without long-term current use of insulin 15mg QD Take 1 tablet by mouth daily For diabetes. [facility] tropicamide (MYDRIACYL) 0.5 % ophthalmic solution 2018-08-24 00:00:00 2019-02-20 23:59:00 No Type 2 diabetes cristopher itus without complication, without long-term current use of insulin 1[drp] Instill 1 Drop in each eye once as needed for up to 1 dose (for poor retina scan image). [facility] lisinopril (PRINIVIL, ZESTRIL) 10 mg tablet 2018 00:00:00 2019-01-04 00:00:00 No Essential hypertension 20mg QD Ta ke 2 tablets by mouth daily For hypertension.. [facility] naproxen (NAPROSYN) 500 mg tablet 2018-05-30 00:00:00 2018 00:00:00 No Muscle pain 500mg Take 1 tablet by mouth 2 times daily ( with meals). [facility] citalopram (CELEXA) 20 mg tablet 2018-02-09 00:00:00 2019-01 00:00:00 No Mixed hyperlipidemia 20mg QD Take 1 tablet by mo ut daily For depression/anxiety. [facility] atorvastatin (LIPITOR) 10 mg tablet 2018-02-09 00:00:0 0 2019-01-04 00:00:00 No Mixed hyperlipidemia 10mg Take 1 tablet by mouth at bedtime nightly For cholesterol. [facility] blood glucose meter 2017-01-12 00:00:00 Yes Use as directed.. [facility] blood glucose (PRECISION XTRA TEST STRIPS) test strips 2017-01-12 00:00:00 Yes Use 2 times weekly (once per day on Wed,) to test blood sugar. [facility] lancets 28 gauge 2017-01-12 00:00:00 Yes Use 2 times weekly as directed. [facility] ibuprofen (MOTRIN) 800 mg tablet 2016-12-15 00:00:00 2019-07 00:00:00 No 800mg Take 1 tablet by paul th every 8 hours as needed for Pain For joint pains as needed. Take with food. [facility] conjugated estrogens (PREMARIN) 0.625 mg/gram vaginal cream 2014-12-21 00:00:00 Yes Menopausal vaginal dryness .5g QD Insert 0.5 g vaginally daily. [facility] Glyburide Glyburide 2019-10-29 00:00:00 No 10 Twice A Day [facility] Hydrochlorothiazide Hydrochlorothiazide 2019-10-29 00:00:00 No 25 Daily [facility] Lisinopril (Prinivil) 20 Mg TABLET Lisinopril (Prinivil) 20 Mg T ABLET 2019-10-29 00:00:00 No 20 Daily [facility] Metformin Hcl Metformin Hcl 2019-10-29 00:00:00 No 500 Twice A Day [facility] Pioglitazone Hcl (Actos*) 15 Mg TABLET Pioglitazone Hcl (Actos*) 15 Mg TABLET 2019-10-29 00:00:00 No 15 Daily [facility] Immunizations Ordered Immunization Name Filled Immunization Name Date Status Comments Source Pneumoccoccal 2013-12-14 00:00:00 Completed [facility] Vital Signs Vital Name Observation Time Observation Value Comments Source Weight 2019-11-04 08:31:00 179 [lb_av] [facility] BMI (Body Mass Index) 2019-11-04 08:31:00 28.9 kg/m2 [facility] Body Temperature 2019-10-29 16:31:00 99.4 [degF] [facility] BMI (Body Mass Index) 2019-10-29 00:10:00 28.9 kg/m2 [facility] Body Temperature 2019-10-27 11:23:00 98.0 [degF] [facility] BMI (Body Mass Index) 2019-10-27 00:22:00 28.9 kg/m2 [facility] Weight 2019-10-25 13:53:00 179 [lb_av] [facility] Systolic blood pressure 2019-01-05 08:23:00 177 mm[Hg] [facility] Diastolic blood pressure 2019-01-05 08:23:00 93 mm[Hg] [facility] Heart rate 2019-01-05 08:23:00 88 /min [facility] Body temperature 2019-01-05 08:23:00 36.89 Soumya [facility] Respiratory rate 2019-01-05 08:23:00 18 /min [facility] Body height 2019-01-05 08:23:00 165.1 cm [facility] Body weight 2019-01-05 08:23:00 97.977 kg [facility] BMI 2019-01-05 08:23:00 35.94 kg/m2 [facility] Oxygen saturation in Arterial blood by Pulse oximetry 2018-04 08:23:00 95 /min [facility] Procedures Procedure Date / Time Performed Performing Clinician [facility] e Ultrasound, renal 2019-10-26 00:00:[address] [facility] [address] of abdomen and pelvis without contrast 2019-10-25 00:00:00 [facility] HEMOGLOBIN A1C 2019-01-05 09:56:00 Iveth Proctor [facility] COMPREHENSIVE METABOLIC PANEL 2019-01-05 09:56:00 Hitesh [facility] CBC/DIFF 2019-01-05 09:56:00 Iveth Proctor [facility] LIPID PROFILE 2019-01-05 09:56:00 Iveth Proctor [facility] MICROALBUMIN / CREATININE URINE RATIO 2019-01-05 09:56:00 Hitesh [facility] THYROID STIMULATING HORMONE (TSH) 2019-01-05 09:56:00 Hitesh Amalia hidalgo [facility] HIV AG/AB COMBO ROUTINE SCREENING 2019-01-05 09:56:00 Hitesh [facility] gwen [facility] B-TYPE NATRIURETIC PEPTIDE (BNP) 2019-01-05 09:56:00 Hitesh [facility] CBC 2019-01-05 09:56:00 Iveth Proctor [facility] CCP IGG ABS 2019-01-05 09:56:00 [facility] FA[facility] 2019-01-05 09:56:00 [facility] SED RATE 2019-01-05 09:56:00 Iveth Proctor [facility] VITAMIN B12 2019-01-05 09:56:00 Iveth Proctor OPHTHALMOLOGY RETINAL SCAN 2019-01-05 09:40:08 Iveth Proctor [facility] Plan of Care Planned Activity Planned Date Details Comments Source Future Scheduled Test 2020-11-07 00:00:00 Urine screening fo r protein (procedure) [code = 684563014] [facility] Scheduled Test 2020-01-06 00:00:00 Hemoglobin A1c dexter surement (procedure) [code = 95297776] [facility] Scheduled Test 2020-01-06 00:00:00 DM Retinal Exam (Y early) [code = DM Retinal Exam (Yearly)] [facility] Scheduled Test 2019-08-25 00:00:00 Breast Cancer Scrn (Yearly) [code = Breast Cancer Scrn (Yearly)] [facility] Scheduled Test 2019-08-25 00:00:00 DM Foot Exam (Year ly) [code = DM Foot Exam (Yearly)] [facility] Scheduled Test 2018-01-12 00:00:00 Screening for eyal gnant neoplasm of colon (procedure) [code = 081891421] [facility] Instructions Back Pain [facility] Encounters Start Date/Time End Date/Time Encounter Type Admission Type [facility] Care Department Encounter ID Source 2019-11-04 08:31:00 2019-11-04 11:24:00 Departed Emergency Room [facility] [id number] [facility] 2019-10-26 10:51:00 2019-10-29 19:11:00 Discharged Inpatient 1 EDIS JOEL [facility] [id number] [facility] 2019-03-10 00:00:00 2019-03-10 00:00:00 Outpatient [facility] [id number] [facility] 2019-02-23 00:00:00 2019-02-23 00:00:00 Outpatient [facility] [id number] [facility] 2019-02-13 00:00:00 2019-02-13 00:00:00 Outpatient [facility] [id number] [facility] 2019-01-17 00:00:00 2019-01-17 00:00:00 Outpatient [facility] [id number] [facility] 2019-01-06 00:00:00 2019-01-06 00:00:00 Outpatient [facility] [id number] [facility] 2019-01-05 09:40:39 2019-01-05 09:40:39 Outpatient [facility] [id number] [facility] 2019-01-05 09:30:02 2019-01-05 09:30:02 Outpatient [facility] [id number] [facility] 2019-01-05 08:23:12 2019-01-05 08:23:12 Outpatient [facility] [id number] [facility] 2019-01-05 00:00:00 2019-01-05 00:00:00 Outpatient [facility] [id number] [facility] 2018-12-14 00:00:00 2018-12-14 00:00:00 Outpatient [facility] [id number] [facility] 2018-11-21 00:00:00 2018-11-21 00:00:00 Outpatient [facility] [id number] [facility] 2018-11-21 00:00:00 2018-11-21 00:00:00 Outpatient [facility] [id number] [facility] 2018-10-19 00:00:00 2018-10-19 00:00:00 Outpatient [facility] [id number] [facility] 2018-10-19 00:00:00 2018-10-19 00:00:00 Outpatient [facility] [id number] [facility] 2018-10-19 00:00:00 2018-10-19 00:00:00 Outpatient [facility] [id number] [facility] 2018-09-21 00:00:00 2018-09-21 00:00:00 Outpatient [facility] [id number] [facility] 2018-09-21 00:00:00 2018-09-21 00:00:00 Outpatient [facility] [id number] [facility] 2018-08-24 14:57:45 2018-08-24 14:57:45 Outpatient [facility] [id number] [facility] 2018-08-24 14:41:12 2018-08-24 14:41:12 Outpatient [facility] [id number] [facility] 2018-08-24 14:37:31 2018-08-24 14:37:31 Outpatient [facility] [id number] [facility] 2018-08-24 13:40:11 2018-08-24 13:40:11 Outpatient [facility] [id number] [facility] 2018-06-23 00:00:00 2018-06-23 00:00:00 Outpatient [facility] [id number] [facility] 2018-05-19 00:00:00 2018-05-19 00:00:00 Outpatient [facility] [id number] [facility] 2018-04-15 12:24:00 2018-04-15 12:24:00 Outpatient [facility] [id number] [facility] 2018-02-15 00:00:00 2018-02-15 00:00:00 Outpatient [facility] [id number] [facility] 2018-02-08 00:00:00 2018-02-08 00:00:00 Outpatient [facility] [id number] [facility] 2018-01-21 00:00:00 2018-01-21 00:00:00 Outpatient [facility] [id number] [facility] 2017-07-22 14:10:20 2017-07-22 14:10:20 Outpatient [facility] [id number] [facility] 2017-07-22 00:00:00 2017-07-22 00:00:00 Outpatient [facility] [id number] [facility] 2017-07-12 00:00:00 2017-07-12 00:00:00 Outpatient [facility] [id number] [facility] 2017-05-17 00:00:00 2017-05-17 00:00:00 Outpatient [facility] [id number] [facility] 2017-02-23 00:00:00 2017-02-23 00:00:00 Outpatient [facility] [id number] [facility] 2017-02-15 00:00:00 2017-02-15 00:00:00 Outpatient [facility] [id number] [facility] 2017-02-09 00:00:00 2017-02-09 00:00:00 Outpatient [facility] [id number] [facility] 2017-01-27 00:00:00 2017-01-27 00:00:00 Outpatient [facility] [id number] [facility] 2017-01-19 00:00:00 2017-01-19 00:00:00 Outpatient [facility] [id number] [facility] 2017-01-12 13:17:03 2017-01-12 13:17:03 Outpatient [facility] [id number] [facility] 2017-01-12 10:54:01 2017-01-12 10:54:01 Outpatient [facility] [id number] [facility] 2017-01-12 08:54:08 2017-01-12 08:54:08 Outpatient [facility] [id number] [facility] 2017-01-12 08:44:20 2017-01-12 08:44:20 Outpatient [facility] [id number] [facility] 2017-01-11 00:00:00 2017-01-11 00:00:00 Outpatient [facility] [id number] [facility] 2016-12-15 10:22:38 2016-12-15 10:22:38 Outpatient [facility] [id number] [facility] 2016-12-08 09:52:46 2016-12-08 09:52:46 Outpatient [facility] [id number] [facility] 2016-11-30 00:00:00 2016-11-30 00:00:00 Outpatient [facility] [id number] [facility] 2016-11-23 00:00:00 2016-11-23 00:00:00 Outpatient [facility] [id number] [facility] 2016-10-19 00:00:00 2016-10-19 00:00:00 Outpatient [facility] [id number] [facility] Results Test Description Test Time Test Comments Results Result Comments Source Blood leukocytes automated count (number/volume) 2019-11-04 08:41:00 Test Item White Blood Count (test code = 6690-2) 9.83 4.8-10.8 [facility] count (number/volume)2019-11-04 08:41:00* Test Item Value Reference Range Interpretation Comments Red Blood Count (test code = 789-8) 3.76 3.6-5.1 [facility] hemoglobin [facility] (moles/volume)2019-11-04 08:41:00* Test Item Value Reference Range Interpretation Comments Hemoglobin (test code = 91969-3) 10.6 12.0-16.0 [facility] blood hematocrit (volume fraction)2019-11-04 08:41:00* Test Item Value Reference Range Interpretation Comments Hematocrit (test code = 4544-3) 33.4 34.2-44.1 [facility]Autom[facility] erythrocyte mean corpuscular rmpwju7082-07-35 08:41:00* Test Item Value Reference Range Interpretation Comments Mean Corpuscular Volume (test code = 787-2) 88.8 81-99 [facility]Autom[facility] mean corpuscular hemoglobin (mass per erythrocyte)2019-11-04 08:41:00* Test Item Value Reference Range Interpretation Comments Mean Corpuscular Hemoglobin (test code = 785-6) 28.2 28-32 [facility] mean corpuscular hemoglobin concentration measurement (mass/volume)2019-11-04 08:41:00* Test Item Value Reference Range Interpretation Comments Mean Corpuscular Hemoglobin Concent (test code = 786-4) 31.7 31-35 [facility] HendersonRDW QpzUj-Hpb5322-80-01 08:41:00* Test Item Value Reference Range Interpretation Comments Red Cell Distribution Width (test code = 12425-9) 12.9 11.7 -14.4 [facility]Autom[facility] platelet count (count/volume)2019-11-04 08:41:00* Test Item Value Reference Range Interpretation Comments Platelet Count (test code = 777-3) 445 140-360 [facility]Autom[facility] blood segmented neutrophil count as percentage of total darisbojci2185-02-63 08:41:00* Test Item Value Reference Range Interpretation Comments Neutrophils (%) (Auto) (test code = 47970-8) 69.1 38.7-80.0 [facility]Autom[facility] blood lymphocyte count as percentage ot total gppjfpgopk3752-91-08 08:41:00* Test Item Value Reference Range Interpretation Comments Lymphocytes (%) (Auto) (test code = 736-9) 20.5 18.0-39.1 [facility]Autom[facility] blood monocyte count as percentage of total kyvunupvqt3354-59-64 08:41:00* Test Item Value Reference Range Interpretation Comments Monocytes (%) (Auto) (test code = 5905-5) 8.9 4.4-11.3 [facility]Autom[facility] blood eosinophil count as percentage of total xptcjenrqo3742-99-19 08:41:00* Test Item Value Reference Range Interpretation Comments Eosinophils (%) (Auto) (test code = 713-8) 0.1 0.0-6.0 [facility]Autom[facility] blood basophil count as percentage of total wnwxxqisqi1411-04-99 08:41:00* Test Item Value Reference Range Interpretation Comments Basophils (%) (Auto) (test code = 706-2) 0.7 0.0-1.0 [facility] HendersonFluoroscopic procedure less than one hour jtzvxnzn8832-38-16 08:41:00* Test Item Value Reference Range Interpretation Comments IM GRANULOCYTES % (test code = IM GRANULOCYTES %) 0.7 0.0- 1.0 [facility]Autom[facility] blood neutrophil count 2019-11-04 08:41:00* Test Item Value Reference Range Interpretation Comments Neutrophils # (Auto) (test code = 751-8) 6.8 2.1-6.9 [facility] lymphocytes count (number/volume) 2019-11-04 08:41:00* Test Item Value Reference Range Interpretation Comments Lymphocytes # (Auto) (test code = 37157-1) 2.0 1.0-3.2 [facility] HendersonBlood monocytes automated count (number/volume)2019-11-04 08:41:00* Test Item Value Reference Range Interpretation Comments Monocytes # (Auto) (test code = 742-7) 0.9 0.2-0.8 [facility]Autom[facility] blood eosinophil count 2019-11-04 08:41:00* Test Item Value Reference Range Interpretation Comments Eosinophils # (Auto) (test code = 711-2) 0.0 0.0-0.4 [facility]Autom[facility] blood basophil count (count/volume)2019-11-04 08:41:00* Test Item Value Reference Range Interpretation Comments Basophils # (Auto) (test code = 704-7) 0.1 0.0-0.1 [facility]Fluor[facility] procedure less than one hour yjarneqq6852-16-99 08:41:00* Test Item Value Reference Range Interpretation Comments Absolute Immature Granulocyte (auto (ирина t code = Absolute Immature Granulocyte (auto) 0.07 0-0.1 [facility] Henderson[facility] color zxdhzwdfzhusd8652-34-37 08:41:00* Test Item Value Reference Range Interpretation Comments Urine Color (test code = 5778-6) YELLOW YELLOW [facility] jilxzgt8819-00-63 08:41:00* Test Item Value Reference Range Interpretation Comments Urine Clarity (test code = 03015-0) CLEAR CLEAR [facility] by Test strip 2019-11-04 08:41:00* Test Item Value Reference Range Interpretation Comments Urine Specific [place] (test code = 5811-5) <=1.005 1.010-1.02 5 [facility] pH [facility] by automated test lhvef8731-45-32 08:41:00* Test Item Value Reference Range Interpretation Comments Urine pH (test code = 56063-5) 5 5-7 [facility] leukocyte esterase detection by mpckhcxo2545-97-68 08:41:00* Test Item Value Reference Range Interpretation Comments Urine Leukocyte Esterase (test code = 5799-2) NEGATIVE NEGATIVE [facility] nitrite gojqdpjnh4389-62-10 08:41:00* Test Item Value Reference Range Interpretation Comments Urine Nitrite (test code = 30604-9) NEGATIVE NEGATIVE [facility] protein measurement by test strip (mass/volume)2019-11-04 08:41:00* Test Item Value Reference Range Interpretation Comments Urine Protein (test code = 5804-0) NEGATIVE NEGATIVE [facility] Henderson[facility] glucose okfdsumqr1946-38-57 08:41:00* Test Item Value Reference Range Interpretation Comments Urine Glucose (UA) (test code = 2349-9) 2+ NEGATIVE [facility] ketones detection by automated test jvarz7418-04-97 08:41:00* Test Item Value Reference Range Interpretation Comments Urine Ketones (test code = 34696-9) NEGATIVE NEGATIVE [facility] urobilinogen measurement by test strip (mass/volume)2019-11-04 08:41:00* Test Item Value Reference Range Interpretation Comments Urine Urobilinogen (test code = 09969-3) 0.2 0.2-1 [facility] total bilirubin measurement (mass/volume)2019-11-04 08:41:00* Test Item Value Reference Range Interpretation Comments Urine Bilirubin (test code = 1978-6) NEGATIVE NEGATIVE [facility] erythrocytes vmnfntnds3263-24-84 08:41:00* Test Item Value Reference Range Interpretation Comments Urine Blood (test code = 84255-5) NEGATIVE NEGATIVE [facility]Autom[facility] urine sediment leukocyte count by microscopy (number/high power field)2019-11-04 08:41:00* Test Item Value Reference Range Interpretation Comments Urine WBC (test code = 5821-4) 0-5 0-5 [facility] HendersonErythrocytes detection in urine sediment by light weibrvpulz0398-92-56 08:41:00* Test Item Value Reference Range Interpretation Comments Urine RBC (test code = 95900-2) 0-5 0-5 [facility] HendersonBacteria detection in urine sediment by light tellbbzlau9792-61-85 08:41:00* Test Item Value Reference Range Interpretation Comments Urine Bacteria (test code = 23978-4) RARE NONE [facility] HendersonEpithelial cells detection in urine sediment by light rdsejeyzkb9076-21-19 08:41:00* Test Item Value Reference Range Interpretation Comments Urine Epithelial Cells (test code = 70531-0) FEW NONE [facility] sodium measurement (moles/volume) 2019-11-04 08:41:00* Test Item Value Reference Range Interpretation Comments Urine Random Sodium (test code = 2955-3) 38 [facility]ererum or plasma sodium measurement (moles/volume)2019-11-04 08:41:00* Test Item Value Reference Range Interpretation Comments Sodium Level (test code = 2951-2) 134 136-145 [facility]ererum or plasma potassium measurement (moles/volume)2019-11-04 08:41:00* Test Item Value Reference Range Interpretation Comments Potassium Level (test code = 2823-3) 3.8 3.5-5.1 [facility]ererum or plasma chloride measurement (moles/volume)2019-11-04 08:41:00* Test Item Value Reference Range Interpretation Comments Chloride Level (test code = 2075-0) 99 98-107 [facility]ererum or plasma carbon dioxide, total measurement (moles/volume)2019-11-04 08:41:00* Test Item Value Reference Range Interpretation Comments Carbon Dioxide Level (test code = 2028-9) 22 22-29 [facility]ererum or plasma anion otf1238-75-91 08:41:00* Test Item Value Reference Range Interpretation Comments Anion Gap (test code = 79938-6) 16.8 8-16 [facility]ererum or plasma urea nitrogen measurement (mass/volume)2019-11-04 08:41:00* Test Item Value Reference Range Interpretation Comments Blood Urea Nitrogen (test code = 3094-0) 26 7-26 [facility]ererum or plasma creatinine measurement (mass/volume)2019-11-04 08:41:00* Test Item Value Reference Range Interpretation Comments Creatinine (test code = 2160-0) 1.75 0.57-1.11 [facility]ererum or plasma urea nitrogen/creatinine mass luzew9955-40-71 08:41:00* Test Item Value Reference Range Interpretation Comments BUN/Creatinine Ratio (test code = 3097-3) 15 6-25 [facility] HendersonEstimated glomerular filtration rate (GFR) uouzxajdapmzx2089-50-67 08:41:00* Test Item Value Reference Range Interpretation Comments Estimat Glomerular Filtration Rate (test code = 153457568) 29 >60 Ranges were taken from the National Kidney Disease Education Program and the [facility] [employer] literature.Reference ranges:60 or greater: Ucoigx99-09 ( for 3 consecutive months): Chronic kidney disease 15 or less: Kidney failureUT Health HendersonGlucose pujrpppekdg6464-77-72 08:41:00* Test Item Value Reference Range Interpretation Comments Glucose Level (test code = BNR2159) 376 74-118 [facility]ere[facility] or plasma calcium measurement (mass/volume)2019-11-04 08:41:00* Test Item Value Reference Range Interpretation Comments Calcium Level (test code = 24729-0) 9.4 8.4-10.2 [facility] HendersonOsmolality of Serum or Plasma by wphvyrgrxeh0272-88-78 08:41:00* Test Item Value Reference Range Interpretation Comments Serum Osmolality (test code = 71453-9) 288 278-305 [facility]ererum or plasma total bilirubin measurement (mass/volume)2019-11-04 08:41:00* Test Item Value Reference Range Interpretation Comments Total Bilirubin (test code = 1975-2) 0.3 0.2-1.2 [facility] HendersonFluoroscopic procedure less than one hour itpeapxq5279-82-54 08:41:00* Test Item Value Reference Range Interpretation Comments Aspartate Amino Transf (AST/SGOT) (test code = Aspartate Amino Transf (AST/SGOT)) 12 5-34 [facility]ererum or plasma alanine aminotransferase measurement (enzymatic activity/volume)2019-11-04 08:41:00* Test Item Value Reference Range Interpretation Comments Alanine Aminotransferase (ALT/SGPT) (test code = 1742-6) 21 0-55 [facility]ererum or plasma protein measurement (mass/volume)2019-11-04 08:41:00* Test Item Value Reference Range Interpretation Comments Total Protein (test code = 2885-2) 7.7 6.5-8.1 [facility] or plasma albumin measurement (mass/volume)2019-11-04 08:41:00* Test Item Value Reference Range Interpretation Comments Albumin (test code = 1751-7) 3.4 3.5-5.0 [facility] HendersonPlasma globulin measurement (mass/volume) 2019-11-04 08:41:00* Test Item Value Reference Range Interpretation Comments Globulin (test code = 29235-4) 4.3 2.3-3.5 [facility]ererum or plasma albumin/globulin mass sxpbx3547-33-89 08:41:00* Test Item Value Reference Range Interpretation Comments Albumin/Globulin Ratio (test code = 1759-0) 0.8 0.8-2.0 [facility] or plasma alkaline phosphatase measurement (enzymatic activity/volume)2019-11-04 08:41:00* Test Item Value Reference Range Interpretation Comments Alkaline Phosphatase (test code = 6768-6) 80 40-150 [facility] HendersonCapillary blood glucose measurement by glucometer (mass/volume)2019-10-29 16:03:00* Test Item Value Reference Range Interpretation Comments Bedside Glucose (test code = 49776-0) 312 70-120 Meter ID: [id number] [facility]villeCapillary blood glucose measurement by glucometer (mass/volume)2019-10-29 16:03:00* Test Item Value Reference Range Interpretation Comments Bedside Glucose (test code = 94278-9) 312 70-120 Meter ID: [id number] Memorial HospitalBlood leukocytes automated count (number/volume)2019-10-29 04:35:00* Test Item Value Reference Range Interpretation Comments White Blood Count (test code = 6690-2) 9.27 4.8-10.8 [facility] erythrocytes automated count (number/volume)2019-10-29 04:35:00* Test Item Value Reference Range Interpretation Comments Red Blood Count (test code = 789-8) 3.61 3.6-5.1 [facility]Blood hemoglobin measurement (moles/volume)2019-10-29 04:35:00* Test Item Value Reference Range Interpretation Comments Hemoglobin (test code = 45900-9) 10.2 12.0-16.0 [facility] HendersonAutomated blood hematocrit (volume fraction)2019-10-29 04:35:00* Test Item Value Reference Range Interpretation Comments Hematocrit (test code = 4544-3) 31.8 34.2-44.1 [facility] HendersonAutomated erythrocyte mean corpuscular bvtlnw0045-68-77 04:35:00* Test Item Value Reference Range Interpretation Comments Mean Corpuscular Volume (test code = 787-2) 88.1 81-99 [facility]Autom[facility] erythrocyte mean corpuscular hemoglobin (mass per erythrocyte)2019-10-29 04:35:00* Test Item Value Reference Range Interpretation Comments Mean Corpuscular Hemoglobin (test code = 785-6) 28.3 28-32 [facility]Automated erythrocyte mean corpuscular hemoglobin concentration measurement (mass/volume)2019-10-29 04:35:00* Test Item Value Reference Range Interpretation Comments Mean Corpuscular Hemoglobin Concent (test code = 786-4) 32.1 31-35 [facility] HendersonRDW KwhYu-Eaz0469-02-26 04:35:00* Test Item Value Reference Range Interpretation Comments Red Cell Distribution Width (test code = 73076-6) 13.1 11.7 -14.4 [facility]Autom[facility] blood platelet count (count/volume)2019-10-29 04:35:00* Test Item Value Reference Range Interpretation Comments Platelet Count (test code = 777-3) 383 140-360 [facility]Autom[facility] blood segmented neutrophil count as percentage of total hmujvmxnqj3238-27-09 04:35:00* Test Item Value Reference Range Interpretation Comments Neutrophils (%) (Auto) (test code = 34421-9) 58.7 38.7-80.0 [facility]Autom[facility] blood lymphocyte count as percentage ot total ovgpbkxijr6793-90-19 04:35:00* Test Item Value Reference Range Interpretation Comments Lymphocytes (%) (Auto) (test code = 736-9) 30.2 18.0-39.1 [facility]Autom[facility] blood monocyte count as percentage of total vhupbpjolq3310-12-48 04:35:00* Test Item Value Reference Range Interpretation Comments Monocytes (%) (Auto) (test code = 5905-5) 10.5 4.4-11.3 [facility]Autom[facility] blood eosinophil count as percentage of total mjykbghhvf5193-05-20 04:35:00* Test Item Value Reference Range Interpretation Comments Eosinophils (%) (Auto) (test code = 713-8) 0.0 0.0-6.0 [facility]Automated blood basophil count as percentage of total ioiwjzbkfi1006-00-33 04:35:00* Test Item Value Reference Range Interpretation Comments Basophils (%) (Auto) (test code = 706-2) 0.3 0.0-1.0 [facility] HendersonFluoroscopic procedure less than one hour erwtghqh5273-51-91 04:35:00* Test Item Value Reference Range Interpretation Comments IM GRANULOCYTES % (test code = IM GRANULOCYTES %) 0.3 0.0- 1.0 [facility]Autom[facility] blood neutrophil count 2019-10-29 04:35:00* Test Item Value Reference Range Interpretation Comments Neutrophils # (Auto) (test code = 751-8) 5.4 2.1-6.9 [facility] lymphocytes count (number/volume) 2019-10-29 04:35:00* Test Item Value Reference Range Interpretation Comments Lymphocytes # (Auto) (test code = 19610-0) 2.8 1.0-3.2 [facility] monocytes automated count (number/volume)2019-10-29 04:35:00* Test Item Value Reference Range Interpretation Comments Monocytes # (Auto) (test code = 742-7) 1.0 0.2-0.8 [facility]Autom[facility] blood eosinophil count 2019-10-29 04:35:00* Test Item Value Reference Range Interpretation Comments Eosinophils # (Auto) (test code = 711-2) 0.0 0.0-0.4 [facility]Autom[facility] blood basophil count (count/volume)2019-10-29 04:35:00* Test Item Value Reference Range Interpretation Comments Basophils # (Auto) (test code = 704-7) 0.0 0.0-0.1 [facility] HendersonFluoroscopic procedure less than one hour juwixamn2481-58-40 04:35:00* Test Item Value Reference Range Interpretation Comments Absolute Immature Granulocyte (auto (ирина t code = Absolute Immature Granulocyte (auto) 0.03 0-0.1 [facility]ererum or plasma sodium measurement (moles/volume)2019-10-29 04:35:00* Test Item Value Reference Range Interpretation Comments Sodium Level (test code = 2951-2) 139 136-145 [facility]ere[facility] or plasma potassium measurement (moles/volume)2019-10-29 04:35:00* Test Item Value Reference Range Interpretation Comments Potassium Level (test code = 2823-3) 3.3 3.5-5.1 [facility]ere[facility] or plasma chloride measurement (moles/volume)2019-10-29 04:35:00* Test Item Value Reference Range Interpretation Comments Chloride Level (test code = 2075-0) 93 98-107 [facility]ererum or plasma carbon dioxide, total measurement (moles/volume)2019-10-29 04:35:00* Test Item Value Reference Range Interpretation Comments Carbon Dioxide Level (test code = 2028-9) 33 22-29 [facility]ererum or plasma anion hkl3206-85-65 04:35:00* Test Item Value Reference Range Interpretation Comments Anion Gap (test code = 07168-0) 16.3 8-16 [facility]ererum or plasma urea nitrogen measurement (mass/volume)2019-10-29 04:35:00* Test Item Value Reference Range Interpretation Comments Blood Urea Nitrogen (test code = 3094-0) 25 7-26 [facility]ere[facility] or plasma creatinine measurement (mass/volume)2019-10-29 04:35:00* Test Item Value Reference Range Interpretation Comments Creatinine (test code = 2160-0) 2.43 0.57-1.11 [facility]ererum or plasma urea nitrogen/creatinine mass effqi2414-57-75 04:35:00* Test Item Value Reference Range Interpretation Comments BUN/Creatinine Ratio (test code = 3097-3) 10 6-25 [facility]Estimated glomerular filtration rate (GFR) ximtebuvaidmy2959-36-71 04:35:00* Test Item Value Reference Range Interpretation Comments Estimat Glomerular Filtration Rate (test code = 091526642) 20 >60 Ranges were taken from the National Kidney Disease Education Program and the [facility] [employer] literature.Reference ranges:60 or greater: Ypyaji97-13 ( for 3 consecutive months): Chronic kidney disease 15 or less: Kidney failureUT Health HendersonGlucose tidmwbvqxtk5307-26-83 04:35:00* Test Item Value Reference Range Interpretation Comments Glucose Level (test code = TES8058) 178 74-118 [facility]ere[facility] or plasma calcium measurement (mass/volume)2019-10-29 04:35:00* Test Item Value Reference Range Interpretation Comments Calcium Level (test code = 16367-4) 8.0 8.4-10.2 [facility]ererum or plasma total bilirubin measurement (mass/volume)2019-10-28 04:50:00* Test Item Value Reference Range Interpretation Comments Total Bilirubin (test code = 1975-2) 0.3 0.2-1.2 [facility] HendersonFluoroscopic procedure less than one hour kjnnqifz5679-35-89 04:50:00* Test Item Value Reference Range Interpretation Comments Aspartate Amino Transf (AST/SGOT) (test code = Aspartate Amino Transf (AST/SGOT)) 10 5-34 [facility]ererum or plasma alanine aminotransferase measurement (enzymatic activity/volume)2019-10-28 04:50:00* Test Item Value Reference Range Interpretation Comments Alanine Aminotransferase (ALT/SGPT) (test code = 1742-6) 12 0-55 [facility]ererum or plasma protein measurement (mass/volume)2019-10-28 04:50:00* Test Item Value Reference Range Interpretation Comments Total Protein (test code = 2885-2) 6.1 6.5-8.1 [facility]ererum or plasma albumin measurement (mass/volume)2019-10-28 04:50:00* Test Item Value Reference Range Interpretation Comments Albumin (test code = 1751-7) 2.9 3.5-5.0 [facility] HendersonPlasma globulin measurement (mass/volume) 2019-10-28 04:50:00* Test Item Value Reference Range Interpretation Comments Globulin (test code = 14900-5) 3.2 2.3-3.5 [facility]ererum or plasma albumin/globulin mass jcbbd0857-82-69 04:50:00* Test Item Value Reference Range Interpretation Comments Albumin/Globulin Ratio (test code = 1759-0) 0.9 0.8-2.0 [facility]ererum or plasma alkaline phosphatase measurement (enzymatic activity/volume)2019-10-28 04:50:00* Test Item Value Reference Range Interpretation Comments Alkaline Phosphatase (test code = 6768-6) 53 40-150 [facility]Cap[facility] blood glucose measurement by glucometer (mass/volume)2019-10-27 11:02:00* Test Item Value Reference Range Interpretation Comments Bedside Glucose (test code = 54186-4) 226 70-120 Meter ID: [id number] Health HendersonBlnew ulm medical center leukocytes automated count (number/volume)2019-10-27 05:15:00* Test Item Value Reference Range Interpretation Comments White Blood Count (test code = 6690-2) 9.57 4.8-10.8 [facility] erythrocytes automated count (number/volume)2019-10-27 05:15:00* Test Item Value Reference Range Interpretation Comments Red Blood Count (test code = 789-8) 3.82 3.6-5.1 [facility] ([facility]oles/volume)2019-10-27 05:15:00* Test Item Value Reference Range Interpretation Comments Hemoglobin (test code = 20983-5) 10.8 12.0-16.0 [facility] HendersonAutom[facility] blood hematocrit (volume fraction)2019-10-27 05:15:00* Test Item Value Reference Range Interpretation Comments Hematocrit (test code = 4544-3) 31.6 34.2-44.1 [facility] HendersonAutom[facility] erythrocyte mean corpuscular svcplo6394-44-20 05:15:00* Test Item Value Reference Range Interpretation Comments Mean Corpuscular Volume (test code = 787-2) 82.7 81-99 [facility] HendersonAutom[facility] erythrocyte mean corpuscular hemoglobin (mass per erythrocyte)2019-10-27 05:15:00* Test Item Value Reference Range Interpretation Comments Mean Corpuscular Hemoglobin (test code = 785-6) 28.3 28-32 [facility] HendersonAutom[facility] erythrocyte mean corpuscular hemoglobin concentration measurement (mass/volume)2019-10-27 05:15:00* Test Item Value Reference Range Interpretation Comments Mean Corpuscular Hemoglobin Concent (test code = 786-4) 34.2 31-35 [facility] HendersonRDW BjeSi-Ccb6371-27-24 05:15:00* Test Item Value Reference Range Interpretation Comments Red Cell Distribution Width (test code = 07957-6) 12.0 11.7 -14.4 [facility] HendersonAutomated blood platelet count (count/volume)2019-10-27 05:15:00* Test Item Value Reference Range Interpretation Comments Platelet Count (test code = 777-3) 328 140-360 [facility] HendersonAutom[facility] blood segmented neutrophil count as percentage of total gvqhzxehhi1400-20-72 05:15:00* Test Item Value Reference Range Interpretation Comments Neutrophils (%) (Auto) (test code = 74568-1) 70.5 38.7-80.0 [facility] HendersonAutnov[facility] healthed blood lymphocyte count as percentage ot total fmqwquyazk3951-25-69 05:15:00* Test Item Value Reference Range Interpretation Comments Lymphocytes (%) (Auto) (test code = 736-9) 18.2 18.0-39.1 [facility] HendersonAutom[facility] blood monocyte count as percentage of total jpfjujvhtc9350-53-78 05:15:00* Test Item Value Reference Range Interpretation Comments Monocytes (%) (Auto) (test code = 5905-5) 10.4 4.4-11.3 [facility]Aut[facility] blood eosinophil count as percentage of total yoweuxajxs5989-60-95 05:15:00* Test Item Value Reference Range Interpretation Comments Eosinophils (%) (Auto) (test code = 713-8) 0.0 0.0-6.0 [facility] HendersonAutom[facility] blood basophil count as percentage of total haqdhefbyg9397-29-64 05:15:00* Test Item Value Reference Range Interpretation Comments Basophils (%) (Auto) (test code = 706-2) 0.6 0.0-1.0 [facility] HendersonFluoroscopic procedure less than one hour xrrvtyrz6824-10-12 05:15:00* Test Item Value Reference Range Interpretation Comments IM GRANULOCYTES % (test code = IM GRANULOCYTES %) 0.3 0.0- 1.0 [facility] HendersonAutom[facility] blood neutrophil count 2019-10-27 05:15:00* Test Item Value Reference Range Interpretation Comments Neutrophils # (Auto) (test code = 751-8) 6.7 2.1-6.9 [facility] HendersonBlood lymphocytes count (number/volume) 2019-10-27 05:15:00* Test Item Value Reference Range Interpretation Comments Lymphocytes # (Auto) (test code = 61983-7) 1.7 1.0-3.2 [facility] HendersonBlood monocytes automated count (number/volume)2019-10-27 05:15:00* Test Item Value Reference Range Interpretation Comments Monocytes # (Auto) (test code = 742-7) 1.0 0.2-0.8 [facility] HendersonAutom[facility] blood eosinophil count 2019-10-27 05:15:00* Test Item Value Reference Range Interpretation Comments Eosinophils # (Auto) (test code = 711-2) 0.0 0.0-0.4 [facility] HendersonAutom[facility] blood basophil count (count/volume)2019-10-27 05:15:00* Test Item Value Reference Range Interpretation Comments Basophils # (Auto) (test code = 704-7) 0.1 0.0-0.1 [facility] HendersonFluoroscopic procedure less than one hour odqsuevk7099-84-15 05:15:00* Test Item Value Reference Range Interpretation Comments Absolute Immature Granulocyte (auto (ирина t code = Absolute Immature Granulocyte (auto) 0.03 0-0.1 [facility] plasma sodium measurement (moles/volume)2019-10-27 05:15:00* Test Item Value Reference Range Interpretation Comments Sodium Level (test code = 2951-2) 126 136-145 [facility]ere[facility] or plasma potassium measurement (moles/volume)2019-10-27 05:15:00* Test Item Value Reference Range Interpretation Comments Potassium Level (test code = 2823-3) 3.2 3.5-5.1 [facility]ere[facility] or plasma chloride measurement (moles/volume)2019-10-27 05:15:00* Test Item Value Reference Range Interpretation Comments Chloride Level (test code = 2075-0) 89 98-107 [facility]ererum or plasma carbon dioxide, total measurement (moles/volume)2019-10-27 05:15:00* Test Item Value Reference Range Interpretation Comments Carbon Dioxide Level (test code = 2028-9) 23 22-29 [facility]ererum or plasma anion ihf6252-46-54 05:15:00* Test Item Value Reference Range Interpretation Comments Anion Gap (test code = 94789-0) 17.2 8-16 [facility]ere[facility] or plasma urea nitrogen measurement (mass/volume)2019-10-27 05:15:00* Test Item Value Reference Range Interpretation Comments Blood Urea Nitrogen (test code = 3094-0) 33 7-26 [facility]ere[facility] or plasma creatinine measurement (mass/volume)2019-10-27 05:15:00* Test Item Value Reference Range Interpretation Comments Creatinine (test code = 2160-0) 2.80 0.57-1.11 [facility]ere[facility] or plasma urea nitrogen/creatinine mass vhlrq2974-37-14 05:15:00* Test Item Value Reference Range Interpretation Comments BUN/Creatinine Ratio (test code = 3097-3) 12 6-25 [facility] HendersonEstimated glomerular filtration rate (GFR) oyjpuojlnrwjh5383-01-87 05:15:00* Test Item Value Reference Range Interpretation Comments Estimat Glomerular Filtration Rate (test code = 022749553) 17 >60 Ranges were taken from the National Kidney Disease Education Program and the [facility] literature.Reference ranges:60 or greater: Ovyymc57-46 ( for 3 consecutive months): Chronic kidney disease 15 or less: Kidney failureUT Health HendersonGlucose pojaoidthkx0253-92-07 05:15:00* Test Item Value Reference Range Interpretation Comments Glucose Level (test code = MBC8705) 121 74-118 [facility]ere[facility] or plasma calcium measurement (mass/volume)2019-10-27 05:15:00* Test Item Value Reference Range Interpretation Comments Calcium Level (test code = 23875-5) 7.8 8.4-10.2 [facility]ererum or plasma total bilirubin measurement (mass/volume)2019-10-27 05:15:00* Test Item Value Reference Range Interpretation Comments Total Bilirubin (test code = 1975-2) 0.4 0.2-1.2 [facility] HendersonFluoroscopic procedure less than one hour unfflcdd6749-31-22 05:15:00* Test Item Value Reference Range Interpretation Comments Aspartate Amino Transf (AST/SGOT) (test code = Aspartate Amino Transf (AST/SGOT)) 14 5-34 [facility]ererum or plasma alanine aminotransferase measurement (enzymatic activity/volume)2019-10-27 05:15:00* Test Item Value Reference Range Interpretation Comments Alanine Aminotransferase (ALT/SGPT) (test code = 1742-6) 14 0-55 [facility]2020-07-24 05:15:00* Test Item Value Reference Range Interpretation Comments Ammonia (test code = 45240-8) 40 31-123 [facility]ere[facility] or plasma protein measurement (mass/volume)2019-10-27 05:15:00* Test Item Value Reference Range Interpretation Comments Total Protein (test code = 2885-2) 6.1 6.5-8.1 [facility]ere[facility] or plasma albumin measurement (mass/volume)2019-10-27 05:15:00* Test Item Value Reference Range Interpretation Comments Albumin (test code = 1751-7) 3.1 3.5-5.0 [facility] HendersonPlasma globulin measurement (mass/volume) 2019-10-27 05:15:00* Test Item Value Reference Range Interpretation Comments Globulin (test code = 49077-0) 3.0 2.3-3.5 [facility]ere[facility] or plasma albumin/globulin mass uygog8470-14-57 05:15:00* Test Item Value Reference Range Interpretation Comments Albumin/Globulin Ratio (test code = 1759-0) 1.0 0.8-2.0 [facility]ere[facility] or plasma alkaline phosphatase measurement (enzymatic activity/volume)2019-10-27 05:15:00* Test Item Value Reference Range Interpretation Comments Alkaline Phosphatase (test code = 6768-6) 51 40-150 [facility] 05:15:00* Test Item Value Reference Range Interpretation Comments Ammonia (test code = 32504-5) 40 31-123 [facility]2020-07-24 05:15:00* Test Item Value Reference Range Interpretation Comments Ammonia (test code = 55088-9) 40 31-123 [facility] HendersonUS RENAL RETROPERITONEAL FNRH5010-78-02 17:05:00 [facility] [address] [address] Patient Name: YARELI BOCANEGRA MR #: [id number] : 1950 Age/Sex: 69/F Req #: [id number] Adm Physician: EDIS JOEL MD Ordered by: GHASSAN VUONG, MAYNOR VUONG Report #: [id number] Location: MED/SURG Room/Bed: formerly [facility] Procedure: [id number] US/US JARVIS L RETROPERITONEAL COMP Exam Date: [...] By: LAURI NOGUERA MD 05 Transcribed By: NABOR on 10/26/191705 COPY TO: GHASSANMAYNOR Urine protein measurement (mass/volume)2019-10-26 15:26:00* Test Item Value Reference Range Interpretation Comments Urine Random Total Protein (test code = 2888-6) < 6.8 1-14 [facility] sodium measurement (moles/volume) 2019-10-26 15:26:00* Test Item Value Reference Range Interpretation Comments Urine Random Sodium (test code = 2955-3) 37 [facility] creatinine measurement (mass/volume)2019-10-26 15:26:00* Test Item Value Reference Range Interpretation Comments Urine Creatinine (test code = 2161-8) 29.33 47-110 [facility] HendersonRandom urine protein/creatinine ratio 2019-10-26 15:26:00* Test Item Value Reference Range Interpretation Comments Urine Protein/Creatinine Ratio (test code = 91871-7) 0.00 [facility] HendersonOsmolality of Umxzl2564-28-54 15:26:00* Test Item Value Reference Range Interpretation Comments Urine Osmolality (test code = 2695-5) 169 . 24 hr : 300 - 900 Random: 50 - 1400 After 12hr fluid restriction: >850Performed at: - Lab[address] [id number] Director: Garett Irvin MD, Phone: [phone] Health HendersonUrine protein measurement (mass/volume)2019-10-26 15:26:00* Test Item Value Reference Range Interpretation Comments Urine Random Total Protein (test code = 2888-6) < 6.8 1-14 [facility] Henderson[facility] sodium measurement (moles/volume) 2019-10-26 15:26:00* Test Item Value Reference Range Interpretation Comments Urine Random Sodium (test code = 2955-3) 37 [facility] HendersonU[facility] creatinine measurement (mass/volume)2019-10-26 15:26:00* Test Item Value Reference Range Interpretation Comments Urine Creatinine (test code = 2161-8) 29.33 47-110 [facility] HendersonRandom urine protein/creatinine ratio 2019-10-26 15:26:00* Test Item Value Reference Range Interpretation Comments Urine Protein/Creatinine Ratio (test code = 58912-4) 0.00 [facility] HendersonOsmolality of Qurab9219-77-45 15:26:00* Test Item Value Reference Range Interpretation Comments Urine Osmolality (test code = 2695-5) 169 . 24 hr : 300 - 900 Random: 50 - 1400 After 12hr fluid restriction: >850Performed at: [facility] [id number] Director: Garett Irvin MD, Phone: [phone] Health HendersonUrine protein measurement (mass/volume)2019-10-26 15:26:00* Test Item Value Reference Range Interpretation Comments Urine Random Total Protein (test code = 2888-6) < 6.8 1-14 [facility] Henderson[facility] creatinine measurement (mass/volume)2019-10-26 15:26:00* Test Item Value Reference Range Interpretation Comments Urine Creatinine (test code = 2161-8) 29.33 47-110 [facility] HendersonRandom urine protein/creatinine ratio 2019-10-26 15:26:00* Test Item Value Reference Range Interpretation Comments Urine Protein/Creatinine Ratio (test code = 35194-3) 0.00 [facility] HendersonOsmolality of Oaxti0977-55-50 15:26:00* Test Item Value Reference Range Interpretation Comments Urine Osmolality (test code = 2695-5) 169 . 24 hr : 300 - 900 Random: 50 - 1400 After 12hr fluid restriction: >850Performed at: [facility]Ald[facility]rp [address] [id number] Director: Garett Irvin MD, Phone: [phone] Health HendersonFluoroscopic procedure less than one hour rijqhxcn7617-89-57 05:00:00* Test Item Value Reference Range Interpretation Comments Hemoglobin A1c Percent (test code = Hemoglobin A1c Percent) 11.8 4.0-7.0 [facility] HendersonPhosphorus wnedhsknjpp0042-70-79 05:00:00 * Test Item Value Reference Range Interpretation Comments Phosphorus Level (test code = PQY2776) 5.0 2.3-4.7 [facility]ererum or plasma magnesium measurement (mass/volume)2019-10-26 05:00:00* Test Item Value Reference Range Interpretation Comments Magnesium Level (test code = 98219-6) 1.6 1.3-2.1 [facility]ererum or plasma triglyceride measurement (mass/volume)2019-10-26 05:00:00* Test Item Value Reference Range Interpretation Comments Triglycerides Level (test code = 2571-8) 134 0-149 [facility]ererum or plasma cholesterol measurement (mass/volume)2019-10-26 05:00:00* Test Item Value Reference Range Interpretation Comments Cholesterol Level (test code = 2093-3) 86 0-199 Less than 200 mg/dL Low Kmrq251 - 239 mg/dL Borderline Abrn298 m g/dl and greater High Risk [facility]ererum or plasma cholesterol in LDL measurement (mass/volume) 2019-10-26 05:00:00* Test Item Value Reference Range Interpretation Comments LDL Cholesterol (test code = 2089-1) 26 60-130 [facility]ere[facility] or plasma cholesterol in HDL measurement (mass/volume)2019-10-26 05:00:00* Test Item Value Reference Range Interpretation Comments HDL Cholesterol (test code = 2085-9) 33 40-60 [facility]ererum or plasma total cholesterol/cholesterol in HDL mass tlwvs1250-00-17 05:00:00* Test Item Value Reference Range Interpretation Comments Cholesterol/HDL Ratio (test code = 9830-1) 2.6 3.0-3.6 [facility]ere[facility] or plasma thyrotropin measurement by detection limit <= 0.005 miu/l (units/volume)2019-10-26 05:00:00* Test Item Value Reference Range Interpretation Comments Thyroid Stimulating Hormone (TSH) (test code = 38458-4) 0.155 0.350-4.940 [facility] HendersonOsmolality of Serum or Xrpssv2816-20-28 05:00:00* Test Item Value Reference Range Interpretation Comments Serum Osmolality (test code = 2692-2) 241 280-301 Performed at: [facility] Lab[address] [id number] Director: Garett Irvin MD, Phone: [phone] Health HendersonFluoroscopic procedure less than one hour cdgtqais4822-21-91 05:00:00* Test Item Value Reference Range Interpretation Comments Hemoglobin A1c Percent (test code = Hemoglobin A1c Percent) 11.8 4.0-7.0 [facility] HendersonPhosphorus bzazsbaiqft0868-59-98 05:00:00 * Test Item Value Reference Range Interpretation Comments Phosphorus Level (test code = RCZ4490) 5.0 2.3-4.7 [facility]ere[facility] or plasma magnesium measurement (mass/volume)2019-10-26 05:00:00* Test Item Value Reference Range Interpretation Comments Magnesium Level (test code = 92384-2) 1.6 1.3-2.1 [facility]ererum or plasma triglyceride measurement (mass/volume)2019-10-26 05:00:00* Test Item Value Reference Range Interpretation Comments Triglycerides Level (test code = 2571-8) 134 0-149 [facility]ererum or plasma cholesterol measurement (mass/volume)2019-10-26 05:00:00* Test Item Value Reference Range Interpretation Comments Cholesterol Level (test code = 2093-3) 86 0-199 Less than 200 mg/dL Low Dtro822 - 239 mg/dL Borderline Exra298 m g/dl and greater High Risk [facility]ererum or plasma cholesterol in LDL measurement (mass/volume) 2019-10-26 05:00:00* Test Item Value Reference Range Interpretation Comments LDL Cholesterol (test code = 2089-1) 26 60-130 [facility]ererum or plasma cholesterol in HDL measurement (mass/volume)2019-10-26 05:00:00* Test Item Value Reference Range Interpretation Comments HDL Cholesterol (test code = 2085-9) 33 40-60 [facility]ererum or plasma total cholesterol/cholesterol in HDL mass jarhv0928-50-90 05:00:00* Test Item Value Reference Range Interpretation Comments Cholesterol/HDL Ratio (test code = 9830-1) 2.6 3.0-3.6 [facility]ererum or plasma thyrotropin measurement by detection limit <= 0.005 miu/l (units/volume)2019-10-26 05:00:00* Test Item Value Reference Range Interpretation Comments Thyroid Stimulating Hormone (TSH) (test code = 08546-7) 0.155 0.350-4.940 [facility] HendersonOsmolality of Serum or Kvdfdv7143-12-08 05:00:00* Test Item Value Reference Range Interpretation Comments Serum Osmolality (test code = 2692-2) 241 280-301 Performed at: [facility] [id number] Director: Gartet Irvin MD, Phone: [phone] Health HendersonFluoroscopic procedure less than one hour kqjbmniq7468-49-23 05:00:00* Test Item Value Reference Range Interpretation Comments Hemoglobin A1c Percent (test code = Hemoglobin A1c Percent) 11.8 4.0-7.0 [facility] HendersonPhosphorus ulaffzzbrkt3325-15-26 05:00:00 * Test Item Value Reference Range Interpretation Comments Phosphorus Level (test code = VSV9922) 5.0 2.3-4.7 [facility]ere[facility] or plasma magnesium measurement (mass/volume)2019-10-26 05:00:00* Test Item Value Reference Range Interpretation Comments Magnesium Level (test code = 59998-8) 1.6 1.3-2.1 [facility]ererum or plasma triglyceride measurement (mass/volume)2019-10-26 05:00:00* Test Item Value Reference Range Interpretation Comments Triglycerides Level (test code = 2571-8) 134 0-149 [facility]ererum or plasma cholesterol measurement (mass/volume)2019-10-26 05:00:00* Test Item Value Reference Range Interpretation Comments Cholesterol Level (test code = 2093-3) 86 0-199 Less than 200 mg/dL Low Pjiv184 - 239 mg/dL Borderline Oxov313 m g/dl and greater High Risk [facility]ererum or plasma cholesterol in LDL measurement (mass/volume) 2019-10-26 05:00:00* Test Item Value Reference Range Interpretation Comments LDL Cholesterol (test code = 2089-1) 26 60-130 [facility]ererum or plasma cholesterol in HDL measurement (mass/volume)2019-10-26 05:00:00* Test Item Value Reference Range Interpretation Comments HDL Cholesterol (test code = 2085-9) 33 40-60 [facility]ererum or plasma total cholesterol/cholesterol in HDL mass lxios4560-11-01 05:00:00* Test Item Value Reference Range Interpretation Comments Cholesterol/HDL Ratio (test code = 9830-1) 2.6 3.0-3.6 [facility]ere[facility] or plasma thyrotropin measurement by detection limit <= 0.005 miu/l (units/volume)2019-10-26 05:00:00* Test Item Value Reference Range Interpretation Comments Thyroid Stimulating Hormone (TSH) (test code = 99906-4) 0.155 0.350-4.940 [facility] HendersonOsmolality of Serum or Gkxjyq1711-71-30 05:00:00* Test Item Value Reference Range Interpretation Comments Serum Osmolality (test code = 2692-2) 241 280-301 Performed at: [facility] LabCo[address] [id number] Director: Garett Irvin MD, Phone: [phone] Health HendersonFluoroscopic procedure less than one hour muobszhw8738-17-65 16:23:00* Test Item Value Reference Range Interpretation [...] complexity tests.Testing performed by [facility] [address] [phone] Director: Jason Jackson M.D.[facility] # [id number] [facility] Fluoroscopic procedure less than one hour kbujpnac6533-88-55 16:23:00* Test Item Value Reference Range Interpretation [...] complexity tests.Testing performed by [facility] [address] [phone] Director: Jason Jackson M.D.CLIA # [id number] [facility] Fluoroscopic procedure less than one hour chjnhupn2527-91-88 16:23:00* Test Item Value Reference Range Interpretation [...] complexity tests.Testing performed by [facility] [address] [place], [place] [phone] Director: Jason Jackson M.D.CLIA # [id number] [facility]ville[facility]/PELVIS IG1950-15-66 14:41:[address] [address] Patient Name: YARELI BOCANEGRA MR #: [id number] : 1950 Age/Sex: 69/F Req #: [id number] Adm Physician: Ordered by: JC ANAYA MD Report #: [id number] Location: ER Room/Bed: Procedure: [id number] CT/CT ABDOME N/PELVIS WO Exam Date: 10/25/19 Exam Time: 1420 REPORT STATUS: Signed EXAM: CT Abdom en and Pelvis WITHOUT intravenous contrast INDICATION: Flank pain CO MPARISON: None. TECHNIQUE: Abdomen and pelvis were scanned utilizing a [employer] helical scanner from the lung base to [...] Color (test code = 5778-6) YELLOW YELLOW [facility] sojzozh8103-62-14 14:07:00* Test Item Value Reference Range Interpretation Comments Urine Clarity (test code = 52503-4) SL CLOUDY CLEAR [facility] Centerpecific gravity of Urine by Test strip 2019-10-25 14:07:00* Test Item Value Reference Range Interpretation Comments Urine Specific [place] (test code = 5811-5) 1.025 1.010-1.02 5 [facility] pH measurement by automated test pgfge1104-70-33 14:07:00* Test Item Value Reference Range Interpretation Comments Urine pH (test code = 71749-8) 5 5-7 [facility] HendersonU[facility] leukocyte esterase detection by synehlgg8929-42-13 14:07:00* Test Item Value Reference Range Interpretation Comments Urine Leukocyte Esterase (test code = 5799-2) SMALL NEGATIVE [facility] HendersonUrine nitrite feduajwts8411-57-69 14:07:00* Test Item Value Reference Range Interpretation Comments Urine Nitrite (test code = 90277-9) NEGATIVE NEGATIVE [facility] Henderson[facility] protein measurement by test strip (mass/volume)2019-10-25 14:07:00* Test Item Value Reference Range Interpretation Comments Urine Protein (test code = 5804-0) TRACE NEGATIVE [facility] Henderson[facility] glucose uiswikpoo9410-70-21 14:07:00* Test Item Value Reference Range Interpretation Comments Urine Glucose (UA) (test code = 2349-9) NEGATIVE NEGATIVE [facility] HendersonU[facility] ketones detection by automated test dtkcn0941-58-88 14:07:00* Test Item Value Reference Range Interpretation Comments Urine Ketones (test code = 66533-9) NEGATIVE NEGATIVE [facility] HendersonU[facility] urobilinogen measurement by test strip (mass/volume)2019-10-25 14:07:00* Test Item Value Reference Range Interpretation Comments Urine Urobilinogen (test code = 99624-1) 0.2 0.2-1 [facility] Henderson[facility] total bilirubin measurement (mass/volume)2019-10-25 14:07:00* Test Item Value Reference Range Interpretation Comments Urine Bilirubin (test code = 1978-6) SMALL NEGATIVE [facility] HendersonU[facility] erythrocytes bbngiwxmt8038-40-05 14:07:00* Test Item Value Reference Range Interpretation Comments Urine Blood (test code = 51243-1) TRACE NEGATIVE [facility] HendersonAutomated urine sediment leukocyte count by microscopy (number/high power field)2019-10-25 14:07:00* Test Item Value Reference Range Interpretation Comments Urine WBC (test code = 5821-4) 6-10 0-5 [facility] HendersonErythrocytes detection in urine sediment by light wdbtmebhpv0671-51-80 14:07:00* Test Item Value Reference Range Interpretation Comments Urine RBC (test code = 32410-1) 0-5 0-5 [facility] HendersonBacteria detection in urine sediment by light kotrifxwfq5465-88-71 14:07:00* Test Item Value Reference Range Interpretation Comments Urine Bacteria (test code = 73688-5) [facility]ONE [facility] in [facility] sediment by light kpkrpjgaeh9672-32-24 14:07:00* Test Item Value Reference Range Interpretation Comments Urine Epithelial Cells (test code = 34095-9) RARE NONE [facility] HendersonTransitional cells detection in urine sediment by light kndovqbdtm1088-63-36 14:07:00* Test Item Value Reference Range Interpretation Comments Urine Transitional Epithelial Cells (test code = 8249-5) FEW NONE [facility]Amorphous sediment detection in urine sediment by light ctobzvhxrs9778-69-32 14:07:00* Test Item Value Reference Range Interpretation Comments Urine Amorphous Sediment (test code = 8246-1) MODERATE FEW [facility] color ujyxpticythfh1121-67-79 14:07:00* Test Item Value Reference Range Interpretation Comments Urine Color (test code = 5778-6) YELLOW YELLOW [facility] waurcsj6266-28-70 14:07:00* Test Item Value Reference Range Interpretation Comments Urine Clarity (test code = 80331-7) SL CLOUDY CLEAR [facility] by Test strip 2019-10-25 14:07:00* Test Item Value Reference Range Interpretation Comments Urine Specific [place] (test code = 5811-5) 1.025 1.010-1.02 5 [facility] measurement by automated test vedro9751-13-13 14:07:00* Test Item Value Reference Range Interpretation Comments Urine pH (test code = 16410-7) 5 5-7 [facility] leukocyte esterase detection by qthbvwmf4189-16-05 14:07:00* Test Item Value Reference Range Interpretation Comments Urine Leukocyte Esterase (test code = 5799-2) SMALL NEGATIVE [facility] nitrite tbtavztwl1243-68-48 14:07:00* Test Item Value Reference Range Interpretation Comments Urine Nitrite (test code = 53495-4) NEGATIVE [facility]GATIVE [facility] protein measurement by test strip (mass/volume)2019-10-25 14:07:00* Test Item Value Reference Range Interpretation Comments Urine Protein (test code = 5804-0) TRACE NEGATIVE [facility] glucose vikghmpll4038-41-36 14:07:00* Test Item Value Reference Range Interpretation Comments Urine Glucose (UA) (test code = 2349-9) NEGATIVE [facility]GATIVE [facility] ketones detection by automated test opovr7254-20-93 14:07:00* Test Item Value Reference Range Interpretation Comments Urine Ketones (test code = 75419-4) NEGATIVE NEGATIVE [facility] urobilinogen measurement by test strip (mass/volume)2019-10-25 14:07:00* Test Item Value Reference Range Interpretation Comments Urine Urobilinogen (test code = 79582-7) 0.2 0.2-1 [facility] total bilirubin measurement (mass/volume)2019-10-25 14:07:00* Test Item Value Reference Range Interpretation Comments Urine Bilirubin (test code = 1978-6) SMALL NEGATIVE [facility] erythrocytes kwyjntsuk3808-68-13 14:07:00* Test Item Value Reference Range Interpretation Comments Urine Blood (test code = 99632-1) TRACE NEGATIVE [facility] sediment leukocyte count by microscopy (number/high power field)2019-10-25 14:07:00* Test Item Value Reference Range Interpretation Comments Urine WBC (test code = 5821-4) 6-10 0-5 [facility]rythrocytes detection in urine sediment by light wvgaoqersp6676-95-46 14:07:00* Test Item Value Reference Range Interpretation Comments Urine RBC (test code = 25349-9) 0-5 0-5 [facility]Bacteria detection in urine sediment by light wikkcpxmfl8784-53-07 14:07:00* Test Item Value Reference Range Interpretation Comments Urine Bacteria (test code = 00851-9) MODERATE NONE [facility] detection in urine sediment by light apchrshgnp3288-78-59 14:07:00* Test Item Value Reference Range Interpretation Comments Urine Epithelial Cells (test code = 41751-4) RARE NONE [facility]Transitional cells detection in urine sediment by light fdhdwwczug0310-62-05 14:07:00* Test Item Value Reference Range Interpretation Comments Urine Transitional Epithelial Cells (test code = 8249-5) FEW NONE [facility]Am[facility] sediment detection in urine sediment by light umivojabyk2561-42-75 14:07:00* Test Item Value Reference Range Interpretation Comments Urine Amorphous Sediment (test code = 8246-1) MODERATE FEW [facility]Transitional cells detection in urine sediment by light poheqyjmef1991-25-86 14:07:00* Test Item Value Reference Range Interpretation Comments Urine Transitional Epithelial Cells (test code = 8249-5) FEW NONE [facility]Am[facility] sediment detection in urine sediment by light qskxwsdfnn4501-71-79 14:07:00* Test Item Value Reference Range Interpretation Comments Urine Amorphous Sediment (test code = 8246-1) MODERATE FEW [facility]CCP Anitbodies IgG & [id number] 22:06:00* Test Item Value Reference Range Interpretation Comments CCP Antibodies IgG/IgA (test code = 25735-2) 9 0- 19 uni ts Negative <20 Weak positive 20 - 39 Moderate positive 40 - 59 Strong positive >59 AMBER (test code = AMBER) Performed at: [address] [place] [address] [address], [place], [place] [id number] Director: Enid Villatoro MD, Phone: [phone] [facility] NetworkHemoglobin [id number] 21:51:00* Test Item Value Reference Range Interpretation Comments Hemoglobin A1c (test code = 4548-4) 13.5 % 4.3-6.1 H Estimated Average Glucose (test code = 48058956) 341 mg/dL 70-11 0 H Lab Interpretation (test code = 33274-5) Abnormal [facility] NetworkBNP [B-Type Natriuretic Peptide]2019-01-05 17:18:00* Test Item Value Reference Range Interpretation Comments B Natriuretic Peptide (BNP) (test code = 67240628) 47 pg/mL <=1 00 Lab Interpretation (test code = 12154-1) Normal [facility] NetworkSED Chnh5138-68-85 17:03:00* Test Item Value Reference Range Interpretation Comments Sed Rate (test code = 93189689) 57 0-<30 mm/Hr H Lab Interpretation (test code = 61726-0) Abnormal [facility] NetworkHIV-1/HIV-2 Routine Xkwczmusw8920-96-64 16:40:00* Test Item Value Reference Range Interpretation Comments HIV Ag/Ab Combo (test code = 51009-0) Negative Negative Lab Interpretation (test code = 23616-6) Normal [facility] NetworkCBC/Mwjh5012-54-57 16:11:00* Test Item Value Reference Range Interpretation [...] g/dL 32-36 L RDW (test code = 51261-7) 43.0 fL 36.4-46.3 Platelet (test code = 777-3) 251 K/uL 150-400 Mean Platelet Volume (test code = 60212-0) 12.2 fL 9.4-12.4 Percent NRBC (test code = 00669850) 0.0 % Neutrophil (test code = 770-8) 66.6 % 34-70 Lymphs (test code = 736-9) 26.0 % 20-50 Monocytes (test code = 5905-5) 6.4 % 5-12 Eos (test code = 713-8) 0.0 % 0.7-5 L Basos (test code = 706-2) 0.7 % 0.1-1.2 Immature Granulocytes (test code = 16203707) 0.3 % 0-0.5 Neutrophils (Absolute) (test code = 39905723) 6.04 K/uL 1.56-6.1 3 Lymphs (Absolute) (test code = 14975847) 2.36 K/uL 1.18-3.74 Monocytes(Absolute) (test code = 07539859) 0.58 K/uL 0.24-0.36 H Eos (Absolute) (test code = 15535778) 0.00 K/uL 0.04-0.36 L Baso (Absolute) (test code = 84057394) 0.06 K/uL 0.01-0.08 Immature Grans (Abs) (test code = 19758538) 0.03 K/uL 0-0.03 Absolute NRBC (test code = 58049388) 0.00 K/uL Lab Interpretation (test code = 76899-0) Abnormal [facility] NetworkVitamin [id number] 15:43:00* Test Item Value Reference Range Interpretation Comments Vitamin B12 (test code = 46678030) 427 pg/mL See comment Normal: 180-914 pg/mLIntermittent: 145-180 pg/mLDeficient: <=145.0 pg/mL [facility] NetworkTSH [Thyroid Stimulating Hormone]2019-01-05 15:32:00* Test Item Value Reference Range Interpretation Comments TSH (test code = 05242492) 2.34 0.57- 3.74 uIU/mL If , please see the following reference ranges (not verified by lab): 1st Trimester: 0.05 -3.70 uIU/mL2nd Trimester: 0.31 -4.35 uIU/mL3rd Trimester: 0.41 - 5.18 uIU/mL Lab Interpretation (test code = 66439-6) Normal [facility] NetworkLipid Brgdrag8455-35-86 15:26:00* Test Item Value Reference Range Interpretation Comments Cholesterol (test code = 2093-3) 144.0 mg/dL <=200.0 Triglyceride (test code = 79014068) 132 mg/dL <150 HDL (test code = 2085-9) 51.0 mg/dL See Reference Range Narrative . LDL (test code = 29289-8) 67 mg/dL <100 Op timal: < 100.0 mg/dLNear Optimal: 120-129 mg/dLBorderline: 130-159 mg/dLHigh: 160-189 mg/dLVery High: >=190 mg/dL Patient Fasting? (test code = 43346718) Yes [facility] NetworkRa Pucesn0869-00-81 15:26:00* Test Item Value Reference Range Interpretation Comments RA (test code = 25792032) <10 <14 IU/mL Lab Interpretation (test code = 80024-8) Normal [facility] NetworkComprehensive Metabolic Vfhll2666-66-87 15:26:00* Test Item Value Reference Range Interpretation Comments Sodium (test code = 2951-2) 135 mmol/L 136-145 L Potassium (test code = 2823-3) 4.7 mmol/L 3.5-5.1 Chloride (test code = 2075-0) 94 mmol/L 98-107 L CO2 (test code = 92047236) 29 mmol/L 21-31 Glucose (test code = 20858876) 367 mg/dL 70-110 H Calcium (test code = 21246662) 9.9 mg/dL 8.6-10.3 Urea Nitrogen (test code = 60646618) 15.0 mg/dL 7-25 Creatinine (test code = 16144251) 0.8 mg/dL 0.6-1.2 Alkaline Phosphatase (test code = 60774861) 76 U/L 34-104 ALT (test code = 47190663) 24 U/L 7-52 AST (test code = 18166648) 15 U/L 13-39 Total Protein (test code = 2885-2) 7.3 g/dL 6-8.3 GFR, Estimated (test code = 12946842) 71 >=90 mL/min/1.73 m2 L Albumin (test code = 67509-2) 4.4 g/dL 3.7-5.3 Anion Gap (test code = 98739230) 12 mmol/L 5-16 Lab Interpretation (test code = 54442-9) Abnormal [facility] NetworkMicroalbumin / Creatinine Urine Ehwvf1479-15-63 14:30:00* Test Item Value Reference Range Interpretation Comments Microalbumin, Random (test code = 61543211) 4.4 mg/dL <30.0 Creatinine, Urine (test code = 90725802) 23 mg/dL 20-320 Urine Microalbumin (test code = 02837834) 191.3 mg/g 0-30 H Lab Interpretation (test code = 57484-7) Abnormal [facility]
[2019-11-13] MEDS ORDERED: SODIUM CHLORIDE 0.9% 1000ML 1,000 ML ONE (12:42)
[2019-11-13] MEDS ORDERED: SODIUM CHLORIDE 0.9% 1000ML 1,000 ML IV SCH (13:00)
--- NOTE | 2019-11-13 13:27 | Diagnostic Imaging Report ---
EXAMINATION: CHEST SINGLE (PORTABLE) INDICATION: Fatigue, hyperglycemia COMPARISON: CT abdomen and pelvis of 10/25/2019 FINDINGS: LINES/TUBES:EKG leads overlie the chest. LUNGS:The lungs are well-inflated. No focal consolidation or pulmonary edema. Mild right basilar subsegmental atelectasis. PLEURA:No pleural effusion or pneumothorax. MEDIASTINUM:The cardiomediastinal silhouette appears normal in size and shape. BONES/SOFT TISSUES:No acute osseous injury. ABDOMEN:No free air under the diaphragm. IMPRESSION: Mild right basilar subsegmental atelectasis. No focal pneumonia or pulmonary edema. Signed by: Lyndon Myles MD on 11/13/2019 1:24 PM
[2019-11-13] MEDS: INSULIN REGULAR, HUMAN 100 UNIT/1 ML 3ML VIAL IV ONE ×2 (14:16→14:29)
[2019-11-13] MEDS: LACTATED RINGER'S 1,000 ML INJ ONE ×2 (14:16→14:30)
[2019-11-13 15:22] LABS: ABG HCO3 21 mmol/L (22-26); ABG PCO2 35 mmHg (35-45); ABG PH 7.39 (7.35-7.45); ABG PO2 100 mmHg (80-105); ABG TCO2 22
[2019-11-13 15:32] LABS: ANION GAP 18.5 mmol/L (8-16); CALCIUM 9.8 mg/dL (8.4-10.2); CREATININE, SERUM 1.36 mg/dL (0.57-1.11); POTASSIUM 3.5 mmol/L (3.5-5.1)
[2019-11-13 15:45] LABS: EOSINOPHILS % (MANUAL) 2 % (0-7); LYMPHOCYTES % (MANUAL) 19 % (19-48); MONOCYTES % (MANUAL) 7 % (3.4-9.0); NEUTROPHILS % (MANUAL) 70 % (40-74); PLATELET ESTIMATE ADEQUATE; PLATELET MORPHOLOGY COMMENT NORMAL; RBC MORPHOLOGY COMMENT NORMAL
[2019-11-13 16:21] VITALS: BP 171/82
== END 2019-11-13 16:41 | disposition home or self-care (01) ==
LOC: ER 12:24
DX: E11.65 Type 2 diabetes mellitus with hyperglycemia (principal); I10 Essential (primary) hypertension; E78.5 Hyperlipidemia, unspecified
CPT/HCPCS: 36415; 36600; 71045; 80048; 80053; 82805; 82948; 84484; 85025; 93005; 99284; J1817; J7030; J7121

== ENCOUNTER 2020-01-05 23:21 | Emergency (ER) | payer MEDICARE, OTHER ==
[~2020-01-05] VITALS: Ht 167.6 cm; Wt 81.2 kg
--- NOTE | 2020-01-05 23:27 | Emergency Department Note ---
History of Present Illnes History of Present Illness History of Present Illness This is a 69 year old female L knee pain which radiates to her lower lumbar region. . Historian: Patient Onset (how long ago): day(s) Location: back Radiation: Reports extremity Onset quality: gradual Duration (how long): day(s) Timing of current episode: constant Progression: waxing and waning Chronicity: new Context: Denies recent illness, Denies recent surgery, Denies recent immobilization, Denies recent travel, Denies trauma/injury, Denies new medications, Denies hx of DVT/PE, Denies non-compliance w/ medications, Denies other Relieving factors: immobilization, rest Exacerbating factors: movement Associated symptoms: Denies denies other symptoms, Denies confusion, Denies chest pain, Denies cough, Denies diaphoresis, Denies fever/chills, Denies headaches, Denies loss of appetite, Denies malaise, Denies nausea/vomiting, Denies rash, Denies seizure, Denies shortness of breath, Denies syncope, Denies weakness, Denies other Past Medical/Family History Physician Review I have reviewed the patient's past medical and family history. Any updates have been documented here. Past Medical History Recent Fever: No Clinical Suspicion of Infectio: No New/Unexplained Change in Ment: No Past Medical History: Hypertension, Diabetes, Hyperlipedemia Past Surgical History: None Social History Smoking Cessation: Never Smoker Alcohol Use: None Any Illegal Drug Use: No Review of Systems Review of Systems Constitutional: Reports no symptoms EENTM: Reports no symptoms Cardiovascular: Reports no symptoms Respiratory: Reports no symptoms Gastrointestinal: Reports no symptoms Genitourinary: Reports no symptoms Musculoskeletal: Reports no symptoms, Reports back pain, Reports joint pain Integumentary: Reports no symptoms Neurological: Reports no symptoms Psychological: Reports no symptoms Endocrine: Reports no symptoms Hematological/Lymphatic: Reports no symptoms Physical Exam Related Data Allergies: Coded Allergies: No Known Allergies (Unverified , 10/25/19) Triage Vital Signs Vital Signs Date Time Temp Pulse Resp B/P (MAP) Pulse Ox O2 Delivery O2 Flow Rate FiO2 01/05/20 23:26 98.0 98 17 169/98 100 Room Air Vital signs reviewed: Yes Physical Exam CONSTITUTIONAL Constitutional: Present well-developed, Present well-nourished HENT HENT: Present normocephalic, Present atraumatic, Present oropharynx clear/moist, Present nose normal HENT L/R: Present left ext ear normal, Present right ext ear normal EYES Eyes: Reports PERRL, Reports conjunctivae normal NECK Neck: Present ROM normal PULMONARY Pulmonary: Present effort normal, Present breath sounds normal CARDIOVASCULAR Cardiovascular: Present regular rhythm, Present heart sounds normal, Present capillary refill normal, Present normal rate GASTROINTESTINAL Abdominal: Present soft, Present nontender, Present bowel sounds normal GENITOURINARY Genitourinary: Present exam deferred SKIN Skin: Present warm, Present dry MUSCULOSKELETAL Musculoskeletal: Present tenderness (R hip , Midline lower lumbar) NEUROLOGICAL Neurological: Present alert, Present oriented x 3, Present no gross motor or sensory deficits PSYCHOLOGICAL Psychological: Present mood/affect normal, Present judgement normal Results Imaging Imaging results reviewed: Yes Impressions [place] [id number] Patient Name: YARELI BOCANEGRA MR #: [id number] : 1950 Age/Sex: 69/F Req #: [id number] Adm Physician: Ordered by: MARY ALICE CHACON DO Report #: [id number] Location: ER Room/Bed: Procedure: [id number] DX/LUMBAR 3 VIEW Exam Date: 01/05/20 Exam Time: 2345 REPORT STATUS: Signed Xray Lumbar Spine 3 views HISTORY: Pain. COMPARISON: Abdominal CT 10/25/2019 DISCUSSION: Some of the osseous structures are partially obscured by stool and bowel gas. There are five non-rib bearing lumbar vertebral bodies. The alignment of the spine is within normal limits. No displaced fracture or compression deformity is identified. Disc Spaces: The disc spaces are well maintained. Multilevel discussed defects. Decreased L3-L4 and L5-S1 disc height. 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 Degenerative changes in the pelvis and hips IMPRESSION: No acute radiographic abnormality. Degenerative changes in the lumbar spine, hips, and pelvis. Signed by: Jose Machado DO on 01/06/2020 12:34 AM Dictated By: JOSE MACHADO DO Transcribed By: NABOR on 01/06/2033 COPY TO: MARY ALICE CHACON DO~ Assessment & Plan Medical Decision Making MDM Diff Dx : msc strain, DVT , fx Assessment & Plan Final Impression: (1) Sciatica Depart Disposition: HOME, SELF-FDC Meds Active Scripts Glipizide (GLIPIZIDE) 5 Mg Tablet, 5 MG PO DAILY for 14 Days, #14 TAB 0 Refills Prov:KAYLA SAENZ NP 10/29/19 [Lidocaine Patch] 1 EA PATCH No Conflict Check, 1 EA TP DAILY for 14 Days, #14 PATCH 0 Refills Prov:KAYLA SAENZ NP 10/29/19 MARY ALICE CHACON DO Jan 05, 2020 23:26
[2020-01-05] MEDS ORDERED: KETOROLAC TROMETHAMINE 60 MG/2 ML VIAL IM ONE (23:45)
--- OUTSIDE RECORDS SUMMARY | 2020-01-05 23:52 | XMS REPORT | Clinical Summary ---
Author Author [facility] ict Organization [facility] ict Address Unknown Phone Unavailable Care Team Providers Care Professor Of Languages Name Role Phone Iveth Proctor DO PCP Allergies No Known Allergies Medications End [...] weekly (once 7 strips per day on ) to test blood sugar. Active lancets 28 gauge Use 2 times 100 Each 5 weekly as 7 directed. Active amLODIPine (NORVASC) 5 mg Take 1 [...] 2 per day on diabetes mellitus with ) to complication, without test blood long-term current use of sugar. insulin Active lancets 28 Use 2 times 100 Each 1 gaugeIndications: Type 2 weekly as 0 diabetes mellitus with directed. complication, without long-term current use of insulin Active Miscellaneous Medical by 1 Each 0 08/0 Supply MiscIndications: Misc.(Non-Grey 0 Essential hypertension g; Combo Route) route BP machine. Active linaGLIPtin (TRADJENTA) 5 Take 1 tablet 90 tablet 1 mg tabletIndications: by mouth 0 Inadequately controlled daily. diabetes mellitus Active pen needle, diabetic 31 Inject under 2 Box 5 0 gauge x 3/16" the skin 3 0 needlesIndications: times daily. Inadequately controlled diabetes mellitus Active blood glucose test 1 Each by 300 Each 6 02 stripsIndications: MISCELLANEOUS 0 Inadequately controlled route 3 times diabetes mellitus daily. Active insulin aspart U-100 Inject under 24 mL 3 11/03 (NOVOLOG FLEXPEN) 100 skin - three 0 unit/mL (3 mL) times before penIndications: meals - Inadequately controlled inject 4 diabetes mellitus units if sugar is 250-299; 6 units if sugar is 300-399 ; 8 units if sugars are 400 to 499 ; call if sugar more than 500. Active lancets 28 Check blood 300 Each 3 gaugeIndications: glucose 3 0 Inadequately controlled times daily diabetes mellitus Active insulin detemir U-100 Inject 15 15 mL 3 11/03 (LEVEMIR FLEXTOUCH U-100 Units under 0 INSULN) 100 unit/mL (3 the skin mL) PenIndications: daily. Inadequately controlled diabetes mellitus Active atorvastatin (LIPITOR) 10 Take 1 tablet 90 tablet 1 mg tabletIndications: by mouth at 0 Mixed hyperlipidemia bedtime nightly For cholesterol. Active venlafaxine (EFFEXOR XR) Take 1 90 capsule 1 0 37.5 mg extended release capsule by 0 capsuleIndications: mouth daily. Anxiety Active piroxicam (FELDENE) 10 mg Take 1 60 capsule 1 capsuleIndications: Left capsule by 0 knee pain, unspecified mouth daily. chronicity 01/04/2021 Active Cyclobenzaprine Take 1 tablet 30 tablet 0 01/05/20 2 (FLEXERIL) 5 mg by mouth 3 0 tabletIndications: Left times daily knee pain, unspecified as needed for chronicity Muscle Spasms. 07/26/2019 Discontinued (Alternate ther apy) ibuprofen (MOTRIN) [...] complication, without long-term current use of insulin 12/25/2019 Discontinued (Reorder) atorvastatin (LIPITOR) 10 Take 1 tablet 90 tablet 1 mg tabletIndications: by mouth at 0 Mixed hyperlipidemia bedtime nightly For cholesterol. 11/08/2019 Discontinued (Therapy comple drake) glyBURIDE-metFORMIN Take [...] every 8 hours as needed for Pain. 12/25/2019 Discontinued (Reorder) venlafaxine (EFFEXOR XR) Take 1 90 capsule 1 0 37.5 mg extended release capsule by 0 capsuleIndications: mouth daily. Anxiety 11/21/2019 Discontinued (Alternate ther apy) glipiZIDE (GLUCOTROL) 5 Take 1 tablet 90 tablet 1 mg tabletIndications: by mouth 0 Type 2 diabetes mellitus daily. with complication, without long-term current use of insulin 11/15/2019 Discontinued lancetsIndications: 1 Each 3 300 Each 3 Inadequately controlled times daily. 0 diabetes mellitus 11/14/2019 tropicamide (MYDRIACYL) Instill 1 15 mL 0 0.5 % ophthalmic Drop in each 0 solutionIndications: eye once as Inadequately controlled needed for up diabetes mellitus to 1 dose (for poor retina scan image). 01/05/2020 Discontinued (Alternate ther apy) ibuprofen (MOTRIN) 600 mg Take 1 tablet 30 tablet 0 tabletIndications: Pain by mouth 0 in joint, multiple sites every 8 hours as needed for Pain. Active Problems Problem Noted Date CKD (chronic kidney disease) stage 3, GFR 30-59 ml/mi n- GFR in 30s 11/14/2019 Hyponatremia 04/18/2018 Inadequately controlled diabetes mellitus 01/12/2017 Pain in joints 12/15/2016 Essential hypertension 06/06/2015 BMI 35.0-35.9,adult 05/11/2014 Hypertension 09/26/2013 Diabetes mellitus 09/22/2013 HLD (hyperlipidemia) 09/22/2013 Anxiety state, unspecified 09/14/2007 Depression 09/14/2007 Hx of abnormal mammogram Vitamin D insufficiency Encounters Care Team Description Date Type Specialty Kemi Cr MD Left knee pain, unspecified chronicity ( Primary Dx) 01/05/2020 Telephonic Family Practice Encounter Nikki Awad, OMARI 01/05/2020 Nurse Triage [place] RN 01/02/2020 Nurse Triage Iveth Proctor, Medications 01/01/2020 Refill Family Practice Iveth Proctor, Medications 12/25/2019 Refill Family Practice Iveth Proctor DO Medications 12/25/2019 Refill Family Practice Jailyn Maldonado LD 12/19/2019 Telephonic Nutrition Encounter Luna UrszulaABHILASH 11/28/2019 Nutrition Nutrition Devante Henry MD Inadequately controlled diabetes mellitu s (Primary Dx) 11/21/2019 Telephonic Family Practice Encounter Stephen Guzman RN 11/21/2019 Patient Patient Education Education Meeta Méndez RN 11/16/2019 Nurse Triage Devante Henry MD 11/15/2019 Orders Only Family Practice Nikki Awad RN 11/15/2019 Nurse Triage Jailyn Maldonado LD 11/15/2019 Nutrition Devante Napoles MD Medications 11/15/2019 Refill Family Practice Devante Henry MD Inadequately controlled diabetes mellitu s (Primary Dx); CKD (chronic kidney disease) stage 3, GFR 30-59 ml/min- GFR in 30s ; Essential hypertension 11/14/2019 Telephonic Family Practice Encounter Nikki Awad, OMARI 11/13/2019 Nurse Triage Iveth Proctor DO Type 2 diabetes mellitus with complicati on, without long-term current use of insulin (Primary Dx); Essential hypertension; Hospital discharge follow-up; Preventative health care; Chronic kidney disease, unspecified CKD stage 11/08/2019 Telephonic Family Practice Encounter Iveth Proctor DO 11/08/2019 Orders Only [facility] Practice Iveth Proctor DO Medications 08/03/2019 Refill Family Practice Iveth Proctor DO Medications 07/31/2019 Refill Family Practice Iveth Proctor DO Type 2 diabetes mellitus with complicati on, without long-term current use of insulin (Primary Dx); Mixed hyperlipidemia; Essential hypertension; Pain in joint, multiple sites 07/26/2019 Telephonic Family Practice Encounter Iveth Proctor DO Medications 06/21/2019 Refill Family Practice Iveth Proctor DO Type 2 diabetes mellitus with complicati on, without long-term current use of insulin (Primary Dx); Mixed hyperlipidemia; Essential hypertension; Preventative health care; Anxiety; Pain in joint, multiple sites; Anxiety state 01/05/2019 Office Visit Family Practice Iveth Proctor DO 01/05/2019 Orders Only Family Practice after 01/04/2019 Immunizations Name Administration Dates Next Due Influenza [...] history available. Date Recorded COVID-19 Exposure Response 01/05/2020 8:19 AM CDT In the last month, have [...] Treatment Care Team Description Date Type Specialty 01/18/2020 Telephonic Nutrition Encounter Health Maintenance Due Date Last Done Comments Colorectal Cancer Scrn 01/12/2018 01/12/2017 Annual (FIT/FOBT) Age 50 to 75 Breast Cancer Scrn 08/25/2019 08/24/2018, (Yearly) 01/12/2017, 08/03/2014, Additional history exists DM Foot Exam (Yearly) 08/25/2019 08/24/2018, 12/15/2016, 09/26/2013 DM HGBA1C (Yearly) 01/06/2020 01/05/2019, 01/12/2017, 12/08/2016, Additional history exists DM Retinal Exam (Yearly) 01/06/2020 01/05/2019, 01/12/2017 DM Microalbumin Urine 11/13/2020 11/14/2019, Scrn (Yearly) 11/14/2019, 11/08/2019, Additional history exists IMM Pneumococcal Age 66 Completed 12/14/2013 and Up Goals Goal Patient Associated Recent Progress Patient-Stat Aut hor Goal Type Problems ed? use measure cups General Yes Jailyn Maldonado LD Reduce occurrences of sadness Lifestyle Yes [place], or anxiety Ammon Nunez LOWER BLOOD GLUCOSE Lifestyle Not on track No Karan paulson, (12/19/2019 9:04 AM Urszula Lazo MD CDT) Exercise Regularly Self On track (12/19/2019 No Willian, management 9:04 AM CDT) Dave Khalil III, MD Procedures Comments Procedure [...] without long-term current use of insulin after 01/04/2019 Results * CBC/Diff (01/05/2019 9:56 AM CDT) [...] (H) 0.24 - 0.36 K/uL [facility] kaylee) [facility] Eos (Absolute) 0.00 (L) 0.04 - 0.36 K/uL [facility] Baso (Absolute) 0.06 0.01 - 0.08 K/uL [facility] Immature Grans 0.03 0.00 - 0.03 K/uL [facility] (Abs) [facility] Absolute NRBC 0.00 K/uL [facility] Specimen Blood Performing Organization Address [facility] one Number [facility] [address] [place] [address] [phone] * HIV-1/HIV-2 Routine Screening (01/05/2019 9:56 AM CDT) Pathologist [facility] HIV Ag/Ab Combo Negative Negative [facility] Specimen Blood Performing Organization Address [facility] one Number [facility] [address] [place] [address] [phone] * Microalbumin / Creatinine Urine Ratio (01/05/2019 9:56 AM CDT) Pathologist [facility] Microalbumin, 4.4 <30.0 mg/dL [facility] Random [facility] Creatinine, 23 20 - 320 mg/dL [facility] Urine [facility]OR[facility] Urine 191.3 (H) 0.0 - 30.0 mg/g [facility] Microalbumin [facility] Specimen Urine - Voided, urine Performing Organization Address [facility] one Number [facility] [address] [place] [address] * Hemoglobin A1C (01/05/2019 9:56 AM CDT) Hemoglobin A1c 13.5 (H) 4.3 - 6.1 % [facility] Estimated 341 (H) 70 - 110 mg/dL [facility] Average Glucose LABOR[facility]ORY Specimen Blood Performing Organization Address [facility] one Number [facility] [address] [place] [address] [phone] * Comprehensive Metabolic Panel (01/05/2019 9:56 AM [...] [facility] Specimen Blood Performing Organization Address [facility] one Number [facility] [address] [place] [address] [phone] * CCP Anitbodies IgG & IgA (01/05/2019 9:56 AM CDT) [facility] CCP Antibodies 9 0 - 19 units [facility] IgG/IgA Comment: Negative <20 Weak positive 20 - 39 Moderate positive 40 - 59 Strong positive >59 Specimen Blood Narrative Performed At Performed at: 01 - [facility] [address] [place] [id number] Awning Craftsperson: Enid Villatoro MD, Phone : [phone] Performing Organization Address [facility] one Number [facility] [address] [place] [address] * BNP [B-Type Natriuretic Peptide] (01/05/2019 9:56 AM CDT) [facility] B Natriuretic 47 <=100 pg/mL [facility] Peptide (BNP) LABORATORY Specimen Blood Performing Organization Address [facility] one Number [facility] [address] [place] [address] [phone] * TSH [Thyroid Stimulating Hormone] (01/05/2019 9:56 AM CDT) [facility] TSH 2.34 0.57 - 3.74 uIU/mL [facility] Comment: LABORATORY If , please see the following reference ranges (not verified by lab): 1st Trimester: 0.05 -3.70 uIU/mL 2nd Trimester: 0.31 -4.35 uIU/mL 3rd Trimester: 0.41 - 5.18 uIU/mL Specimen Blood Performing Organization Address [facility] one Number [facility] [address] [place] [address] * Vitamin B12 (01/05/2019 9:56 AM CDT) [facility] Vitamin B12 427 See comment pg/mL [facility] Comment: [facility] Normal: 180-914 pg/mL Intermittent: 145-180 pg/mL Deficient: <=145.0 pg/mL Specimen Blood Performing Organization Address [facility] one Number [facility] [address] [place] [address] [phone] * SED Rate (01/05/2019 9:56 AM CDT) Sed Rate 57 (H) 0-<30 mm/Hr [facility] Specimen Blood Performing Organization Address [facility] one Number [facility] [address] [place] [address] * Ra Factor (01/05/2019 9:56 AM CDT) RA <10 <14 IU/mL [facility] Specimen Blood Performing Organization Address [facility] one Number [facility] [address] [place] [address] [phone] * Lipid Profile (01/05/2019 9:56 AM CDT) Cholesterol 144.0 <=200.0 mg/dL [facility] Triglyceride 132 <150 mg/dL [facility] HDL 51.0 See Reference Range [facility] Narrative. mg/dL LABORATORY LDL 67 <100 mg/dL [facility] Comment: LAB[facility] Optimal: < 100.0 mg/dL Near Optimal: 120-129 mg/dL Borderline: 130-159 mg/dL High: 160-189 mg/dL Very High: >=190 mg/dL Patient Yes [facility] Fasting? LABORATORY Specimen Blood Performing Organization Address [facility] one Number [facility] [address] [place] [address] * OPHTHALMOLOGY RETINAL SCAN (01/05/2019 9:40 AM [...] At Retinal Study Result for BERNARDO SHERIDAN JERRY, a 68 y/o, F (: [phone], ) presented to [facility] on 01-05-2019 for a retinal imaging study of the left and r ight eyes. Based on the findings of the study, the following is recommended for BERNARDO SHERIDAN Other Suspected Condition Found: Refer to [facility], next available appointment. For Follow-up at [facility]: The patient can be scheduled into any [facility] that has an ope n booking by calling the appointment center. Interpreting Provider's Comments: No comments provided Right Eye Findings: Negative for Diabetic Retinopathy. Other: Suspected Cataract Left Eye Findings: Negative for Diabetic Retinopathy. Other: Suspected Cataract This result was electronically signed Pete Lopez MD, , Taxonomy: [id number] on 01-05-2019 04:1 1:31 [facility] time. NOTE: Any pathology noted on this david betic retinal evaluation should be confirmed by an appropriate ophthalmic examination. Performing Organization Address City/State/Zipcode Ph one Number [place] after 01/04/2019 Insurance Type Payer Benefit Subscriber ID Effective Phone Address Plan / Dates Group [facility] SELF-PAY SELF-PAY xxxxxx 2018- [phone] [id number] [place] [address]
--- OUTSIDE RECORDS SUMMARY | 2020-01-05 23:53 | XMS REPORT | Continuity of Care Document ---
Author Author [facility] t Organization [facility] Address [address] [place] [address] Phone Unavailable Care Team Providers Care Literacy Specialist Name Role Phone NONSTAFF PCP Unavailable Mya Walsh MD, Tari Mcmullen Attphys [phone] Delmi SALCIDO, Camilla Jordan Attphys Unavailable Xuan RN, Santa Attphys Unavailable Hitesh DO, Iveth Attphys Joel LD, Jailyn Attphys Unavailable Jeremy LD, Urszula Attphys Unavailable Elaine VUONG, Devante Attphys [phone] Thomas SALCIDO, Cristina Mitchell Attphys Unavailable Honey SALCIDO, Gi Tim Attphys Unavailable Cheikh Chowdary Attphys Unavailable EDIS JOEL Attphys Unavailable EDIS JOEL Admphys Unavailable Payers Payer Name Policy Type Policy Number Effective Date Expiration Date [facility] [id number] [id number] [place] [address] xxxxxx 2018 00:00:00 2028 2 3:59:59 [facility] Medicare A & B [id number] [facility] Cdc Review Covid19 [id number] [facility] Problems Condition Name Condition Details Condition Category Status Onset Date Resolution Date Last Treatment Date Treating Clinician Comments Source CKD (chronic kidney disease) stage 3, GFR 30-59 ml/min - GFR in 30s CKD (chronic kidney disease) stage 3, GFR 30-59 ml/min- GFR in 30s Disease Activ e 2019-11-14 00:00:00 [facility] Hyponatremia Hyponatremia Disease Active 2018-04-18 00:00:00 [facility] Inadequately controlled diabetes mellitus Inadequately controlled diabetes mellitus Disease Active 2017-01-12 00:00:00 [facility] Pain in joints Pain in joints Disease Active 2016-12-15 00:00:00 [facility] Essential hypertension Essential hypertension Disease Active 2015-06-06 00:00:00 [facility] BMI 35.0-35.9,adult BMI 35.0-35.9,adult Disease Active 2014-05-11 00:00 :00 [facility] Hypertension Hypertension Disease Active 2013-09-26 00:00:00 [facility] Diabetes mellitus Diabetes mellitus Disease Active 2013-09-22 00:00:00 [facility] HLD (hyperlipidemia) HLD (hyperlipidemia) Disease Active 00:00:00 [facility] Anxiety state, unspecified Anxiety state, unspecified Disease Active 2007-09-14 00:00:00 [facility] Depression Depression Disease Active 2007-09-14 00:00:00 [facility] Acute renal failure Problem Active [facility] Back pain Problem Active [facility] Hyperglycemia Problem Active [facility] Hx of abnormal mammogram Hx of abnormal mammogram Disease Active [facility] Vitamin D insufficiency Vitamin D insufficiency Disease Active [facility] Allergies, Adverse Reactions, Alerts This patient has no known allergies or adverse reactions. Family History Family Member Diagnosis Comments Start Date Stop Date Source Natural mother Cancer [facility] Natural sister Cancer [facility] Social History Social Habit Start Date Stop Date Quantity Comments Source Alcohol Comment OCCASSIONAL /MONTHLY [facility] Sex Assigned [facility] Exposure to SARS-CoV-2 (event) Not sure [facility] Alcohol intake 2019-11-08 00:00:00 2019-11-08 00:00:00 Current drinker of alcohol (finding) [facility] History SDOH Food Worry 2016-12-15 00:00:00 2016-12-15 00:00:00 1 [facility] History SDOH Food Scarcity 2016-12-15 00:00:00 2016-12-15 00:00:00 1 [facility] Smoking Status Start Date Stop Date Source Never smoker [facility] Medications Ordered Medication Name Filled Medication Name Start Date Stop Da te Current Medication? Ordering Clinician Indication Dosage Frequency Signature (SIG) Comments Components Source piroxicam (FELDENE) 10 mg capsule 2020-01-05 00:00:00 Yes Left knee pain, unspecified chronicity 10mg QD Take 1 capsule by mouth daily. [facility] Cyclobenzaprine (FLEXERIL) 5 mg tablet 2 00:00:00 2021-01-04 23:59:00 Yes Left knee pain, unspecified chronicity 5mg Take 1 tablet by mouth 3 times daily as needed for Muscle Spasms. [facility] ibuprofen (MOTRIN) 600 mg tablet 2020-01-03 00:00:00 2020-01 00:00:00 No Pain in joint, multiple sites 600mg Take 1 tab let by mouth every 8 hours as needed for Pain. [facility] venlafaxine (EFFEXOR XR) 37.5 mg extended release capsule 2019-12-27 00:00:00 Yes Anxiety 37.5mg QD Take 1 capsule by mouth daily. [facility] atorvastatin (LIPITOR) 10 mg tablet 2019-12-26 00:00:00 Yes Mixed hyperlipidemia 10mg Take 1 tablet by paul th at bedtime nightly For cholesterol. [facility] insulin detemir U-100 (LEVEMIR FLEXTOUCH U-100 INSULN) 100 u nit/mL (3 mL) Pen 2019-11-21 00:00:00 Yes Inadequately controlled diabet es mellitus 15U QD Inject 15 Units under the skin daily[facility] lanc[facility] 28 gauge 2019-11-15 00:00:00 Yes Inadequately controlled diabetes mellitus 1{each} Check blood glucose 3 times daily [facility] linaGLIPtin (TRADJENTA) 5 mg tablet 2019-11-14 00:00:00 Yes Inadequately controlled diabetes mellitus 5mg QD Take 1 tablet by mouth daily. [facility] pen needle, diabetic 31 gauge x 3/16" needles 2019-11-14 00: 00:00 Yes Inadequately controlled diabetes mellitus Inject under the skin 3 times daily. [facility] blood glucose test strips 2019-11-14 00:00:00 Yes Inadequately controlled diabetes mellitus 1{each} 1 Each by MISCELLANEOUS route 3 times da chani. [facility] insulin aspart U-100 (NOVOLOG FLEXPEN) 100 unit/mL (3 mL) pe n 2019-11-14 00:00:00 Yes Inadequately controlled diabetes mellitu s Inject under skin - three times before meals - inject 4 units if sugar is 250-299; 6 units if sugar is 300-399 ; 8 units if sugars are 400 to 499 ; call if sugar more than 500. [facility] lancets 2019-11-14 00:00:00 2019-11-15 00:00:00 No Inadequately controlled diabetes mellitus 1{each} 1 Each 3 times daily. [facility] tropicamide (MYDRIACYL) 0.5 % ophthalmic solution 2019-11-14 00:00:00 2019-11-14 23:59:00 No Inadequately controlled diabetes melli tus 1[drp] Instill 1 Drop in each eye once as needed for up to 1 dose (for poor retina scan image). [facility] amLODIPine (NORVASC) 5 mg tablet 2019-11-08 00:00:00 Yes Essential hypertension 5mg QD Take 1 tablet by mouth daily. [facility] blood glucose meter (PRECISION XTRA GLUCOMETER) 2019-11-08 0 0:00:00 Yes Type 2 diabetes mellitus with complication, without long-term current use of insulin Use as directed.. [facility] blood glucose (PRECISION XTRA TEST STRIPS) test strips 2019-11-08 00:00:00 Yes Type 2 diabetes mellitus wit h complication, without long-term current use of insulin Use 2 times weekly ( once per day on Wed,) to test blood sugar. [facility] lancets 28 gauge 2019-11-08 00:00:00 Yes Type 2 diabetes mellitus with complication, without long-term current use of insulin Use 2 times weekly as directed. [facility] Miscellaneous Medical Supply Misc 2019-11-08 00:00:00 Yes Essential hypertension by Misc.(Non-Drug; Combo Route) route BP mach ine. [facility] glipiZIDE (GLUCOTROL) 5 mg tablet 2019-11-08 00:00:00 2019 00:00:00 No Type 2 diabetes mellitus with complicati on, without long-term current use of insulin 5mg QD Take 1 tablet by mouth daily. [facility] Glipizide Glipizide 2019-10-29 17:52:00 Yes 5 Daily [facility] Lidocaine Patch Lidocaine Patch 2019-10-29 17:52:00 Yes 1 Daily [facility] venlafaxine (EFFEXOR XR) 37.5 mg extended release capsule 2019-08-03 00:00:00 2019-12-25 00:00:00 No Anxiety 37.5mg QD Take 1 capsule by mo [facility] daily. [facility] atorvastatin (LIPITOR) 10 mg tablet 2019-07-26 00:00:0 0 2019-12-25 00:00:00 No Mixed hyperlipidemia 10mg Take 1 tablet by mouth at bedtime nightly For cholesterol. [facility] pioglitazone (ACTOS) 15 mg tablet 2019-07-26 00:00:00 2019 00:00:00 No Type 2 diabetes mellitus with complicati on, without long-term current use of insulin 15mg QD Take 1 tablet by mouth daily. [facility] glyBURIDE-metFORMIN (GLUCOVANCE) 5-500 mg per tablet 2019-07-26 00:00:00 2019-11-08 00:00:00 No Type 2 diabetes cristopher itus with complication, without long-term current use of insulin 2{tbl} Take 2 tablets by mouth 2 times daily (with meals) For diabetes.. [facility] lisinopriL-hydrochlorothiazide (ZESTORETIC) 20-25 mg per tab let 2019-07-26 00:00:00 2019-11-08 00:00:00 No Essential hypertension 1{tbl} QD Take 1 tablet by mouth daily. [facility] ibuprofen (MOTRIN) 600 mg tablet 2019-07-26 00:00:00 2019-11 00:00:00 No Pain in joint, multiple sites 600mg Take 1 tab let by mouth every 8 hours as needed for Pain. [facility] lisinopriL-hydrochlorothiazide (ZESTORETIC) 20-25 mg per tab let 2019-06-22 00:00:00 2019-07-26 00:00:00 No Essential hypertension 1{tbl} QD Take 1 tablet by mouth daily. [facility] glyBURIDE-metFORMIN (GLUCOVANCE) 5-500 mg per tablet 2019-06-22 00:00:00 2019-07-26 00:00:00 No Type 2 diabetes cristopher itus with complication, without long-term current use of insulin 2{tbl} Take 2 tablets by mouth 2 times daily (with meals) For diabetes.. [facility] venlafaxine (EFFEXOR XR) 37.5 mg extended release capsule 2019-01-05 00:00:00 2019-08-03 00:00:00 No Anxiety 37.5mg QD Take 1 capsule by mo ut daily. [facility] pioglitazone (ACTOS) 15 mg tablet 2019-01-05 00:00:00 2019 00:00:00 No Type 2 diabetes mellitus with complicati on, without long-term current use of insulin 15mg QD Take 1 tablet by mouth daily. [facility] atorvastatin (LIPITOR) 10 mg tablet 2019-01-05 00:00:0 0 2019-07-26 00:00:00 No Mixed hyperlipidemia 10mg Take 1 tablet by mouth at bedtime nightly For cholesterol. [facility] naproxen (NAPROSYN) 500 mg tablet 2019-01-05 00:00:00 2019 00:00:00 No Pain in joint, multiple sites 500mg Ta ke 1 tablet by mouth 2 times daily (with meals). [facility] glyBURIDE-metFORMIN (GLUCOVANCE) 5-500 mg per tablet 2019-01-05 00:00:00 2019-06-22 00:00:00 No Type 2 diabetes cristopher itus with complication, without long-term current use of insulin 2{tbl} Take 2 tablets by mouth 2 times daily (with meals) For diabetes.. [facility] lisinopril-hydrochlorothiazide (ZESTORETIC) 20-25 mg per tab let 2019-01-05 00:00:00 2019-06-22 00:00:00 No Essential hypertension 1{tbl} QD Take 1 tablet by mouth daily. [facility] lisinopril (PRINIVIL, ZESTRIL) 40 mg tablet 2018 00:00:00 2019-01-05 00:00:00 No Essential hypertension 40mg QD Ta ke 1 tablet by mouth daily For hypertension.. [facility] tropicamide (MYDRIACYL) 0.5 % ophthalmic solution 2019-01-05 00:00:00 2019-01-05 23:59:00 No Type 2 diabetes cristopher itus with complication, without long-term current use of insulin 1[drp] Instill 1 Drop in each eye once as needed for up to 1 dose (for poor retina scan image). [facility] citalopram (CELEXA) 20 mg tablet 2019-01-05 00:00:00 2019-01 00:00:00 No Mixed hyperlipidemia 20mg QD Take 1 tablet by mo uth daily For depression/anxiety. [facility] pioglitazone (ACTOS) 15 mg tablet 2019-01-04 00:00:00 2018 00:00:00 No Type 2 diabetes mellitus with complicati on, without long-term current use of insulin 15mg QD Take 1 tablet by mouth daily Needs appointment with PCP. [facility] glyBURIDE-metFORMIN (GLUCOVANCE) 5-500 mg per tablet 2019-01-04 00:00:00 2019-01-05 00:00:00 No Type 2 diabetes cristopher itus with complication, without long-term current use of insulin 2{tbl} Take 2 tablets by mouth 2 times daily (with meals) For diabetes. Needs appointment with PCP. [facility] lisinopril (PRINIVIL, ZESTRIL) 10 mg tablet 2018 00:00:00 2019-01-05 00:00:00 No Essential hypertension 20mg QD Ta ke 2 tablets by mouth daily For hypertension.. [facility] atorvastatin (LIPITOR) 10 mg tablet 2019-01-04 00:00:0 0 2019-01-05 00:00:00 No Mixed hyperlipidemia 10mg Take 1 tablet by mouth at bedtime nightly For cholesterol. [facility] glyBURIDE-metFORMIN (GLUCOVANCE) 5-500 mg per tablet 2018-09-08 00:00:00 2019-01-04 00:00:00 No Type 2 diabetes cristopher itus with complication, without long-term current use of insulin 2{tbl} Take 2 tablets by mouth 2 times daily (with meals) For diabetes. [facility] pioglitazone (ACTOS) 15 mg tablet 2018-09-08 00:00:00 2018 00:00:00 No Type 2 diabetes mellitus with complicati on, without long-term current use of insulin 15mg QD Take 1 tablet by mouth daily For diabetes. [facility] tropicamide (MYDRIACYL) 0.5 % ophthalmic solution 2018-08-24 00:00:00 2019-02-20 23:59:00 No Type 2 diabetes cristopher itus without complication, without long-term current use of insulin 1[drp] Instill 1 Drop in each eye once as needed for up to 1 dose (for poor retina scan image). [facility] lisinopril (PRINIVIL, ZESTRIL) 10 mg tablet 2018 00:00:00 2019-01-04 00:00:00 No Essential hypertension 20mg QD Ta ke 2 tablets by mouth daily For hypertension.. [facility] naproxen (NAPROSYN) 500 mg tablet 2018-05-30 00:00:00 2018 00:00:00 No Muscle pain 500mg Take 1 tablet by mouth 2 times daily ( with meals). [facility] citalopram (CELEXA) 20 mg tablet 2018-02-09 00:00:00 2019-01 00:00:00 No Mixed hyperlipidemia 20mg QD Take 1 tablet by mo [facility] daily For depression/anxiety. [facility] atorvastatin (LIPITOR) 10 mg tablet 2018-02-09 00:00:0 0 2019-01-04 00:00:00 No Mixed hyperlipidemia 10mg Take 1 tablet by mouth at bedtime nightly For cholesterol. [facility] blood glucose meter 2017-01-12 00:00:00 Yes Use as directed.. [facility] blood glucose (PRECISION XTRA TEST STRIPS) test strips 2017-01-12 00:00:00 Yes Use 2 times weekly (once per day on Wed,) to test blood sugar. [facility] lancets 28 gauge 2017-01-12 00:00:00 Yes Use 2 times weekly as directed. [facility] ibuprofen (MOTRIN) 800 mg tablet 2016-12-15 00:00:00 2019-07 00:00:00 No 800mg Take 1 tablet by paul every 8 hours as needed for Pain For joint pains as needed. Take with food. [facility] conjugated estrogens (PREMARIN) 0.625 mg/gram vaginal cream 2014-12-21 00:00:00 Yes Menopausal vaginal dryness .5g QD Insert 0.5 g vaginally daily. [facility] Glyburide Glyburide 2019-10-29 00:00:00 No 10 Twice A Day [facility] Hydrochlorothiazide Hydrochlorothiazide 2019-10-29 00:00:00 No 25 Daily [facility] Lisinopril (Prinivil) 20 Mg TABLET Lisinopril (Prinivil) 20 Mg T ABLET 2019-10-29 00:00:00 No 20 Daily [facility] Metformin Hcl Metformin Hcl 2019-10-29 00:00:00 No 500 Twice A Day [facility] Pioglitazone Hcl (Actos*) 15 Mg TABLET Pioglitazone Hcl (Actos*) 15 Mg TABLET 2019-10-29 00:00:00 No 15 Daily [facility] Immunizations Ordered Immunization Name Filled Immunization Name Date Status Comments Source Pneumoccoccal 2013-12-14 00:00:00 Completed [facility] Vital Signs Vital Name Observation Time Observation Value Comments Source Body Temperature 2019-11-13 16:21:00 97.7 [degF] [facility] Weight 2019-11-13 11:18:00 179 [lb_av] [facility] BMI (Body Mass Index) 2019-11-13 11:18:00 28.9 kg/m2 [facility] Weight 2019-11-04 08:31:00 179 [lb_av] [facility] BMI (Body Mass Index) 2019-11-04 08:31:00 28.9 kg/m2 [facility] Body Temperature 2019-10-29 16:31:00 99.4 [degF] [facility] BMI (Body Mass Index) 2019-10-29 00:10:00 28.9 kg/m2 [facility] Body Temperature 2019-10-27 11:23:00 98.0 [degF] [facility] BMI (Body Mass Index) 2019-10-27 00:22:00 28.9 kg/m2 [facility] Weight 2019-10-25 13:53:00 179 [lb_av] [facility] Systolic blood pressure 2019-01-05 08:23:00 177 mm[Hg] [facility] Diastolic blood pressure 2019-01-05 08:23:00 93 mm[Hg] [facility] Heart rate 2019-01-05 08:23:00 88 /min [facility] Body temperature 2019-01-05 08:23:00 36.89 Soumya Arthur [facility] Respiratory rate 2019-01-05 08:23:00 18 /min [facility] Body height 2019-01-05 08:23:00 165.1 cm Werner jean Body weight 2019-01-05 08:23:00 97.977 kg [facility] BMI 2019-01-05 08:23:00 35.94 kg/m2 [facility] Oxygen saturation in Arterial blood by Pulse oximetry 2018-04 08:23:00 95 /min [facility] Procedures Procedure Date / Time Performed Performing Clinician Sour e Ultrasound, renal 2019-10-26 00:00:00 [facility] [place] CT of abdomen and pelvis without contrast 2019-10-25 00:00:00 [facility] HEMOGLOBIN A1C 2019-01-05 09:56:00 Iveth Proctor [facility] COMPREHENSIVE METABOLIC PANEL 2019-01-05 09:56:00 Hitesh [facility] CBC/DIFF 2019-01-05 09:56:00 Iveth Proctor [facility] LIPID PROFILE 2019-01-05 09:56:00 Iveth Proctor [facility] MICROALBUMIN / CREATININE URINE RATIO 2019-01-05 09:56:00 Hitesh [facility] THYROID STIMULATING HORMONE (TSH) 2019-01-05 09:56:00 Hitesh [facility] HIV AG/AB COMBO ROUTINE SCREENING 2019-01-05 09:56:00 Hitesh [facility] B-TYPE NATRIURETIC PEPTIDE (BNP) 2019-01-05 09:56:00 Hitesh [facility] CBC 2019-01-05 09:56:00 Iveth Proctor [facility] CCP IGG ABS 2019-01-05 09:56:00 Iveth Proctor [facility] RA FACTOR 2019-01-05 09:56:00 Iveth Proctor [facility] patel SED RATE 2019-01-05 09:56:00 Iveth Proctor [facility] VITAMIN B12 2019-01-05 09:56:00 [facility] OPHTHAL[facility]OLOGY RETINAL SCAN 2019-01-05 09:40:[address] [facility] Plan of Care Planned Activity Planned Date Details Comments Source Future Scheduled Test 2020-11-13 00:00:00 Urine screening fo r protein (procedure) [code = 258929603] [facility] Scheduled Test 2020-01-06 00:00:00 Hemoglobin A1c dexter surement (procedure) [code = 15152034] [facility] Scheduled Test 2020-01-06 00:00:00 DM Retinal Exam (Y early) [code = DM Retinal Exam (Yearly)] [facility] Scheduled Test 2019-08-25 00:00:00 Breast Cancer Scrn (Yearly) [code = Breast Cancer Scrn (Yearly)] [facility] Scheduled Test 2019-08-25 00:00:00 DM Foot Exam (Year ly) [code = DM Foot Exam (Yearly)] [facility] Scheduled Test 2018-01-12 00:00:00 Screening for eyal gnant neoplasm of colon (procedure) [code = 736582652] [facility] Type 2 Diabetes [facility] Encounters Start Date/Time End Date/Time Encounter Type Admission Type Attendi [facility] Care Department Encounter ID Source 2019-11-04 08:31:00 2019-11-04 11:24:00 Departed Emergency Room [facility] [id number] [facility] 2019-10-26 10:51:00 2019-10-29 19:11:00 Discharged Inpatient 1 EDIS JOEL [facility] [id number] [facility] 2019-03-10 00:00:00 2019-03-10 00:00:00 Outpatient [facility] [id number] [facility] 2019-02-23 00:00:00 2019-02-23 00:00:00 Outpatient [facility] [id number] [facility] 2019-02-13 00:00:00 2019-02-13 00:00:00 Outpatient [facility] [id number] [facility] 2019-01-17 00:00:00 2019-01-17 00:00:00 Outpatient [facility] [id number] [facility] 2019-01-06 00:00:00 2019-01-06 00:00:00 Outpatient [facility] [id number] [facility] 2019-01-05 09:40:39 2019-01-05 09:40:39 Outpatient [facility] [id number] [facility] 2019-01-05 09:30:02 2019-01-05 09:30:02 Outpatient [facility] [id number] [facility] 2019-01-05 08:23:12 2019-01-05 08:23:12 Outpatient [facility] [id number] [facility] 2019-01-05 00:00:00 2019-01-05 00:00:00 Outpatient [facility] [id number] [facility] 2018-12-14 00:00:00 2018-12-14 00:00:00 Outpatient [facility] [id number] [facility] 2018-11-21 00:00:00 2018-11-21 00:00:00 Outpatient [facility] [id number] [facility] 2018-11-21 00:00:00 2018-11-21 00:00:00 Outpatient [facility] [id number] [facility] 2018-10-19 00:00:00 2018-10-19 00:00:00 Outpatient [facility] [id number] [facility] 2018-10-19 00:00:00 2018-10-19 00:00:00 Outpatient [facility] [id number] [facility] 2018-10-19 00:00:00 2018-10-19 00:00:00 Outpatient [facility] [id number] [facility] 2018-09-21 00:00:00 2018-09-21 00:00:00 Outpatient [facility] [id number] [facility] 2018-09-21 00:00:00 2018-09-21 00:00:00 Outpatient [facility] [id number] [facility] 2018-08-24 14:57:45 2018-08-24 14:57:45 Outpatient [facility] [id number] [facility] 2018-08-24 14:41:12 2018-08-24 14:41:12 Outpatient [facility] [id number] [facility] 2018-08-24 14:37:31 2018-08-24 14:37:31 Outpatient [facility] [id number] [facility] 2018-08-24 13:40:11 2018-08-24 13:40:11 Outpatient [facility] [id number] [facility] 2018-06-23 00:00:00 2018-06-23 00:00:00 Outpatient [facility] [id number] [facility] 2018-05-19 00:00:00 2018-05-19 00:00:00 Outpatient [facility] [id number] [facility] 2018-04-15 12:24:00 2018-04-15 12:24:00 Outpatient [facility] [id number] [facility] 2018-02-15 00:00:00 2018-02-15 00:00:00 Outpatient [facility] [id number] [facility] 2018-02-08 00:00:00 2018-02-08 00:00:00 Outpatient [facility] [id number] [facility] 2018-01-21 00:00:00 2018-01-21 00:00:00 Outpatient [facility] [id number] [facility] 2017-07-22 14:10:20 2017-07-22 14:10:20 Outpatient [facility] [id number] [facility] 2017-07-22 00:00:00 2017-07-22 00:00:00 Outpatient [facility] [id number] [facility] 2017-07-12 00:00:00 2017-07-12 00:00:00 Outpatient [facility] [id number] [facility] 2017-05-17 00:00:00 2017-05-17 00:00:00 Outpatient [facility] [id number] [facility] 2017-02-23 00:00:00 2017-02-23 00:00:00 Outpatient [facility] [id number] [facility] 2017-02-15 00:00:00 2017-02-15 00:00:00 Outpatient [facility] [id number] [facility] 2017-02-09 00:00:00 2017-02-09 00:00:00 Outpatient [facility] [id number] [facility] 2017-01-27 00:00:00 2017-01-27 00:00:00 Outpatient [facility] [id number] [facility] 2017-01-19 00:00:00 2017-01-19 00:00:00 Outpatient [facility] [id number] [facility] 2017-01-12 13:17:03 2017-01-12 13:17:03 Outpatient [facility] [id number] [facility] 2017-01-12 10:54:01 2017-01-12 10:54:01 Outpatient [facility] [id number] [facility] 2017-01-12 08:54:08 2017-01-12 08:54:08 Outpatient [facility] [id number] [facility] 2017-01-12 08:44:20 2017-01-12 08:44:20 Outpatient [facility] [id number] [facility] 2017-01-11 00:00:00 2017-01-11 00:00:00 Outpatient [facility] [id number] [facility] 2016-12-15 10:22:38 2016-12-15 10:22:38 Outpatient [facility] [id number] [facility] 2016-12-08 09:52:46 2016-12-08 09:52:46 Outpatient [facility] [id number] [facility] 2016-11-30 00:00:00 2016-11-30 00:00:00 Outpatient [facility] [id number] [facility] 2016-11-23 00:00:00 2016-11-23 00:00:00 Outpatient [facility] [id number] [facility] 2016-10-19 00:00:00 2016-10-19 00:00:00 Outpatient [facility] [id number] [facility] Results Test Description Test Time Test Comments Results Result Comments Source Serum or plasma sodium measurement (moles/volume) 2019-11-13 15:00:00 Test Item Sodium Level (test code = 2951-2) 135 136-[facility]-11-13 15:00:00* Test Item Value Reference Range Interpretation Comments Potassium Level (test code = 2823-3) 3.5 3.5-5.1 [facility] chloride [facility] (moles/volume)2019-11-13 15:00:00* Test Item Value Reference Range Interpretation Comments Chloride Level (test code = 2075-0) 99 98-107 [facility] carbon dioxide, total measurement (moles/volume)2019-11-13 15:00:00* Test Item Value Reference Range Interpretation Comments Carbon Dioxide Level (test code = 2028-9) 21 22-29 [facility] plasma anion tdd7409-53-07 15:00:00* Test Item Value Reference Range Interpretation Comments Anion Gap (test code = 05839-6) 18.5 8-16 [facility] plasma urea nitrogen measurement (mass/volume)2019-11-13 15:00:00* Test Item Value Reference Range Interpretation Comments Blood Urea Nitrogen (test code = 3094-0) 23 7-26 [facility] creatinine measurement (mass/volume)2019-11-13 15:00:00* Test Item Value Reference Range Interpretation Comments Creatinine (test code = 2160-0) 1.36 0.57-1.11 [facility] urea nitrogen/creatinine mass uhdfj6323-43-35 15:00:00* Test Item Value Reference Range Interpretation Comments BUN/Creatinine Ratio (test code = 3097-3) 17 6-25 [facility] CenterEstimated glomerular filtration rate (GFR) zxarmpokdtujc6530-15-03 15:00:00* Test Item Value Reference Range Interpretation Comments Estimat Glomerular Filtration Rate (test code = 729332463) 39 >60 Ranges were taken from the National Kidney Disease Education Program and the [facility] [employer] literature.Reference ranges:60 or greater: Cojouq82-13 ( for 3 consecutive months): Chronic kidney disease 15 or less: Kidney failureTexoma Medical CenterGlucose vcwknruijdq0764-99-35 15:00:00* Test Item Value Reference Range Interpretation Comments Glucose Level (test code = YOE0593) 319 74-118 [facility] calcium measurement (mass/volume)2019-11-13 15:00:00* Test Item Value Reference Range Interpretation Comments Calcium Level (test code = 13836-9) 9.8 8.4-10.2 [facility] CenterCapillary blood glucose measurement by glucometer (mass/volume)2019-11-13 14:26:00* Test Item Value Reference Range Interpretation Comments Bedside Glucose (test code = 31195-0) 362 70-120 Meter ID: [id number] Medical CenterCHEST SINGLE (PORTABLE)2019-11-13 13:23:00 [facility] [address] [address] Patient Name: YARELI BOCANEGRA MR #: [id number] : 1950 Age/Sex: 69/F Req #: [id number] Adm Physician: Ordered by: Lazaro Chowdary MD Report #: [id number] Location: ER Room/Bed: Procedure: [id number] DX/SIMON ST SINGLE (PORTABLE) Exam Date: 11/13/19 Exam Time: 1309 REPORT STATUS: Signed EXAMI NATION: CHEST SINGLE (PORTABLE) INDICATION: Fatigue, hyperglycemia COMPARISON: CT abdomen and pelvis of 10/25/2019 FINDINGS: LINES/ TUBES:EKG leads overlie the chest. LUNGS:The lungs are well-inflated. No fo marilin consolidation or pulmonary edema. Mild right basilar subsegmental atelecta sis. PLEURA:No pleural effusion or pneumothorax. MEDIASTINUM:The cardi omediastinal silhouette appears normal in size and shape. BONES/SOFT TISSUE S:No acute osseous injury. ABDOMEN:No free air under the diaphragm. IMPRESSION: Mild right basilar subsegmental atelectasis. No focal pneumonia or pulmonary edema. Signed by: Aarti Hawkins MD on 11/13/2019 1:24 PM Dictated By: AARTI HAWKINS MD 1324 Transcribed By: NABOR on 11/13/19 1324 COPY TO: LAZARO CHOWDARY MD Arterial blood pH hedusyihkac6659-16-80 12:06:00* Test Item Value Reference Range Interpretation Comments Arterial Blood pH (test code = 2744-1) 7.39 7.35-7.45 [facility] CenterpCO2 ZdbA6964-84-87 12:06:00* Test Item Value Reference Range Interpretation Comments Arterial Blood Partial Pressure CO2 (test code = 2018-11) 35 35-45 [facility] CenterpCO2 KmnA2053-26-51 12:06:00* Test Item Value Reference Range Interpretation Comments Arterial Blood Partial Pressure O2 (test code = 2018-11) 100 80-105 [facility] CenterArterial blood bicarbonate measurement (moles/volume)2019-11-13 12:06:00* Test Item Value Reference Range Interpretation Comments Arterial Blood HCO3 (test code = 1960-4) 21 22-26 [facility] CenterArterial cord blood carbon dioxide, total measurement by calculation (moles/volume)2019-11-13 12:06:00* Test Item Value Reference Range Interpretation Comments Arterial Blood Total CO2 (test code = 54041-8) 22 [facility] CenterArterial blood base excess by calculation 2019-11-13 12:06:00* Test Item Value Reference Range Interpretation Comments Arterial Blood Base Excess (test code = 1925-7) -4.0 -2-3 [facility] CenterArterial blood oxygen saturation jhpjaazwbru4449-61-39 12:06:00* Test Item Value Reference Range Interpretation Comments Arterial Blood Oxygen Saturation (test code = 2708-6) 98.0 95-98 [facility] CenterFluoroscopic procedure less than one hour dstogjfx1625-80-56 12:06:00* Test Item Value Reference Range Interpretation Comments FiO2 (test code = FiO2) 21 FLAVIO FROM RIGHT RADIALPT ON ROOM AIR [facility] Blood leukocytes automated count (number/volume)2019-11-13 11:27:00* Test Item Value Reference Range Interpretation Comments White Blood Count (test code = 6690-2) 9.64 4.8-10.8 [facility] CenterBlood erythrocytes automated count (number/volume)2019-11-13 11:27:00* Test Item Value Reference Range Interpretation Comments Red Blood Count (test code = 789-8) 4.56 3.6-5.1 [facility] CenterBlood hemoglobin measurement (moles/volume)2019-11-13 11:27:00* Test Item Value Reference Range Interpretation Comments Hemoglobin (test code = 48689-8) 12.8 12.0-16.0 [facility] CenterAutomated blood hematocrit (volume fraction)2019-11-13 11:27:00* Test Item Value Reference Range Interpretation Comments Hematocrit (test code = 4544-3) 40.8 34.2-44.1 [facility] CenterAutomated erythrocyte mean corpuscular pkjkxi9963-09-46 11:27:00* Test Item Value Reference Range Interpretation Comments Mean Corpuscular Volume (test code = 787-2) 89.5 81-99 [facility] CenterAutomated erythrocyte mean corpuscular hemoglobin (mass per erythrocyte)2019-11-13 11:27:00* Test Item Value Reference Range Interpretation Comments Mean Corpuscular Hemoglobin (test code = 785-6) 28.1 28-32 [facility] CenterAutomated erythrocyte mean corpuscular hemoglobin concentration measurement (mass/volume)2019-11-13 11:27:00* Test Item Value Reference Range Interpretation Comments Mean Corpuscular Hemoglobin Concent (test code = 786-4) 31.4 31-35 [facility] CenterRDW GkgZx-Wcc5623-12-10 11:27:00* Test Item Value Reference Range Interpretation Comments Red Cell Distribution Width (test code = 54248-0) 13.3 11.7 -14.4 [facility] CenterAutomated blood platelet count (count/volume)2019-11-13 11:27:00* Test Item Value Reference Range Interpretation Comments Platelet Count (test code = 777-3) 359 140-360 [facility] CenterAutomated blood segmented neutrophil count as percentage of total urqzvxfulj3279-07-95 11:27:00* Test Item Value Reference Range Interpretation Comments Neutrophils (%) (Auto) (test code = 63328-9) 60.1 38.7-80.0 [facility] CenterAutomated blood lymphocyte count as percentage ot total xnkjyyhmvx4122-71-42 11:27:00* Test Item Value Reference Range Interpretation Comments Lymphocytes (%) (Auto) (test code = 736-9) 25.0 18.0-39.1 [facility] CenterAutomated blood monocyte count as percentage of total sxicjcokrl5482-28-54 11:27:00* Test Item Value Reference Range Interpretation Comments Monocytes (%) (Auto) (test code = 5905-5) 6.7 4.4-11.3 [facility] CenterAutomated blood eosinophil count as percentage of total zitifpgtfd0603-05-55 11:27:00* Test Item Value Reference Range Interpretation Comments Eosinophils (%) (Auto) (test code = 713-8) 7.2 0.0-6.0 [facility] CenterAutomated blood basophil count as percentage of total lausfugamk3235-37-41 11:27:00* Test Item Value Reference Range Interpretation Comments Basophils (%) (Auto) (test code = 706-2) 0.7 0.0-1.0 [facility] CenterFluoroscopic procedure less than one hour dkkjzfnx9095-31-80 11:27:00* Test Item Value Reference Range Interpretation Comments IM GRANULOCYTES % (test code = IM GRANULOCYTES %) 0.3 0.0- 1.0 [facility] CenterAutomated blood neutrophil count 2019-11-13 11:27:00* Test Item Value Reference Range Interpretation Comments Neutrophils # (Auto) (test code = 751-8) 5.8 2.1-6.9 [facility] CenterBlood lymphocytes count (number/volume) 2019-11-13 11:27:00* Test Item Value Reference Range Interpretation Comments Lymphocytes # (Auto) (test code = 31570-1) 2.4 1.0-3.2 [facility] CenterBlood monocytes automated count (number/volume)2019-11-13 11:27:00* Test Item Value Reference Range Interpretation Comments Monocytes # (Auto) (test code = 742-7) 0.7 0.2-0.8 [facility] CenterAutomated blood eosinophil count 2019-11-13 11:27:00* Test Item Value Reference Range Interpretation Comments Eosinophils # (Auto) (test code = 711-2) 0.7 0.0-0.4 [facility] CenterAutomated blood basophil count (count/volume)2019-11-13 11:27:00* Test Item Value Reference Range Interpretation Comments Basophils # (Auto) (test code = 704-7) 0.1 0.0-0.1 [facility] CenterFluoroscopic procedure less than one hour wpzewais1022-87-33 11:27:00* Test Item Value Reference Range Interpretation Comments Absolute Immature Granulocyte (auto (ирина t code = Absolute Immature Granulocyte (auto) 0.03 0-0.1 [facility] CenterFluoroscopic procedure less than one hour orwdrwic5370-66-05 11:27:00* Test Item Value Reference Range Interpretation Comments Differential Total Cells Counted (test code = Evaristo tial Total Cells Counted) 100 [facility]100 leukocytes 2019-11-13 11:27:00* Test Item Value Reference Range Interpretation Comments Neutrophils % (Manual) (test code = 81826-2) 70 40-74 [facility]ual [facility] lymphocytes/100 leukocytes 2019-11-13 11:27:00* Test Item Value Reference Range Interpretation Comments Lymphocytes % (Manual) (test code = 737-7) 19 19-48 [facility] monocytes/100 leukocytes 2019-11-13 11:27:00* Test Item Value Reference Range Interpretation Comments Monocytes % (Manual) (test code = 744-3) 7 3.4-9.0 [facility] blood eosinophil count as percentage of total gkbjtcmwiu3234-21-26 11:27:00* Test Item Value Reference Range Interpretation Comments Eosinophils % (Manual) (test code = 714-6) 2 0-7 [facility] CenterBlood lymphocytes variant count (number/volume)2019-11-13 11:27:00* Test Item Value Reference Range Interpretation Comments Reactive Lymphocytes (test code = 99052-0) 2 [facility] CenterBlood platelets count by estimate (number/volume)2019-11-13 11:27:00* Test Item Value Reference Range Interpretation Comments Platelet Estimate (test code = 14255-2) ADEQUATE [facility] CenterPlatelet dsxgcfzpzi9776-69-43 11:27:00* Test Item Value Reference Range Interpretation Comments Platelet Morphology Comment (test code = 35408-1) NORMAL [facility] CenterRBC asvuwulsll7857-47-65 11:27:00* Test Item Value Reference Range Interpretation Comments Red Cell Morphology Comment (test code = 6742-1) NORMAL [facility] total bilirubin measurement (mass/volume)2019-11-13 11:27:00* Test Item Value Reference Range Interpretation Comments Total Bilirubin (test code = 1975-2) 0.4 0.2-1.2 [facility] CenterFluoroscopic procedure less than one hour olxeooke3071-38-05 11:27:00* Test Item Value Reference Range Interpretation Comments Aspartate Amino Transf (AST/SGOT) (test code = Aspartate Amino Transf (AST/SGOT)) 12 5-34 [facility]er[facility] or plasma alanine aminotransferase measurement (enzymatic activity/volume)2019-11-13 11:27:00* Test Item Value Reference Range Interpretation Comments Alanine Aminotransferase (ALT/SGPT) (test code = 1742-6) 17 0-55 [facility] or plasma protein measurement (mass/volume)2019-11-13 11:27:00* Test Item Value Reference Range Interpretation Comments Total Protein (test code = 2885-2) 8.8 6.5-8.1 [facility] plasma albumin measurement (mass/volume)2019-11-13 11:27:00* Test Item Value Reference Range Interpretation Comments Albumin (test code = 1751-7) 4.2 3.5-5.0 [facility] CenterPlasma globulin measurement (mass/volume) 2019-11-13 11:27:00* Test Item Value Reference Range Interpretation Comments Globulin (test code = 76802-9) 4.6 2.3-3.5 [facility] plasma albumin/globulin mass bxgjr8764-45-44 11:27:00* Test Item Value Reference Range Interpretation Comments Albumin/Globulin Ratio (test code = 1759-0) 0.9 0.8-2.0 [facility] plasma alkaline phosphatase measurement (enzymatic activity/volume)2019-11-13 11:27:00* Test Item Value Reference Range Interpretation Comments Alkaline Phosphatase (test code = 6768-6) 80 40-150 [facility] CenterTroponin I measurement by highly sensitive enzyme qfaljkhfwyl9880-84-19 11:27:00* Test Item Value Reference Range Interpretation Comments Troponin I (test code = 38365-5) 0.019 0-0.300 [facility] CenterBlood leukocytes automated count (number/volume)2019-11-04 08:41:00* Test Item Value Reference Range Interpretation Comments White Blood Count (test code = 6690-2) 9.83 4.8-10.8 [facility] CenterBlood erythrocytes automated count (number/volume)2019-11-04 08:41:00* Test Item Value Reference Range Interpretation Comments Red Blood Count (test code = 789-8) 3.76 3.6-5.1 [facility] CenterBlood hemoglobin measurement (moles/volume)2019-11-04 08:41:00* Test Item Value Reference Range Interpretation Comments Hemoglobin (test code = 50199-0) 10.6 12.0-16.0 [facility] CenterAutomated blood hematocrit (volume fraction)2019-11-04 08:41:00* Test Item Value Reference Range Interpretation Comments Hematocrit (test code = 4544-3) 33.4 34.2-44.1 [facility] CenterAutomated erythrocyte mean corpuscular tzxikv0612-33-87 08:41:00* Test Item Value Reference Range Interpretation Comments Mean Corpuscular Volume (test code = 787-2) 88.8 81-99 [facility] CenterAutomated erythrocyte mean corpuscular hemoglobin (mass per erythrocyte)2019-11-04 08:41:00* Test Item Value Reference Range Interpretation Comments Mean Corpuscular Hemoglobin (test code = 785-6) 28.2 28-32 [facility] CenterAutomated erythrocyte mean corpuscular hemoglobin concentration measurement (mass/volume)2019-11-04 08:41:00* Test Item Value Reference Range Interpretation Comments Mean Corpuscular Hemoglobin Concent (test code = 786-4) 31.7 31-35 [facility] CenterRDW ZpdIj-Ndl2488-90-01 08:41:00* Test Item Value Reference Range Interpretation Comments Red Cell Distribution Width (test code = 75544-3) 12.9 11.7 -14.4 [facility] CenterAutomated blood platelet count (count/volume)2019-11-04 08:41:00* Test Item Value Reference Range Interpretation Comments Platelet Count (test code = 777-3) 445 140-360 [facility] CenterAutomated blood segmented neutrophil count as percentage of total ynflojjahs5246-71-31 08:41:00* Test Item Value Reference Range Interpretation Comments Neutrophils (%) (Auto) (test code = 52521-6) 69.1 38.7-80.0 [facility] CenterAutomated blood lymphocyte count as percentage ot total uvemnyplxu2388-95-97 08:41:00* Test Item Value Reference Range Interpretation Comments Lymphocytes (%) (Auto) (test code = 736-9) 20.5 18.0-39.1 [facility] CenterAutomated blood monocyte count as percentage of total xmhemjjixv5962-32-01 08:41:00* Test Item Value Reference Range Interpretation Comments Monocytes (%) (Auto) (test code = 5905-5) 8.9 4.4-11.3 [facility] CenterAutomated blood eosinophil count as percentage of total cwparjmynd8887-68-36 08:41:00* Test Item Value Reference Range Interpretation Comments Eosinophils (%) (Auto) (test code = 713-8) 0.1 0.0-6.0 [facility] CenterAutomated blood basophil count as percentage of total miohlehpmg0098-33-64 08:41:00* Test Item Value Reference Range Interpretation Comments Basophils (%) (Auto) (test code = 706-2) 0.7 0.0-1.0 [facility] CenterFluoroscopic procedure less than one hour cifpynwb5190-49-57 08:41:00* Test Item Value Reference Range Interpretation Comments IM GRANULOCYTES % (test code = IM GRANULOCYTES %) 0.7 0.0- 1.0 [facility] CenterAutomated blood neutrophil count 2019-11-04 08:41:00* Test Item Value Reference Range Interpretation Comments Neutrophils # (Auto) (test code = 751-8) 6.8 2.1-6.9 [facility] CenterBlood lymphocytes count (number/volume) 2019-11-04 08:41:00* Test Item Value Reference Range Interpretation Comments Lymphocytes # (Auto) (test code = 96100-9) 2.0 1.0-3.2 [facility] CenterBlood monocytes automated count (number/volume)2019-11-04 08:41:00* Test Item Value Reference Range Interpretation Comments Monocytes # (Auto) (test code = 742-7) 0.9 0.2-0.8 [facility] CenterAutomated blood eosinophil count 2019-11-04 08:41:00* Test Item Value Reference Range Interpretation Comments Eosinophils # (Auto) (test code = 711-2) 0.0 0.0-0.4 [facility] CenterAutomated blood basophil count (count/volume)2019-11-04 08:41:00* Test Item Value Reference Range Interpretation Comments Basophils # (Auto) (test code = 704-7) 0.1 0.0-0.1 [facility] CenterFluoroscopic procedure less than one hour lqvzcjeb8647-68-55 08:41:00* Test Item Value Reference Range Interpretation Comments Absolute Immature Granulocyte (auto (ирина t code = Absolute Immature Granulocyte (auto) 0.07 0-0.1 [facility] CenterUrine color ozsibudrapxgt5335-17-12 08:41:00* Test Item Value Reference Range Interpretation Comments Urine Color (test code = 5778-6) YELLOW YELLOW [facility] CenterUrine fibnvzs7058-80-50 08:41:00* Test Item Value Reference Range Interpretation Comments Urine Clarity (test code = 99624-0) CLEAR CLEAR [facility] Areapecific gravity of Urine by Test strip 2019-11-04 08:41:00* Test Item Value Reference Range Interpretation Comments Urine Specific Powers (test code = 5811-5) <=1.005 1.010-1.02 5 [facility] CenterUrine pH measurement by automated test awmod5476-91-78 08:41:00* Test Item Value Reference Range Interpretation Comments Urine pH (test code = 00293-2) 5 5-7 [facility] CenterUrine leukocyte esterase detection by sylhbygl5199-29-94 08:41:00* Test Item Value Reference Range Interpretation Comments Urine Leukocyte Esterase (test code = 5799-2) NEGATIVE NEGATIVE [facility] CenterUrine nitrite awrdygaty1547-78-45 08:41:00* Test Item Value Reference Range Interpretation Comments Urine Nitrite (test code = 55370-5) NEGATIVE NEGATIVE [facility] CenterUrine protein measurement by test strip (mass/volume)2019-11-04 08:41:00* Test Item Value Reference Range Interpretation Comments Urine Protein (test code = 5804-0) NEGATIVE NEGATIVE [facility] CenterUrine glucose edzpswivr4574-00-27 08:41:00* Test Item Value Reference Range Interpretation Comments Urine Glucose (UA) (test code = 2349-9) 2+ NEGATIVE [facility] CenterUrine ketones detection by automated test zpulw7294-22-72 08:41:00* Test Item Value Reference Range Interpretation Comments Urine Ketones (test code = 77538-3) NEGATIVE NEGATIVE [facility] CenterUrine urobilinogen measurement by test strip (mass/volume)2019-11-04 08:41:00* Test Item Value Reference Range Interpretation Comments Urine Urobilinogen (test code = 86936-5) 0.2 0.2-1 [facility] CenterUrine total bilirubin measurement (mass/volume)2019-11-04 08:41:00* Test Item Value Reference Range Interpretation Comments Urine Bilirubin (test code = 1978-6) NEGATIVE NEGATIVE [facility] CenterUrine erythrocytes kzqscmjjy9987-64-61 08:41:00* Test Item Value Reference Range Interpretation Comments Urine Blood (test code = 60496-7) NEGATIVE NEGATIVE [facility] CenterAutomated urine sediment leukocyte count by microscopy (number/high power field)2019-11-04 08:41:00* Test Item Value Reference Range Interpretation Comments Urine WBC (test code = 5821-4) 0-5 0-5 [facility] CenterErythrocytes detection in urine sediment by light gjtxpfjddf1513-42-61 08:41:00* Test Item Value Reference Range Interpretation Comments Urine RBC (test code = 51792-9) 0-5 0-5 [facility] CenterBacteria detection in urine sediment by light izosogclgt1675-89-33 08:41:00* Test Item Value Reference Range Interpretation Comments Urine Bacteria (test code = 12064-0) RARE NONE [facility] CenterEpithelial cells detection in urine sediment by light sesljqrksd6616-45-16 08:41:00* Test Item Value Reference Range Interpretation Comments Urine Epithelial Cells (test code = 89203-5) FEW NONE [facility] CenterUrine sodium measurement (moles/volume) 2019-11-04 08:41:00* Test Item Value Reference Range Interpretation Comments Urine Random Sodium (test code = 2955-3) 38 [facility]er[facility] or plasma sodium measurement (moles/volume)2019-11-04 08:41:00* Test Item Value Reference Range Interpretation Comments Sodium Level (test code = 2951-2) 134 136-145 [facility] Areaer[facility] or plasma potassium measurement (moles/volume)2019-11-04 08:41:00* Test Item Value Reference Range Interpretation Comments Potassium Level (test code = 2823-3) 3.8 3.5-5.1 [facility] Area[facility] or plasma chloride measurement (moles/volume)2019-11-04 08:41:00* Test Item Value Reference Range Interpretation Comments Chloride Level (test code = 2075-0) 99 98-107 [facility] Area[facility] or plasma carbon dioxide, total measurement (moles/volume)2019-11-04 08:41:00* Test Item Value Reference Range Interpretation Comments Carbon Dioxide Level (test code = 2028-9) 22 22-29 [facility] Areaer[facility] or plasma anion zqu9235-52-47 08:41:00* Test Item Value Reference Range Interpretation Comments Anion Gap (test code = 59503-2) 16.8 8-16 [facility] Areaer[facility] or plasma urea nitrogen measurement (mass/volume)2019-11-04 08:41:00* Test Item Value Reference Range Interpretation Comments Blood Urea Nitrogen (test code = 3094-0) 26 7-26 [facility] or plasma creatinine measurement (mass/volume)2019-11-04 08:41:00* Test Item Value Reference Range Interpretation Comments Creatinine (test code = 2160-0) 1.75 0.57-1.11 [facility] or plasma urea nitrogen/creatinine mass flamt7919-94-32 08:41:00* Test Item Value Reference Range Interpretation Comments BUN/Creatinine Ratio (test code = 3097-3) 15 6-25 [facility] CenterEstimated glomerular filtration rate (GFR) szpisnztxsfez8082-19-45 08:41:00* Test Item Value Reference Range Interpretation Comments Estimat Glomerular Filtration Rate (test code = 201795478) 29 >60 Ranges were taken from the National Kidney Disease Education Program and the [facility] Foundation literature.Reference ranges:60 or greater: Uglqcx79-82 ( for 3 consecutive months): Chronic kidney disease 15 or less: Kidney failureTexoma Medical CenterGlucose cobvxfbcytt6687-54-99 08:41:00* Test Item Value Reference Range Interpretation Comments Glucose Level (test code = ADH2738) 376 74-118 [facility] Area[facility] or plasma calcium measurement (mass/volume)2019-11-04 08:41:00* Test Item Value Reference Range Interpretation Comments Calcium Level (test code = 74423-9) 9.4 8.4-10.2 [facility] CenterOsmolality of Serum or Plasma by oooqlwkyxbt6257-09-19 08:41:00* Test Item Value Reference Range Interpretation Comments Serum Osmolality (test code = 26721-4) 288 278-305 [facility] or plasma total bilirubin measurement (mass/volume)2019-11-04 08:41:00* Test Item Value Reference Range Interpretation Comments Total Bilirubin (test code = 1975-2) 0.3 0.2-1.2 [facility] CenterFluoroscopic procedure less than one hour tosdctve3658-89-06 08:41:00* Test Item Value Reference Range Interpretation Comments Aspartate Amino Transf (AST/SGOT) (test code = Aspartate Amino Transf (AST/SGOT)) 12 5-34 [facility] Area[facility] or plasma alanine aminotransferase measurement (enzymatic activity/volume)2019-11-04 08:41:00* Test Item Value Reference Range Interpretation Comments Alanine Aminotransferase (ALT/SGPT) (test code = 1742-6) 21 0-55 [facility] plasma protein [facility] (mass/volume)2019-11-04 08:41:00* Test Item Value Reference Range Interpretation Comments Total Protein (test code = 2885-2) 7.7 6.5-8.1 [facility] plasma albumin measurement (mass/volume)2019-11-04 08:41:00* Test Item Value Reference Range Interpretation Comments Albumin (test code = 1751-7) 3.4 3.5-5.0 [facility] globulin measurement (mass/volume) 2019-11-04 08:41:00* Test Item Value Reference Range Interpretation Comments Globulin (test code = 31949-8) 4.3 2.3-3.5 [facility] albumin/globulin mass pgwtf2156-12-74 08:41:00* Test Item Value Reference Range Interpretation Comments Albumin/Globulin Ratio (test code = 1759-0) 0.8 0.8-2.0 [facility] plasma alkaline phosphatase measurement (enzymatic activity/volume)2019-11-04 08:41:00* Test Item Value Reference Range Interpretation Comments Alkaline Phosphatase (test code = 6768-6) 80 40-150 [facility] CenterU[facility] color vyzdcjqgubeko9236-76-50 08:41:00* Test Item Value Reference Range Interpretation Comments Urine Color (test code = 5778-6) YELLOW YELLOW [facility] CenterUrine cxmtzaa2885-10-81 08:41:00* Test Item Value Reference Range Interpretation Comments Urine Clarity (test code = 75038-4) CLEAR CLEAR [facility] Area[facility] gravity of Urine by Test strip 2019-11-04 08:41:00* Test Item Value Reference Range Interpretation Comments Urine Specific Powers (test code = 5811-5) <=1.005 1.010-1.02 5 [facility] pH measurement by automated test jkqik0939-39-64 08:41:00* Test Item Value Reference Range Interpretation Comments Urine pH (test code = 67404-1) 5 5-7 [facility] CenterU[facility] leukocyte esterase detection by bidpbtwq1251-26-87 08:41:00* Test Item Value Reference Range Interpretation Comments Urine Leukocyte Esterase (test code = 5799-2) NEGATIVE NEGATIVE [facility] CenterU[facility] nitrite nzbetfbwx6034-41-01 08:41:00* Test Item Value Reference Range Interpretation Comments Urine Nitrite (test code = 73029-9) NEGATIVE NEGATIVE [facility] protein measurement by test strip (mass/volume)2019-11-04 08:41:00* Test Item Value Reference Range Interpretation Comments Urine Protein (test code = 5804-0) NEGATIVE NEGATIVE [facility] CenterU[facility] glucose kdutghgml7832-02-58 08:41:00* Test Item Value Reference Range Interpretation Comments Urine Glucose (UA) (test code = 2349-9) 2+ NEGATIVE [facility] CenterUrine ketones detection by automated test atnqe8030-06-49 08:41:00* Test Item Value Reference Range Interpretation Comments Urine Ketones (test code = 03386-6) NEGATIVE NEGATIVE [facility] CenterUrine urobilinogen measurement by test strip (mass/volume)2019-11-04 08:41:00* Test Item Value Reference Range Interpretation Comments Urine Urobilinogen (test code = 18149-1) 0.2 0.2-1 [facility] CenterU[facility] total bilirubin measurement (mass/volume)2019-11-04 08:41:00* Test Item Value Reference Range Interpretation Comments Urine Bilirubin (test code = 1978-6) NEGATIVE NEGATIVE [facility] CenterU[facility] erythrocytes eurkfthaj4546-49-63 08:41:00* Test Item Value Reference Range Interpretation Comments Urine Blood (test code = 53208-7) NEGATIVE NEGATIVE [facility] CenterAutomated urine sediment leukocyte count by microscopy (number/high power field)2019-11-04 08:41:00* Test Item Value Reference Range Interpretation Comments Urine WBC (test code = 5821-4) 0-5 0-5 [facility] CenterErythrocytes detection in urine sediment by light hiqjhcizyc8802-09-43 08:41:00* Test Item Value Reference Range Interpretation Comments Urine RBC (test code = 82282-1) 0-5 0-5 [facility] CenterBacteria detection in urine sediment by light tljmryspyv6398-53-17 08:41:00* Test Item Value Reference Range Interpretation Comments Urine Bacteria (test code = 81599-6) RARE NONE [facility] CenterEpithelial cells detection in urine sediment by light zbqshbanvi5951-53-50 08:41:00* Test Item Value Reference Range Interpretation Comments Urine Epithelial Cells (test code = 96346-6) FEW NONE [facility] CenterUrine sodium measurement (moles/volume) 2019-11-04 08:41:00* Test Item Value Reference Range Interpretation Comments Urine Random Sodium (test code = 2955-3) 38 [facility] CenterOsmolality of Serum or Plasma by qqupsnsrwub6021-05-71 08:41:00* Test Item Value Reference Range Interpretation Comments Serum Osmolality (test code = 39117-1) 288 278-305 [facility] CenterOsmolality of Flklb4408-35-55 08:41:00* Test Item Value Reference Range Interpretation Comments Urine Osmolality (test code = 2695-5) 274 . 24 hr : 300 - 900 Random: 50 - 1400 After 12hr fluid restriction: >850Performed at: [facility] [id number] Director: Garett Irvin MD, Phone: [phone] Medical CenterOsmolality of Serum or Guckhd3589-47-81 08:41:00* Test Item Value Reference Range Interpretation Comments Serum Osmolality (test code = 2692-2) 301 280-301 Performed at: [facility] [address] [id number] Director: Garett Irvin MD, Phone: [phone] Medical CenterCapillary blood glucose measurement by glucometer (mass/volume)2019-10-29 16:03:00* Test Item Value Reference Range Interpretation Comments Bedside Glucose (test code = 09955-7) 312 70-120 Meter ID: [id number] [facility] CampusCapillary blood glucose measurement by glucometer (mass/volume)2019-10-29 16:03:00* Test Item Value Reference Range Interpretation Comments Bedside Glucose (test code = 69908-0) 312 70-120 Meter ID: [id number] Saint Anthony's HospitalBlood leukocytes automated count (number/volume)2019-10-29 04:35:00* Test Item Value Reference Range Interpretation Comments White Blood Count (test code = 6690-2) 9.27 4.8-10.8 [facility] CenterBlood erythrocytes automated count (number/volume)2019-10-29 04:35:00* Test Item Value Reference Range Interpretation Comments Red Blood Count (test code = 789-8) 3.61 3.6-5.1 [facility] CenterBlood hemoglobin measurement (moles/volume)2019-10-29 04:35:00* Test Item Value Reference Range Interpretation Comments Hemoglobin (test code = 41182-6) 10.2 12.0-16.0 [facility] CenterAutatrium healthed blood hematocrit (volume fraction)2019-10-29 04:35:00* Test Item Value Reference Range Interpretation Comments Hematocrit (test code = 4544-3) 31.8 34.2-44.1 [facility] CenterAutomated erythrocyte mean corpuscular ueclqy1097-09-43 04:35:00* Test Item Value Reference Range Interpretation Comments Mean Corpuscular Volume (test code = 787-2) 88.1 81-99 [facility] CenterAutomated erythrocyte mean corpuscular hemoglobin (mass per erythrocyte)2019-10-29 04:35:00* Test Item Value Reference Range Interpretation Comments Mean Corpuscular Hemoglobin (test code = 785-6) 28.3 28-32 [facility] CenterAutomated erythrocyte mean corpuscular hemoglobin concentration measurement (mass/volume)2019-10-29 04:35:00* Test Item Value Reference Range Interpretation Comments Mean Corpuscular Hemoglobin Concent (test code = 786-4) 32.1 31-35 [facility] CenterRDW TcwRv-Rfi8981-41-26 04:35:00* Test Item Value Reference Range Interpretation Comments Red Cell Distribution Width (test code = 72574-8) 13.1 11.7 -14.4 [facility] CenterAutomated blood platelet count (count/volume)2019-10-29 04:35:00* Test Item Value Reference Range Interpretation Comments Platelet Count (test code = 777-3) 383 140-360 [facility] CenterAutomated blood segmented neutrophil count as percentage of total mdztwlzoal1507-87-13 04:35:00* Test Item Value Reference Range Interpretation Comments Neutrophils (%) (Auto) (test code = 13035-4) 58.7 38.7-80.0 [facility] CenterAutomated blood lymphocyte count as percentage ot total gmmjuxcyex1686-71-80 04:35:00* Test Item Value Reference Range Interpretation Comments Lymphocytes (%) (Auto) (test code = 736-9) 30.2 18.0-39.1 [facility] CenterAutomated blood monocyte count as percentage of total cdzsesapzg7988-21-78 04:35:00* Test Item Value Reference Range Interpretation Comments Monocytes (%) (Auto) (test code = 5905-5) 10.5 4.4-11.3 [facility] CenterAutomated blood eosinophil count as percentage of total fugbpwkbmu7151-95-18 04:35:00* Test Item Value Reference Range Interpretation Comments Eosinophils (%) (Auto) (test code = 713-8) 0.0 0.0-6.0 [facility] CenterAutomated blood basophil count as percentage of total illpvdyfmv0224-67-97 04:35:00* Test Item Value Reference Range Interpretation Comments Basophils (%) (Auto) (test code = 706-2) 0.3 0.0-1.0 [facility] CenterFluoroscopic procedure less than one hour yeolcbld2434-28-80 04:35:00* Test Item Value Reference Range Interpretation Comments IM GRANULOCYTES % (test code = IM GRANULOCYTES %) 0.3 0.0- 1.0 [facility] CenterAutomated blood neutrophil count 2019-10-29 04:35:00* Test Item Value Reference Range Interpretation Comments Neutrophils # (Auto) (test code = 751-8) 5.4 2.1-6.9 [facility] CenterBlood lymphocytes count (number/volume) 2019-10-29 04:35:00* Test Item Value Reference Range Interpretation Comments Lymphocytes # (Auto) (test code = 51292-3) 2.8 1.0-3.2 [facility] CenterBlood monocytes automated count (number/volume)2019-10-29 04:35:00* Test Item Value Reference Range Interpretation Comments Monocytes # (Auto) (test code = 742-7) 1.0 0.2-0.8 [facility] CenterAutomated blood eosinophil count 2019-10-29 04:35:00* Test Item Value Reference Range Interpretation Comments Eosinophils # (Auto) (test code = 711-2) 0.0 0.0-0.4 [facility] CenterAutomated blood basophil count (count/volume)2019-10-29 04:35:00* Test Item Value Reference Range Interpretation Comments Basophils # (Auto) (test code = 704-7) 0.0 0.0-0.1 [facility] CenterFluoroscopic procedure less than one hour omllblyr4806-02-08 04:35:00* Test Item Value Reference Range Interpretation Comments Absolute Immature Granulocyte (auto (ирина t code = Absolute Immature Granulocyte (auto) 0.03 0-0.1 [facility] plasma sodium measurement (moles/volume)2019-10-29 04:35:00* Test Item Value Reference Range Interpretation Comments Sodium Level (test code = 2951-2) 139 136-145 [facility] Areaer[facility] or plasma potassium measurement (moles/volume)2019-10-29 04:35:00* Test Item Value Reference Range Interpretation Comments Potassium Level (test code = 2823-3) 3.3 3.5-5.1 [facility] Areaer[facility] or plasma chloride measurement (moles/volume)2019-10-29 04:35:00* Test Item Value Reference Range Interpretation Comments Chloride Level (test code = 2075-0) 93 98-107 [facility] Areaer[facility] or plasma carbon dioxide, total measurement (moles/volume)2019-10-29 04:35:00* Test Item Value Reference Range Interpretation Comments Carbon Dioxide Level (test code = 2028-9) 33 22-29 [facility] Areaer[facility] or plasma anion cxf8634-50-52 04:35:00* Test Item Value Reference Range Interpretation Comments Anion Gap (test code = 12654-0) 16.3 8-16 [facility] Areaer[facility] or plasma urea nitrogen measurement (mass/volume)2019-10-29 04:35:00* Test Item Value Reference Range Interpretation Comments Blood Urea Nitrogen (test code = 3094-0) 25 7-26 [facility] Area[facility] or plasma creatinine measurement (mass/volume)2019-10-29 04:35:00* Test Item Value Reference Range Interpretation Comments Creatinine (test code = 2160-0) 2.43 0.57-1.11 [facility] Areaer[facility] or plasma urea nitrogen/creatinine mass yvxcx7179-22-98 04:35:00* Test Item Value Reference Range Interpretation Comments BUN/Creatinine Ratio (test code = 3097-3) 10 6-25 [facility] CenterEstimated glomerular filtration rate (GFR) fbokxxibydinp6997-19-71 04:35:00* Test Item Value Reference Range Interpretation Comments Estimat Glomerular Filtration Rate (test code = 941716712) 20 >60 Ranges were taken from the National Kidney Disease Education Program and the Rosalinda qu[employer] healthal [employer] literature.Reference ranges:60 or greater: Pmwduk45-56 ( for 3 consecutive months): Chronic kidney disease 15 or less: Kidney failureTexoma Medical CenterGlucose ddkmkjkhdak2104-31-01 04:35:00* Test Item Value Reference Range Interpretation Comments Glucose Level (test code = PPC7550) 178 74-118 [facility] Areaer[facility] or plasma calcium measurement (mass/volume)2019-10-29 04:35:00* Test Item Value Reference Range Interpretation Comments Calcium Level (test code = 71120-4) 8.0 8.4-10.2 [facility] Areaer[facility] or plasma total bilirubin measurement (mass/volume)2019-10-28 04:50:00* Test Item Value Reference Range Interpretation Comments Total Bilirubin (test code = 1975-2) 0.3 0.2-1.2 [facility] CenterFluoroscopic procedure less than one hour lwvveqik4717-70-01 04:50:00* Test Item Value Reference Range Interpretation Comments Aspartate Amino Transf (AST/SGOT) (test code = Aspartate Amino Transf (AST/SGOT)) 10 5-34 [facility] Areaer[facility] or plasma alanine aminotransferase measurement (enzymatic activity/volume)2019-10-28 04:50:00* Test Item Value Reference Range Interpretation Comments Alanine Aminotransferase (ALT/SGPT) (test code = 1742-6) 12 0-55 [facility] Areaer[facility] or plasma protein measurement (mass/volume)2019-10-28 04:50:00* Test Item Value Reference Range Interpretation Comments Total Protein (test code = 2885-2) 6.1 6.5-8.1 [facility] Area[facility] or plasma albumin measurement (mass/volume)2019-10-28 04:50:00* Test Item Value Reference Range Interpretation Comments Albumin (test code = 1751-7) 2.9 3.5-5.0 [facility] CenterPlasma globulin measurement (mass/volume) 2019-10-28 04:50:00* Test Item Value Reference Range Interpretation Comments Globulin (test code = 32914-1) 3.2 2.3-3.5 [facility] Area[facility] or plasma albumin/globulin mass oncaq1020-59-97 04:50:00* Test Item Value Reference Range Interpretation Comments Albumin/Globulin Ratio (test code = 1759-0) 0.9 0.8-2.0 [facility] or plasma alkaline phosphatase measurement (enzymatic activity/volume)2019-10-28 04:50:00* Test Item Value Reference Range Interpretation Comments Alkaline Phosphatase (test code = 6768-6) 53 40-150 [facility] CenterCapillary blood glucose measurement by glucometer (mass/volume)2019-10-27 11:02:00* Test Item Value Reference Range Interpretation Comments Bedside Glucose (test code = 19994-6) 226 70-120 Meter ID: [id number] Medical CenterBlood leukocytes automated count (number/volume)2019-10-27 05:15:00* Test Item Value Reference Range Interpretation Comments White Blood Count (test code = 6690-2) 9.57 4.8-10.8 [facility] CenterBlood erythrocytes automated count (number/volume)2019-10-27 05:15:00* Test Item Value Reference Range Interpretation Comments Red Blood Count (test code = 789-8) 3.82 3.6-5.1 [facility] CenterBlood hemoglobin measurement (moles/volume)2019-10-27 05:15:00* Test Item Value Reference Range Interpretation Comments Hemoglobin (test code = 68015-1) 10.8 12.0-16.0 [facility] CenterAutomated blood hematocrit (volume fraction)2019-10-27 05:15:00* Test Item Value Reference Range Interpretation Comments Hematocrit (test code = 4544-3) 31.6 34.2-44.1 [facility] CenterAutomated erythrocyte mean corpuscular ipfmmb3308-99-21 05:15:00* Test Item Value Reference Range Interpretation Comments Mean Corpuscular Volume (test code = 787-2) 82.7 81-99 [facility] CenterAutomated erythrocyte mean corpuscular hemoglobin (mass per erythrocyte)2019-10-27 05:15:00* Test Item Value Reference Range Interpretation Comments Mean Corpuscular Hemoglobin (test code = 785-6) 28.3 28-32 [facility] CenterAutomated erythrocyte mean corpuscular hemoglobin concentration measurement (mass/volume)2019-10-27 05:15:00* Test Item Value Reference Range Interpretation Comments Mean Corpuscular Hemoglobin Concent (test code = 786-4) 34.2 31-35 [facility] CenterRDW UflRr-Ebq8903-43-24 05:15:00* Test Item Value Reference Range Interpretation Comments Red Cell Distribution Width (test code = 58865-6) 12.0 11.7 -14.4 [facility] CenterAutomated blood platelet count (count/volume)2019-10-27 05:15:00* Test Item Value Reference Range Interpretation Comments Platelet Count (test code = 777-3) 328 140-360 [facility] CenterAutatrium healthed blood segmented neutrophil count as percentage of total sezhcnjxfl2924-05-22 05:15:00* Test Item Value Reference Range Interpretation Comments Neutrophils (%) (Auto) (test code = 10635-5) 70.5 38.7-80.0 [facility] CenterAutomated blood lymphocyte count as percentage ot total vpbjyayoxl4791-39-79 05:15:00* Test Item Value Reference Range Interpretation Comments Lymphocytes (%) (Auto) (test code = 736-9) 18.2 18.0-39.1 [facility] CenterAutomated blood monocyte count as percentage of total qbbmankwmq5551-71-75 05:15:00* Test Item Value Reference Range Interpretation Comments Monocytes (%) (Auto) (test code = 5905-5) 10.4 4.4-11.3 [facility] CenterAutomated blood eosinophil count as percentage of total zysaissmdw8844-54-15 05:15:00* Test Item Value Reference Range Interpretation Comments Eosinophils (%) (Auto) (test code = 713-8) 0.0 0.0-6.0 [facility] CenterAutomated blood basophil count as percentage of total sqpvqotvoo3491-52-99 05:15:00* Test Item Value Reference Range Interpretation Comments Basophils (%) (Auto) (test code = 706-2) 0.6 0.0-1.0 [facility] CenterFluoroscopic procedure less than one hour nefvntxi6298-22-99 05:15:00* Test Item Value Reference Range Interpretation Comments IM GRANULOCYTES % (test code = IM GRANULOCYTES %) 0.3 0.0- 1.0 [facility] CenterAutomated blood neutrophil count 2019-10-27 05:15:00* Test Item Value Reference Range Interpretation Comments Neutrophils # (Auto) (test code = 751-8) 6.7 2.1-6.9 [facility] CenterBlood lymphocytes count (number/volume) 2019-10-27 05:15:00* Test Item Value Reference Range Interpretation Comments Lymphocytes # (Auto) (test code = 45204-3) 1.7 1.0-3.2 [facility] CenterBlood monocytes automated count (number/volume)2019-10-27 05:15:00* Test Item Value Reference Range Interpretation Comments Monocytes # (Auto) (test code = 742-7) 1.0 0.2-0.8 [facility] CenterAutomated blood eosinophil count 2019-10-27 05:15:00* Test Item Value Reference Range Interpretation Comments Eosinophils # (Auto) (test code = 711-2) 0.0 0.0-0.4 [facility] CenterAutomated blood basophil count (count/volume)2019-10-27 05:15:00* Test Item Value Reference Range Interpretation Comments Basophils # (Auto) (test code = 704-7) 0.1 0.0-0.1 [facility] CenterFluoroscopic procedure less than one hour nrrxhwfu0391-69-92 05:15:00* Test Item Value Reference Range Interpretation Comments Absolute Immature Granulocyte (auto (ирина t code = Absolute Immature Granulocyte (auto) 0.03 0-0.1 [facility] or plasma sodium measurement (moles/volume)2019-10-27 05:15:00* Test Item Value Reference Range Interpretation Comments Sodium Level (test code = 2951-2) 126 136-145 [facility] Areaer[facility] or plasma potassium measurement (moles/volume)2019-10-27 05:15:00* Test Item Value Reference Range Interpretation Comments Potassium Level (test code = 2823-3) 3.2 3.5-5.1 [facility] Areaer[facility] or plasma chloride measurement (moles/volume)2019-10-27 05:15:00* Test Item Value Reference Range Interpretation Comments Chloride Level (test code = 2075-0) 89 98-107 [facility] Areaerum or plasma carbon dioxide, total measurement (moles/volume)2019-10-27 05:15:00* Test Item Value Reference Range Interpretation Comments Carbon Dioxide Level (test code = 2028-9) 23 22-29 [facility] Areaerum or plasma anion gbb2155-99-22 05:15:00* Test Item Value Reference Range Interpretation Comments Anion Gap (test code = 28628-7) 17.2 8-16 [facility] Areaerum or plasma urea nitrogen measurement (mass/volume)2019-10-27 05:15:00* Test Item Value Reference Range Interpretation Comments Blood Urea Nitrogen (test code = 3094-0) 33 7-26 [facility] Areaer[facility] or plasma creatinine measurement (mass/volume)2019-10-27 05:15:00* Test Item Value Reference Range Interpretation Comments Creatinine (test code = 2160-0) 2.80 0.57-1.11 [facility] Areaer[facility] or plasma urea nitrogen/creatinine mass hsitu7715-89-07 05:15:00* Test Item Value Reference Range Interpretation Comments BUN/Creatinine Ratio (test code = 3097-3) 12 6-25 [facility] CenterEstimated glomerular filtration rate (GFR) nqtexpomsruaf9007-69-81 05:15:00* Test Item Value Reference Range Interpretation Comments Estimat Glomerular Filtration Rate (test code = 704995115) 17 >60 Ranges were taken from the National Kidney Disease Education Program and the Rosalinda quorum healthal Kid[employer] Foundation literature.Reference ranges:60 or greater: Agzzzt60-74 ( for 3 consecutive months): Chronic kidney disease 15 or less: Kidney failureTexoma Medical CenterGlucose dsieqwumjxk4010-88-77 05:15:00* Test Item Value Reference Range Interpretation Comments Glucose Level (test code = FLS6952) 121 74-118 [facility]er[facility] or plasma calcium measurement (mass/volume)2019-10-27 05:15:00* Test Item Value Reference Range Interpretation Comments Calcium Level (test code = 42008-7) 7.8 8.4-10.2 [facility] Areaer[facility] or plasma total bilirubin measurement (mass/volume)2019-10-27 05:15:00* Test Item Value Reference Range Interpretation Comments Total Bilirubin (test code = 1975-2) 0.4 0.2-1.2 [facility] CenterFluoroscopic procedure less than one hour moznlhsl2242-30-08 05:15:00* Test Item Value Reference Range Interpretation Comments Aspartate Amino Transf (AST/SGOT) (test code = Aspartate Amino Transf (AST/SGOT)) 14 5-34 [facility] Areaer[facility] or plasma alanine aminotransferase measurement (enzymatic activity/volume)2019-10-27 05:15:00* Test Item Value Reference Range Interpretation Comments Alanine Aminotransferase (ALT/SGPT) (test code = 1742-6) 14 0-55 [facility]2020-07-24 05:15:00* Test Item Value Reference Range Interpretation Comments Ammonia (test code = 66245-6) 40 31-123 [facility] or plasma protein measurement (mass/volume)2019-10-27 05:15:00* Test Item Value Reference Range Interpretation Comments Total Protein (test code = 2885-2) 6.1 6.5-8.1 [facility] or plasma albumin measurement (mass/volume)2019-10-27 05:15:00* Test Item Value Reference Range Interpretation Comments Albumin (test code = 1751-7) 3.1 3.5-5.0 [facility] CenterPlasma globulin measurement (mass/volume) 2019-10-27 05:15:00* Test Item Value Reference Range Interpretation Comments Globulin (test code = 70008-0) 3.0 2.3-3.5 [facility] or plasma albumin/globulin mass shrkj7724-34-01 05:15:00* Test Item Value Reference Range Interpretation Comments Albumin/Globulin Ratio (test code = 1759-0) 1.0 0.8-2.0 [facility] plasma alkaline phosphatase measurement (enzymatic activity/volume)2019-10-27 05:15:00* Test Item Value Reference Range Interpretation Comments Alkaline Phosphatase (test code = 6768-6) 51 40-150 [facility]2020-07-24 05:15:00* Test Item Value Reference Range Interpretation Comments Ammonia (test code = 56064-8) 40 31-123 [facility]2020-07-24 05:15:00* Test Item Value Reference Range Interpretation Comments Ammonia (test code = 25103-9) 40 31-123 [facility]2020-07-24 05:15:00* Test Item Value Reference Range Interpretation Comments Ammonia (test code = 41875-0) 40 31-123 [facility]ROPERITONEAL NDZL8344-27-97 17:05:00 [facility] [address] [id number] Patient Name: YARELI BOCANEGRA MR #: [id number] : 1950 Age/Sex: 69/F Req #: [id number] Adm Physician: EDIS JOEL MD Ordered by: MAYNOR FERRELL MD, MD Report #: [id number] Location: MED/SURG Room/Bed: [facility] Procedure: [id number] US/US JARVIS L RETROPERITONEAL COMP Exam Date: [...] Transcribed By: NABOR on 10/26/191705 COPY TO: MAYNOR FERRELL Urine protein measurement (mass/volume)2019-10-26 15:26:00* Test Item Value Reference Range Interpretation Comments Urine Random Total Protein (test code = 2888-6) < 6.8 1-14 [facility] (moles/volume) 2019-10-26 15:26:00* Test Item Value Reference Range Interpretation Comments Urine Random Sodium (test code = 2955-3) 37 [facility] creatinine measurement (mass/volume)2019-10-26 15:26:00* Test Item Value Reference Range Interpretation Comments Urine Creatinine (test code = 2161-8) 29.33 47-110 [facility] CenterRandom urine protein/creatinine ratio 2019-10-26 15:26:00* Test Item Value Reference Range Interpretation Comments Urine Protein/Creatinine Ratio (test code = 72384-1) 0.00 [facility] CenterOsmolality of Iiqsu3346-46-31 15:26:00* Test Item Value Reference Range Interpretation Comments Urine Osmolality (test code = 2695-5) 169 . 24 hr : 300 - 900 Random: 50 - 1400 After 12hr fluid restriction: >850Performed at: HD - [facility] [address] [id number] Director: Garett Irvin MD, Phone: [phone] Medical CenterUrine protein measurement (mass/volume)2019-10-26 15:26:00* Test Item Value Reference Range Interpretation Comments Urine Random Total Protein (test code = 2888-6) < 6.8 - [facility] Center[facility] sodium measurement (moles/volume) 2019-10-26 15:26:00* Test Item Value Reference Range Interpretation Comments Urine Random Sodium (test code = 2955-3) 37 [facility] CenterU[facility] creatinine measurement (mass/volume)2019-10-26 15:26:00* Test Item Value Reference Range Interpretation Comments Urine Creatinine (test code = 2161-8) 29.33 47-110 [facility] CenterRandom urine protein/creatinine ratio 2019-10-26 15:26:00* Test Item Value Reference Range Interpretation Comments Urine Protein/Creatinine Ratio (test code = 10739-8) 0.00 [facility] CenterOsmolality of Ydori4371-11-35 15:26:00* Test Item Value Reference Range Interpretation Comments Urine Osmolality (test code = 2695-5) 169 . 24 hr : 300 - 900 Random: 50 - 1400 After 12hr fluid restriction: >850Performed at: [facility] - [facility] [address] [id number] Director: Garett Irvin MD, Phone: [phone] Medical CenterUrine protein measurement (mass/volume)2019-10-26 15:26:00* Test Item Value Reference Range Interpretation Comments Urine Random Total Protein (test code = 2888-6) < 6.8 1-14 [facility] CenterU[facility] creatinine measurement (mass/volume)2019-10-26 15:26:00* Test Item Value Reference Range Interpretation Comments Urine Creatinine (test code = 2161-8) 29.33 47-110 [facility] CenterRandom urine protein/creatinine ratio 2019-10-26 15:26:00* Test Item Value Reference Range Interpretation Comments Urine Protein/Creatinine Ratio (test code = 26584-0) 0.00 [facility] CenterOsmolality of Baani6678-34-20 15:26:00* Test Item Value Reference Range Interpretation Comments Urine Osmolality (test code = 2695-5) 169 . 24 hr : 300 - 900 Random: 50 - 1400 After 12hr fluid restriction: >850Performed at: HD - [facility] [address] [id number] Director: Garett Irvin MD, Phone: [phone] Medical CenterUrine protein measurement (mass/volume)2019-10-26 15:26:00* Test Item Value Reference Range Interpretation Comments Urine Random Total Protein (test code = 2888-6) < 6.8 1-14 [facility] CenterUrine creatinine measurement (mass/volume)2019-10-26 15:26:00* Test Item Value Reference Range Interpretation Comments Urine Creatinine (test code = 2161-8) 29.33 47-110 [facility] CenterRandom urine protein/creatinine ratio 2019-10-26 15:26:00* Test Item Value Reference Range Interpretation Comments Urine Protein/Creatinine Ratio (test code = 74985-2) 0.00 [facility] CenterFluoroscopic procedure less than one hour rovzoiyk4389-94-85 05:00:00* Test Item Value Reference Range Interpretation Comments Hemoglobin A1c Percent (test code = Hemoglobin A1c Percent) 11.8 4.0-7.0 [facility] CenterPhosphorus vhigvayrwcv7072-89-63 05:00:00 * Test Item Value Reference Range Interpretation Comments Phosphorus Level (test code = FXO4384) 5.0 2.3-4.7 [facility] plasma magnesium measurement (mass/volume)2019-10-26 05:00:00* Test Item Value Reference Range Interpretation Comments Magnesium Level (test code = 91058-6) 1.6 1.3-2.1 [facility] Areaer[facility] or plasma triglyceride measurement (mass/volume)2019-10-26 05:00:00* Test Item Value Reference Range Interpretation Comments Triglycerides Level (test code = 2571-8) 134 0-149 [facility] Areaer[facility] or plasma cholesterol measurement (mass/volume)2019-10-26 05:00:00* Test Item Value Reference Range Interpretation Comments Cholesterol Level (test code = 2093-3) 86 0-199 Less than 200 mg/dL Low Rvsg246 - 239 mg/dL Borderline Ulpn135 m g/dl and greater High Risk [facility] or plasma cholesterol in LDL measurement (mass/volume) 2019-10-26 05:00:00* Test Item Value Reference Range Interpretation Comments LDL Cholesterol (test code = 2089-1) 26 60-130 [facility] Area[facility] or plasma cholesterol in HDL measurement (mass/volume)2019-10-26 05:00:00* Test Item Value Reference Range Interpretation Comments HDL Cholesterol (test code = 2085-9) 33 40-60 [facility] Areaer[facility] or plasma total cholesterol/cholesterol in HDL mass ianre4045-47-15 05:00:00* Test Item Value Reference Range Interpretation Comments Cholesterol/HDL Ratio (test code = 9830-1) 2.6 3.0-3.6 [facility]er[facility] or plasma thyrotropin measurement by detection limit <= 0.005 miu/l (units/volume)2019-10-26 05:00:00* Test Item Value Reference Range Interpretation Comments Thyroid Stimulating Hormone (TSH) (test code = 89015-4) 0.155 0.350-4.940 [facility] CenterOsmolality of Serum or Tncwku9485-59-32 05:00:00* Test Item Value Reference Range Interpretation Comments Serum Osmolality (test code = 2692-2) 241 280-301 Performed at: [facility] [address] [id number] Director: Garett Irvin MD, Phone: [phone] Medical CenterFluoroscopic procedure less than one hour ckwplrfl6607-46-82 05:00:00* Test Item Value Reference Range Interpretation Comments Hemoglobin A1c Percent (test code = Hemoglobin A1c Percent) 11.8 4.0-7.0 [facility] CenterPhosphorus goaysytxbzu4165-75-40 05:00:00 * Test Item Value Reference Range Interpretation Comments Phosphorus Level (test code = CHX1240) 5.0 2.3-4.7 [facility] plasma magnesium measurement (mass/volume)2019-10-26 05:00:00* Test Item Value Reference Range Interpretation Comments Magnesium Level (test code = 18069-8) 1.6 1.3-2.1 [facility] or plasma triglyceride measurement (mass/volume)2019-10-26 05:00:00* Test Item Value Reference Range Interpretation Comments Triglycerides Level (test code = 2571-8) 134 0-149 [facility] or plasma cholesterol measurement (mass/volume)2019-10-26 05:00:00* Test Item Value Reference Range Interpretation Comments Cholesterol Level (test code = 2093-3) 86 0-199 Less than 200 mg/dL Low Gwhj483 - 239 mg/dL Borderline Hlyj833 m g/dl and greater High Risk [facility] or plasma cholesterol in LDL measurement (mass/volume) 2019-10-26 05:00:00* Test Item Value Reference Range Interpretation Comments LDL Cholesterol (test code = 2089-1) 26 60-130 [facility]er[facility] or plasma cholesterol in HDL measurement (mass/volume)2019-10-26 05:00:00* Test Item Value Reference Range Interpretation Comments HDL Cholesterol (test code = 2085-9) 33 40-60 [facility]er[facility] or plasma total cholesterol/cholesterol in HDL mass gsmjj6098-42-83 05:00:00* Test Item Value Reference Range Interpretation Comments Cholesterol/HDL Ratio (test code = 9830-1) 2.6 3.0-3.6 [facility] or plasma thyrotropin measurement by detection limit <= 0.005 miu/l (units/volume)2019-10-26 05:00:00* Test Item Value Reference Range Interpretation Comments Thyroid Stimulating Hormone (TSH) (test code = 66056-9) 0.155 0.350-4.940 [facility] CenterOsmolality of Serum or Qwthgz5909-50-34 05:00:00* Test Item Value Reference Range Interpretation Comments Serum Osmolality (test code = 2692-2) 241 280-301 Performed at: - [address] [id number] Director: Garett Irvin MD, Phone: [phone] Medical CenterFluoroscopic procedure less than one hour wnqjulaq1779-35-15 05:00:00* Test Item Value Reference Range Interpretation Comments Hemoglobin A1c Percent (test code = Hemoglobin A1c Percent) 11.8 4.0-7.0 [facility] CenterPhosphorus olbevskcbwu9983-59-44 05:00:00 * Test Item Value Reference Range Interpretation Comments Phosphorus Level (test code = EAJ0818) 5.0 2.3-4.7 [facility] or plasma magnesium measurement (mass/volume)2019-10-26 05:00:00* Test Item Value Reference Range Interpretation Comments Magnesium Level (test code = 84501-8) 1.6 1.3-2.1 [facility] or plasma triglyceride measurement (mass/volume)2019-10-26 05:00:00* Test Item Value Reference Range Interpretation Comments Triglycerides Level (test code = 2571-8) 134 0-149 [facility] or plasma cholesterol measurement (mass/volume)2019-10-26 05:00:00* Test Item Value Reference Range Interpretation Comments Cholesterol Level (test code = 2093-3) 86 0-199 Less than 200 mg/dL Low Bnnu138 - 239 mg/dL Borderline Qrbi361 m g/dl and greater High Risk [facility] or plasma cholesterol in LDL measurement (mass/volume) 2019-10-26 05:00:00* Test Item Value Reference Range Interpretation Comments LDL Cholesterol (test code = 2089-1) 26 60-130 [facility] or plasma cholesterol in HDL measurement (mass/volume)2019-10-26 05:00:00* Test Item Value Reference Range Interpretation Comments HDL Cholesterol (test code = 2085-9) 33 40-60 [facility]er[facility] or plasma total cholesterol/cholesterol in HDL mass pcdyh8065-51-47 05:00:00* Test Item Value Reference Range Interpretation Comments Cholesterol/HDL Ratio (test code = 9830-1) 2.6 3.0-3.6 [facility] or plasma thyrotropin measurement by detection limit <= 0.005 miu/l (units/volume)2019-10-26 05:00:00* Test Item Value Reference Range Interpretation Comments Thyroid Stimulating Hormone (TSH) (test code = 73111-3) 0.155 0.350-4.940 [facility] CenterOsmolality of Serum or Nhhhis1662-97-07 05:00:00* Test Item Value Reference Range Interpretation Comments Serum Osmolality (test code = 2692-2) 241 280-301 Performed at: - [address] [id number] Director: Garett Irvin MD, Phone: [phone] Medical CenterFluoroscopic procedure less than one hour fkshzimy5964-39-18 05:00:00* Test Item Value Reference Range Interpretation Comments Hemoglobin A1c Percent (test code = Hemoglobin A1c Percent) 11.8 4.0-7.0 [facility] CenterPhosphorus lzyfmoqmvqo1459-08-20 05:00:00 * Test Item Value Reference Range Interpretation Comments Phosphorus Level (test code = HHG4839) 5.0 2.3-4.7 [facility] or plasma magnesium measurement (mass/volume)2019-10-26 05:00:00* Test Item Value Reference Range Interpretation Comments Magnesium Level (test code = 70432-3) 1.6 1.3-2.1 [facility] or plasma triglyceride measurement (mass/volume)2019-10-26 05:00:00* Test Item Value Reference Range Interpretation Comments Triglycerides Level (test code = 2571-8) 134 0-149 [facility] Areaer[facility] or plasma cholesterol measurement (mass/volume)2019-10-26 05:00:00* Test Item Value Reference Range Interpretation Comments Cholesterol Level (test code = 2093-3) 86 0-199 Less than 200 mg/dL Low Coqe193 - 239 mg/dL Borderline Wbfz564 m g/dl and greater High Risk [facility] or plasma cholesterol in LDL measurement (mass/volume) 2019-10-26 05:00:00* Test Item Value Reference Range Interpretation Comments LDL Cholesterol (test code = 2089-1) 26 60-130 [facility] or plasma cholesterol in HDL measurement (mass/volume)2019-10-26 05:00:00* Test Item Value Reference Range Interpretation Comments HDL Cholesterol (test code = 2085-9) 33 40-60 [facility] or plasma total cholesterol/cholesterol in HDL mass ciwhn3898-43-21 05:00:00* Test Item Value Reference Range Interpretation Comments Cholesterol/HDL Ratio (test code = 9830-1) 2.6 3.0-3.6 [facility] or plasma thyrotropin measurement by detection limit <= 0.005 miu/l (units/volume)2019-10-26 05:00:00* Test Item Value Reference Range Interpretation Comments Thyroid Stimulating Hormone (TSH) (test code = 53775-1) 0.155 0.350-4.940 [facility] CenterFluoroscopic procedure less than one hour zvyxdqbk9236-26-94 16:23:00* Test Item Value Reference Range Interpretation [...] complexity tests.Testing performed by [facility] [address] [phone] Director: Jason Jackson M.D.CLIA # [id number] [facility] Fluoroscopic procedure less than one hour xndvnzsa0846-43-04 16:23:00* Test Item Value Reference Range Interpretation [...] complexity tests.Testing performed by [facility] [address] [phone] Director: Jason Jackson M.D.CLIA # [id number] [facility] Fluoroscopic procedure less than one hour mtrzcvki2251-70-91 16:23:00* Test Item Value Reference Range Interpretation [...] complexity tests.Testing performed by [facility] [address] [phone] Director: WILLIAN Stroud # [id number] [facility] Fluoroscopic procedure less than one hour eqqegthy6328-23-86 16:23:00* Test Item Value Reference Range Interpretation [...] complexity tests.Testing performed by [facility] [address] [place], [place] [phone] Director: Jason Jackson M.D.CLIA # [id number] [facility]/PELVIS HF2548-48-85 14:41:00 [place] [address] Patient Name: YARELI BOCANEGRA MR #: [id number] : 1950 Age/Sex: 69/F Req #: [id number] Adm Physician: Ordered by: JC ANAYA MD Report #: [id number] Location: ER Room/Bed: Procedure: [id number] CT/CT ABDOME N/PELVIS WO Exam Date: 10/25/19 Exam Time: 1420 REPORT STATUS: Signed EXAM: CT Abdom en and Pelvis WITHOUT intravenous contrast INDICATION: Flank pain CO MPARISON: None. TECHNIQUE: Abdomen and pelvis were scanned utilizing a [employer]ernia Network[employer] helical scanner from the lung base to [...] Color (test code = 5778-6) YELLOW YELLOW [facility] CenterUrine ylqnijx6825-63-92 14:07:00* Test Item Value Reference Range Interpretation Comments Urine Clarity (test code = 74196-0) SL CLOUDY CLEAR [facility] Areapecific gravity of Urine by Test strip 2019-10-25 14:07:00* Test Item Value Reference Range Interpretation Comments Urine Specific Powers (test code = 5811-5) 1.025 1.010-1.02 5 [facility] CenterU[facility] pH measurement by automated test ttqqm5687-70-98 14:07:00* Test Item Value Reference Range Interpretation Comments Urine pH (test code = 12670-8) 5 5-7 [facility] CenterU[facility] leukocyte esterase detection by uxrvjnnl6161-26-90 14:07:00* Test Item Value Reference Range Interpretation Comments Urine Leukocyte Esterase (test code = 5799-2) SMALL NEGATIVE [facility] CenterUrine nitrite xsjvjogjo4681-36-20 14:07:00* Test Item Value Reference Range Interpretation Comments Urine Nitrite (test code = 61422-2) NEGATIVE NEGATIVE [facility] CenterU[facility] protein measurement by test strip (mass/volume)2019-10-25 14:07:00* Test Item Value Reference Range Interpretation Comments Urine Protein (test code = 5804-0) TRACE NEGATIVE [facility] CenterU[facility] glucose bjvpmiycv2394-39-13 14:07:00* Test Item Value Reference Range Interpretation Comments Urine Glucose (UA) (test code = 2349-9) NEGATIVE NEGATIVE [facility] CenterUrine ketones detection by automated test omgjg7588-52-50 14:07:00* Test Item Value Reference Range Interpretation Comments Urine Ketones (test code = 72992-2) NEGATIVE NEGATIVE [facility] CenterUrine urobilinogen measurement by test strip (mass/volume)2019-10-25 14:07:00* Test Item Value Reference Range Interpretation Comments Urine Urobilinogen (test code = 07207-0) 0.2 0.2-1 [facility] CenterU[facility] total bilirubin measurement (mass/volume)2019-10-25 14:07:00* Test Item Value Reference Range Interpretation Comments Urine Bilirubin (test code = 1978-6) SMALL NEGATIVE [facility] CenterUrine erythrocytes qkkiudzwh5277-70-10 14:07:00* Test Item Value Reference Range Interpretation Comments Urine Blood (test code = 40505-4) TRACE NEGATIVE [facility] CenterAutomated urine sediment leukocyte count by microscopy (number/high power field)2019-10-25 14:07:00* Test Item Value Reference Range Interpretation Comments Urine WBC (test code = 5821-4) 6-10 0-5 [facility] CenterErythrocytes detection in urine sediment by light ybrnglulwc3013-62-01 14:07:00* Test Item Value Reference Range Interpretation Comments Urine RBC (test code = 09093-6) 0-5 0-5 [facility] CenterBacteria detection in urine sediment by light jkzwzvajyv3581-42-67 14:07:00* Test Item Value Reference Range Interpretation Comments Urine Bacteria (test code = 92469-9) MODERATE NONE [facility] CenterEpithelial cells detection in urine sediment by light qjdkfsxzgy6078-25-37 14:07:00* Test Item Value Reference Range Interpretation Comments Urine Epithelial Cells (test code = 56141-1) RARE NONE [facility] CenterTransitional cells detection in urine sediment by light tdckdntott8044-08-39 14:07:00* Test Item Value Reference Range Interpretation Comments Urine Transitional Epithelial Cells (test code = 8249-5) FEW NONE [facility] CenterAmorphous sediment detection in urine sediment by light afiikwzhah7269-32-53 14:07:00* Test Item Value Reference Range Interpretation Comments Urine Amorphous Sediment (test code = 8246-1) MODERATE FEW [facility] CenterUrine color tjtrzcvirocsk4877-92-93 14:07:00* Test Item Value Reference Range Interpretation Comments Urine Color (test code = 5778-6) YELLOW YELLOW [facility] CenterUrine afmisqo9488-86-52 14:07:00* Test Item Value Reference Range Interpretation Comments Urine Clarity (test code = 25665-9) SL CLOUDY CLEAR [facility] Areapecific gravity of Urine by Test strip 2019-10-25 14:07:00* Test Item Value Reference Range Interpretation Comments Urine Specific Powers (test code = 5811-5) 1.025 1.010-1.02 5 [facility] CenterU[facility] pH measurement by automated test qbsek1835-11-56 14:07:00* Test Item Value Reference Range Interpretation Comments Urine pH (test code = 19980-8) 5 5-7 [facility] CenterU[facility] leukocyte esterase detection by jwryhxql6962-41-79 14:07:00* Test Item Value Reference Range Interpretation Comments Urine Leukocyte Esterase (test code = 5799-2) SMALL NEGATIVE [facility] CenterUrine nitrite ofscczlmq4921-57-65 14:07:00* Test Item Value Reference Range Interpretation Comments Urine Nitrite (test code = 20825-0) NEGATIVE NEGATIVE [facility] CenterUrine protein measurement by test strip (mass/volume)2019-10-25 14:07:00* Test Item Value Reference Range Interpretation Comments Urine Protein (test code = 5804-0) TRACE NEGATIVE [facility] CenterUrine glucose oasqwfylt1986-08-21 14:07:00* Test Item Value Reference Range Interpretation Comments Urine Glucose (UA) (test code = 2349-9) NEGATIVE NEGATIVE [facility] CenterUrine ketones detection by automated test nwyui7101-56-53 14:07:00* Test Item Value Reference Range Interpretation Comments Urine Ketones (test code = 29771-8) NEGATIVE NEGATIVE [facility] CenterUrine urobilinogen measurement by test strip (mass/volume)2019-10-25 14:07:00* Test Item Value Reference Range Interpretation Comments Urine Urobilinogen (test code = 38603-8) 0.2 0.2-1 [facility] CenterU[facility] total bilirubin measurement (mass/volume)2019-10-25 14:07:00* Test Item Value Reference Range Interpretation Comments Urine Bilirubin (test code = 1978-6) SMALL NEGATIVE [facility] CenterUrine erythrocytes spvnnggjb5686-52-79 14:07:00* Test Item Value Reference Range Interpretation Comments Urine Blood (test code = 62927-2) TRACE NEGATIVE [facility] CenterAutomated urine sediment leukocyte count by microscopy (number/high power field)2019-10-25 14:07:00* Test Item Value Reference Range Interpretation Comments Urine WBC (test code = 5821-4) 6-10 0-5 [facility] CenterErythrocytes detection in urine sediment by light ayvzvxckwq9760-23-83 14:07:00* Test Item Value Reference Range Interpretation Comments Urine RBC (test code = 35383-4) 0-5 0-5 [facility] CenterBacteria detection in urine sediment by light jtsrgsxuzs5024-76-04 14:07:00* Test Item Value Reference Range Interpretation Comments Urine Bacteria (test code = 02536-5) MODERATE NONE [facility] CenterEpithelial cells detection in urine sediment by light kdmntgjsun2834-34-46 14:07:00* Test Item Value Reference Range Interpretation Comments Urine Epithelial Cells (test code = 96466-4) RARE NONE [facility] CenterTransitional cells detection in urine sediment by light euoslgcync7225-97-96 14:07:00* Test Item Value Reference Range Interpretation Comments Urine Transitional Epithelial Cells (test code = 8249-5) FEW NONE [facility] CenterAmorphous sediment detection in urine sediment by light kfmqfrilwp3756-73-72 14:07:00* Test Item Value Reference Range Interpretation Comments Urine Amorphous Sediment (test code = 8246-1) MODERATE FEW [facility] CenterTransitional cells detection in urine sediment by light giwycjgzvo0587-75-50 14:07:00* Test Item Value Reference Range Interpretation Comments Urine Transitional Epithelial Cells (test code = 8249-5) FEW NONE [facility] CenterAmorphous sediment detection in urine sediment by light aejofaaqkr0495-31-30 14:07:00* Test Item Value Reference Range Interpretation Comments Urine Amorphous Sediment (test code = 8246-1) MODERATE FEW [facility] CenterTransitional cells detection in urine sediment by light zoketdluvs9865-52-08 14:07:00* Test Item Value Reference Range Interpretation Comments Urine Transitional Epithelial Cells (test code = 8249-5) FEW NONE [facility] CenterAmorphous sediment detection in urine sediment by light gvrqhosgyn2405-58-81 14:07:00* Test Item Value Reference Range Interpretation Comments Urine Amorphous Sediment (test code = 8246-1) MODERATE FEW [facility] CenterCCP Anitbodies IgG & LjN2584-01-87 22:06:00* Test Item Value Reference Range Interpretation Comments CCP Antibodies IgG/IgA (test code = 77208-0) 9 0- 19 uni ts Negative <20 Weak positive 20 - 39 Moderate positive 40 - 59 Strong positive >59 AMBER (test code = AMBER) Performed at: [address] [place] [id number] Director: Enid Villatoro MD, Phone: [phone] [facility] HealthHemoglobin E6E5658-69-73 21:51:00* Test Item Value Reference Range Interpretation Comments Hemoglobin A1c (test code = 4548-4) 13.5 % 4.3-6.1 H Estimated Average Glucose (test code = 21361293) 341 mg/dL 70-11 0 H Lab Interpretation (test code = 13806-6) Abnormal [facility]BNP [B-Type Natriuretic Peptide]2019-01-05 17:18:00* Test Item Value Reference Range Interpretation Comments B Natriuretic Peptide (BNP) (test code = 73880691) 47 pg/mL <=1 00 Lab Interpretation (test code = 59567-9) Normal [facility] HealthSED Ukyy5431-22-94 17:03:00* Test Item Value Reference Range Interpretation Comments Sed Rate (test code = 21844675) 57 0-<30 mm/Hr H Lab Interpretation (test code = 19718-5) Abnormal [facility]2 Routine [id number] 16:40:00* Test Item Value Reference Range Interpretation Comments HIV Ag/Ab Combo (test code = 69161-2) Negative Negative Lab Interpretation (test code = 94994-4) Normal [facility]CBC/[id number] 16:11:00* Test Item Value Reference Range Interpretation [...] g/dL 32-36 L RDW (test code = 37917-3) 43.0 fL 36.4-46.3 Platelet (test code = 777-3) 251 K/uL 150-400 Mean Platelet Volume (test code = 78765-5) 12.2 fL 9.4-12.4 Percent NRBC (test code = 97436055) 0.0 % Neutrophil (test code = 770-8) 66.6 % 34-70 Lymphs (test code = 736-9) 26.0 % 20-50 Monocytes (test code = 5905-5) 6.4 % 5-12 Eos (test code = 713-8) 0.0 % 0.7-5 L Basos (test code = 706-2) 0.7 % 0.1-1.2 Immature Granulocytes (test code = 24791144) 0.3 % 0-0.5 Neutrophils (Absolute) (test code = 05508799) 6.04 K/uL 1.56-6.1 3 Lymphs (Absolute) (test code = 54469971) 2.36 K/uL 1.18-3.74 Monocytes(Absolute) (test code = 57816054) 0.58 K/uL 0.24-0.36 H Eos (Absolute) (test code = 07390144) 0.00 K/uL 0.04-0.36 L Baso (Absolute) (test code = 49815928) 0.06 K/uL 0.01-0.08 Immature Grans (Abs) (test code = 17480465) 0.03 K/uL 0-0.03 Absolute NRBC (test code = 06670101) 0.00 K/uL Lab Interpretation (test code = 41259-7) Abnormal [facility]itamin [id number] 15:43:00* Test Item Value Reference Range Interpretation Comments Vitamin B12 (test code = 53813720) 427 pg/mL See comment Normal: 180-914 pg/mLIntermittent: 145-180 pg/mLDeficient: <=145.0 pg/mL [facility] HealthTSH [Thyroid Stimulating Hormone]2019-01-05 15:32:00* Test Item Value Reference Range Interpretation Comments TSH (test code = 58017074) 2.34 0.57- 3.74 uIU/mL If , please see the following reference ranges (not verified by lab): 1st Trimester: 0.05 -3.70 uIU/mL2nd Trimester: 0.31 -4.35 uIU/mL3rd Trimester: 0.41 - 5.18 uIU/mL Lab Interpretation (test code = 91508-3) Normal [facility] HealthLipid [id number] 15:26:00* Test Item Value Reference Range Interpretation Comments Cholesterol (test code = 2093-3) 144.0 mg/dL <=200.0 Triglyceride (test code = 91231757) 132 mg/dL <150 HDL (test code = 2085-9) 51.0 mg/dL See Reference Range Narrative . LDL (test code = 84809-7) 67 mg/dL <100 Op timal: < 100.0 mg/dLNear Optimal: 120-129 mg/dLBorderline: 130-159 mg/dLHigh: 160-189 mg/dLVery High: >=190 mg/dL Patient Fasting? (test code = 26326132) Yes [facility]Ra [id number] 15:26:00* Test Item Value Reference Range Interpretation Comments RA (test code = 86611682) <10 <14 IU/mL Lab Interpretation (test code = 71451-8) Normal [facility] [id number] 15:26:00* Test Item Value Reference Range Interpretation Comments Sodium (test code = 2951-2) 135 mmol/L 136-145 L Potassium (test code = 2823-3) 4.7 mmol/L 3.5-5.1 Chloride (test code = 2075-0) 94 mmol/L 98-107 L CO2 (test code = 02523698) 29 mmol/L 21-31 Glucose (test code = 19748466) 367 mg/dL 70-110 H Calcium (test code = 24180081) 9.9 mg/dL 8.6-10.3 Urea Nitrogen (test code = 29643740) 15.0 mg/dL 7-25 Creatinine (test code = 27696871) 0.8 mg/dL 0.6-1.2 Alkaline Phosphatase (test code = 76457633) 76 U/L 34-104 ALT (test code = 19002671) 24 U/L 7-52 AST (test code = 13987038) 15 U/L 13-39 Total Protein (test code = 2885-2) 7.3 g/dL 6-8.3 GFR, Estimated (test code = 48740770) 71 >=90 mL/min/1.73 m2 L Albumin (test code = 31829-1) 4.4 g/dL 3.7-5.3 Anion Gap (test code = 27348660) 12 mmol/L 5-16 Lab Interpretation (test code = 48382-1) Abnormal [facility]albumin / Creatinine Urine [id number] 14:30:00* Test Item Value Reference Range Interpretation Comments Microalbumin, Random (test code = 85811905) 4.4 mg/dL <30.0 Creatinine, Urine (test code = 49593387) 23 mg/dL 20-320 Urine Microalbumin (test code = 48237819) 191.3 mg/g 0-30 H Lab Interpretation (test code = 56445-9) Abnormal [facility]
--- NOTE | 2020-01-06 00:37 | Diagnostic Imaging Report ---
Xray Lumbar Spine 3 views HISTORY: Pain. COMPARISON: Abdominal CT 10/25/2019 DISCUSSION: Some of the osseous structures are partially obscured by stool and bowel gas. There are five non-rib bearing lumbar vertebral bodies. The alignment of the spine is within normal limits. No displaced fracture or compression deformity is identified. Disc Spaces: The disc spaces are well maintained. Multilevel discussed defects. Decreased L3-L4 and L5-S1 disc height. 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 Degenerative changes in the pelvis and hips IMPRESSION: No acute radiographic abnormality. Degenerative changes in the lumbar spine, hips, and pelvis. Signed by: Jose Machado DO on 01/06/2020 12:34 AM
== END 2020-01-06 00:45 | disposition home or self-care (01) ==
LOC: ER 23:26
DX: M54.42 Lumbago with sciatica, left side (principal); I10 Essential (primary) hypertension; E11.9 Type 2 diabetes mellitus without complications; E78.5 Hyperlipidemia, unspecified
CPT/HCPCS: 72100; 99283; J1885

== ENCOUNTER 2020-04-12 02:19 | Emergency (ER) | payer MEDICARE ==
[~2020-04-12] VITALS: Ht 170.2 cm; Wt 77.1 kg
== END 2020-04-12 05:45 | disposition home or self-care (01) ==
LOC: ER 03:04
DX: M54.5 Low back pain (principal); M25.562 Pain in left knee; I10 Essential (primary) hypertension; E11.9 Type 2 diabetes mellitus without complications
CPT/HCPCS: 99282

== ENCOUNTER 2020-05-27 09:18 | Emergency (ER) | payer SELFPAY ==
[~2020-05-27] VITALS: Ht 170.2 cm; Wt 72.6 kg
[2020-05-27] MEDS ORDERED: SODIUM CHLORIDE 0.9% 1000ML 1,000 ML IV STA (09:26)
[2020-05-27] MEDS ORDERED: PANTOPRAZOLE 40 MG 10ML VIAL IV STA (09:26)
[2020-05-27 09:40] LABS: BASOPHILS # (AUTO) 0.1 (0.0-0.1); BASOPHILS % 0.7 % (0.0-1.0); EOSINOPHILS # (AUTO) 0.3 (0.0-0.4); EOSINOPHILS % 3.2 % (0.0-6.0); HEMATOCRIT 44.5 % (34.2-44.1); HEMOGLOBIN 14.6 g/dL (12.0-16.0); LYMPHOCYTES # (AUTO) 2.4 (1.0-3.2); LYMPHOCYTES % 28.2 % (18.0-39.1); MEAN CORPUSCULAR HEMOGLOBIN 28.3 pg (28-32); MEAN CORPUSCULAR HGB CONC 32.8 g/dL (31-35); MEAN CORPUSCULAR VOLUME 86.4 fL (81-99); MONOCYTES # (AUTO) 0.8 (0.2-0.8); MONOCYTES % 9.6 % (4.4-11.3); NEUTROPHILS # (AUTO) 4.9 (2.1-6.9); NEUTROPHILS % 58.1 % (38.7-80.0); PLATELET COUNT 368 x10e3/uL (140-360); RED BLOOD COUNT 5.15 x10e6/uL (3.6-5.1); RED CELL DISTRIBUTION WIDTH 13.2 % (11.7-14.4)
[2020-05-27] MEDS ORDERED: DIATRIZOATE MEGL/DIATRIZOA SOD 30 ML BTL PO ONE (09:41)
[2020-05-27 09:49] LABS: CLARITY,URINE CLEAR (CLEAR); COLOR,URINE YELLOW (YELLOW); KETONES,URINE 1+ (NEGATIVE); LEUKOCYTE ESTERASE ,URINE NEGATIVE (NEGATIVE); NITRITE,URINE NEGATIVE (NEGATIVE); PROTEIN,URINE DIPSTICK 2+ (NEGATIVE); URINE UROBILINOGEN 0.2 mg/dL (0.2 - 1)
[2020-05-27 09:54] LABS: BACTERIA,URINE RARE /HPF; EPITHELIAL CELLS,URINE FEW /LPF; INR 0.9; PROTHROMBIN TIME 12.7 seconds (11.9-14.5); RBC,URINE 0-5 /HPF (0-5); WBC,URINE (MAN) 0-5 /HPF (0-5)
[2020-05-27 09:55] LABS: PARTIAL THROMBOPLASTIN TIME 23.6 seconds (23.8-35.5)
[2020-05-27 10:03] LABS: ALBUMIN 3.8 g/dL (3.5-5.0); ANION GAP 15.2 mmol/L (8-16); CALCIUM 9.3 mg/dL (8.4-10.2); CREATININE, SERUM 0.99 mg/dL (0.57-1.11); MAGNESIUM 2.4 MG/DL (1.3-2.1); POTASSIUM 3.2 mmol/L (3.5-5.1)
[2020-05-27 10:10] LABS: CREATINE KINASE MB 0.6 ng/mL (0-5.0)
[2020-05-27] MEDS ORDERED: SODIUM CHLORIDE 0.9% 50ML 0 ML ONE (10:15)
[2020-05-27] MEDS ORDERED: IOPAMIDOL 370 MG/ML 200 ML INFUS..BTL INJ ONE ×2 (10:16→10:25)
[2020-05-27] MEDS ORDERED: SODIUM CHLORIDE 0.9% 50ML 50 ML ONE (10:25)
[2020-05-27] MEDS ORDERED: POTASSIUM CHLORIDE 20 MEQ TAB CR PO STA (10:59)
== END 2020-05-27 12:04 | disposition home or self-care (01) ==
LOC: ER 10:11
DX: R10.11 Right upper quadrant pain (principal); R11.0 Nausea; R14.0 Abdominal distension (gaseous); E11.65 Type 2 diabetes mellitus with hyperglycemia; M25.562 Pain in left knee; I10 Essential (primary) hypertension
CPT/HCPCS: 36415; 74177; 80053; 81001; 82550; 82553; 83690; 83735; 84484; 85025; 85610; 85730; 87086; 99284; C9113; J7030; Q9967